=== PATIENT | male | born 1945 | race Caucasian/White ===

== ENCOUNTER 2021-01-26 14:55 | Inpatient (IN) | payer OTHER, MEDICARE ==
[2021-01-26] MEDS ORDERED: Ondansetron 4 MG Tab.DIS PO PRN (15:32)
[2021-01-26] MEDS ORDERED: Sodium Chloride 0.9% 10 ML Syringe FLUSH PRN (15:32)
[2021-01-26] MEDS ORDERED: Acetaminophen 325 MG Tab PO PRN (15:32)
[2021-01-26] MEDS ORDERED: Ondansetron 4 MG/2 ML SDV IV PRN (15:32)
[2021-01-26] MEDS ORDERED: Lactated Ringers 1,000 ML IV ONE (15:45)
[2021-01-26] MEDS ORDERED: Piperacillin/Tazobactam 4.5 GM in Sodium Chloride 0.9% 100 ML IV ONE ×2 (16:00→17:00)
[2021-01-26] MEDS: Lactated Ringers 1,000 ML IV SCH (18:11)
[2021-01-26] MEDS: oxyCODONE 5 MG Tab PO PRN (18:15)
--- NOTE | 2021-01-26 18:43 | PCM.HP.2 ---
H&P History of Present Illness - General Date of Service: 01/26/21 Admit Problem/Dx: Admission Diagnosis/Problem Admission Diagnosis/Problem Abscess Source of Information: Patient History Limitations: Reports: No Limitations - History of Present Illness Initial Comments - Free Text/Narative: Patient underwent a colonoscopy on 01/23/2021 for screening purposes. This was his first colonoscopy. He had large polyps, one of which was at the proximal ascending colon. This was 1.5-2cm and was removed with hot snare in piecemeal fashion. Patient did not have any immediate post op issues. However, he had abdominal pain on post procedure day 1 but this improved. Today, he started having nausea and vomiting and did not want to get up to walk. Family called and I had the patient come in. I saw him in clinic, tender in RLQ >> LLQ >> epigastrium. Had voluntary guarding. We got labs, WBC was normal, CMP shows increased BUN and low Na and K. CT a/p showed contained perforation with air and some fluid. there were signs of secondary developing SBO. I had the pt admitted. Onset of Symptoms: Reports: Gradual Duration of Symptoms: Reports: Day(s): (3) Location: Reports: Abdomen Quality: Reports: Sharp Severity: Moderate Improves with: Reports: Immobilization, Other (lying supine) Worsens with: Reports: Other (sitting), Movement Associated Symptoms: Reports: Nausea/Vomiting Abdomen Pain Score (Numeric/FACES): 4 - Related Data Allergies/Adverse Reactions: Allergies Allergy/AdvReac Type Severity Reaction Status Date / Time seasonal AdvReac Other Uncoded 01/26/21 15:47 Home Medications: Home Meds Albuterol Sulfate [Albuterol Sulfate HFA] 2 puff INH Q6HR PRN 01/26/21 [History] Aspirin 81 mg PO DAILY 01/26/21 [History] Cholecalciferol (Vitamin D3) [Vitamin D3] 25 mcg PO DAILY 01/26/21 [History] Dextran 70/Hypromellose [Artificial Tears Eye Drops] 1 drop OP Q6HR PRN 01/26/21 [History] Fluticasone Furoate [Arnuity Ellipta] 50 mcg NASBOTH DAILY 01/26/21 [History] Metoprolol Succinate [Toprol XL] 25 mg PO DAILY 01/26/21 [History] Mirabegron [Myrbetriq] 50 mg PO DAILY 01/26/21 [History] Multivitamin with Minerals [Multiple Vitamin] 1 tab PO DAILY 01/26/21 [History] Pantoprazole [ProTONIX] 40 mg PO DAILY 01/26/21 [History] Tamsulosin [Flomax] 0.4 mg PO BEDTIME 01/26/21 [History] Tolterodine [Detrol] 4 mg PO DAILY 01/26/21 [History] Ubidecarenone [Coenzyme Q10] 10 mg PO DAILY 01/26/21 [History] atorvaSTATin [Lipitor] 40 mg PO BEDTIME 01/26/21 [History] diphenhydrAMINE [Benadryl] 25 mg PO BEDTIME PRN 01/26/21 [History] lisinopriL [Lisinopril] 20 mg PO DAILY 01/26/21 [History] Past Medical History HEENT History: Reports: Cataract Other HEENT History: Glasses Cardiovascular History: Reports: High Cholesterol, Hypertension, [place] Respiratory History: Reports: SOB Other Genitourinary History: bladder and prostate cancer. urgency and frequency Musculoskeletal History: Reports: Arthritis Other Musculoskeletal History: occassional back pain Endocrine/Metabolic History: Reports: Obesity/BMI 30+ Other Endocrine/Metabolic History: Pre-DM Oncologic (Cancer) History: Reports: Bladder, Prostate - Infectious Disease History Infectious Disease History: Reports: Chicken Pox, Measles, Mumps - Past Surgical History HEENT Surgical History: Reports: Cataract Surgery Cardiovascular Surgical History: Reports: Coronary Artery Stent GI Surgical History: Reports: Appendectomy, Colonoscopy Other GI Surgeries/Procedures: Polyp biopsied Male Surgical History: Reports: Prostate Biopsy Other Male Surgeries/Procedures: Surgery on bladder and prostate for cancer. Social & Family History - Tobacco Use Tobacco Use Status *Q: Former Tobacco User Used Tobacco, but Quit: Yes Month/Year Tobacco Last Used: 1989 - Caffeine Use Caffeine Use: Reports: None - Recreational Drug Use Recreational Drug Use: No H&P Review of Systems - Review of Systems: Review Of Systems: See Below General: Reports: No Symptoms HEENT: Reports: No Symptoms Pulmonary: Reports: No Symptoms Cardiovascular: Reports: No Symptoms Gastrointestinal: Reports: Abdominal Pain, Anorexia, Vomiting Genitourinary: Reports: No Symptoms Musculoskeletal: Reports: No Symptoms Skin: Reports: No Symptoms Psychiatric: Reports: No Symptoms Exam - Exam Exam: See Below - Vital Signs Vital Signs: Last Vital Signs Temp 97.9 F 01/26/21 15:06 Pulse 86 01/26/21 15:06 Resp 20 01/26/21 15:06 BP 141/71 H 01/26/21 15:06 Pulse Ox 92 L 01/26/21 15:06 Weight: 97.296 kg - Exam General: Alert, Oriented, Cooperative Lungs: Clear to Auscultation, Normal Respiratory Effort Cardiovascular: Regular Rate, Regular Rhythm, Normal S1, Normal S2 GI/Abdominal Exam: Distended, Guarding, Tender (RLQ>LLQ) - Patient Data Lab Results Last 24 hrs: Laboratory Results - last 24 hr 01/26/21 Range/Units 16:48 SARS-CoV-2 RNA (JUAN RAMON) Negative (NEGATIVE) Sepsis Event Note - Evaluation Sepsis Screening Result: No Definite Risk - Focused Exam Vital Signs: Vital Signs Temp Pulse Resp BP Pulse Ox 01/26/21 15:06 97.9 F 86 20 141/71 H 92 L Problem List Initiated/Reviewed/Updated: No Orders Last 24hrs: Active Orders 24 hr Category Date Time Status Patient Status [ADT] Routine ADT 01/26/21 15:32 Active Antiembolic Devices [RC] BID Care 01/26/21 15:36 Active Cardiac Monitoring [RC] CONTINUOUS Care 01/26/21 15:35 Active EKG Documentation Completion [RC] ROUTINE Care 01/26/21 15:39 Active Intake and Output [RC] 04,16 Care 01/26/21 15:35 Active Oxygen Therapy [RC] PRN Care 01/26/21 15:32 Active Peripheral IV Care [RC] Q2HR Care 01/26/21 15:36 Active Pulse Oximetry [RC] CONTINUOUS Care 01/26/21 15:35 Active Up ad Kathy [RC] ASDIRECTED Care 01/26/21 15:32 Active VTE/DVT Education [RC] DAILY Care 01/26/21 15:32 Active Vital Signs [RC] Q4HR Care 01/26/21 15:32 Active Nothing per Oral Now Diet [DIET] Diet 01/26/21 Dinner Active BASIC METABOLIC PANEL,BMP [CHEM] AM Lab 01/27/21 05:11 Ordered BASIC METABOLIC PANEL,BMP [CHEM] AM Lab 01/28/21 05:11 Ordered BASIC METABOLIC PANEL,BMP [CHEM] AM Lab 01/29/21 05:11 Ordered BASIC METABOLIC PANEL,BMP [CHEM] AM Lab 01/30/21 05:11 Ordered BASIC METABOLIC PANEL,BMP [CHEM] AM Lab 01/31/21 05:11 Ordered CBC WITH AUTO DIFF [HEME] AM Lab 01/27/21 05:11 Ordered CBC WITH AUTO DIFF [HEME] AM Lab 01/28/21 05:11 Ordered CBC WITH AUTO DIFF [HEME] AM Lab 01/29/21 05:11 Ordered CBC WITH AUTO DIFF [HEME] AM Lab 01/30/21 05:11 Ordered CBC WITH AUTO DIFF [HEME] AM Lab 01/31/21 05:11 Ordered MAGNESIUM [CHEM] AM Lab 01/27/21 05:11 Ordered MAGNESIUM [CHEM] AM Lab 01/28/21 05:11 Ordered MAGNESIUM [CHEM] AM Lab 01/29/21 05:11 Ordered MAGNESIUM [CHEM] AM Lab 01/30/21 05:11 Ordered MAGNESIUM [CHEM] AM Lab 01/31/21 05:11 Ordered PHOSPHORUS [CHEM] AM Lab 01/27/21 05:11 Ordered PHOSPHORUS [CHEM] AM Lab 01/28/21 05:11 Ordered PHOSPHORUS [CHEM] AM Lab 01/29/21 05:11 Ordered PHOSPHORUS [CHEM] AM Lab 01/30/21 05:11 Ordered PHOSPHORUS [CHEM] AM Lab 01/31/21 05:11 Ordered Acetaminophen [TylenoL] Med 01/26/21 15:32 Active 650 mg PO Q4H PRN Enoxaparin [Lovenox] Med 01/28/21 09:00 Active 30 mg SUBCUT DAILY HYDROmorphone [Dilaudid] Med 01/26/21 15:32 Active 0.5 mg IVPUSH Q3H PRN Lactated Ringers [Ringers, Lactated] 1,000 ml Med 01/26/21 16:45 Active IV ASDIRECTED Ondansetron [Zofran ODT] Med 01/26/21 15:32 Active 4 mg PO Q4H PRN Ondansetron [Zofran] Med 01/26/21 15:32 Active 4 mg IV Q4H PRN Piperacillin/Tazobactam [Piperacil-Tazobact] 4.5 gm Med 01/27/21 01:00 Active Sodium Chloride 0.9% [Normal Saline] 100 ml IV Q8H Potassium Chloride [KCl in Water 10 MEQ/100 ML] 10 meq Med 01/26/21 18:00 Active Premix Bag 1 bag IV Q1H Sodium Chloride 0.9% [Saline Flush] Med 01/26/21 15:32 Active 10 ml FLUSH ASDIRECTED PRN oxyCODONE Med 01/26/21 15:39 Active 5 mg PO Q4H PRN Peripheral IV Insertion Adult [OM.PC] Routine Oth 01/26/21 15:32 Ordered Sequential Compression Device [OM.PC] Per Unit Routine Oth 01/26/21 15:35 Ordered Resuscitation Status Routine Resus Stat 01/26/21 15:32 Ordered Medication Orders Acetaminophen (Acetaminophen 325 Mg Tab) 650 mg PO Q4H PRN PRN Reason: Pain (Mild 1-3)/fever Enoxaparin Sodium (Enoxaparin 30 Mg/0.3 Ml Syringe) 30 mg SUBCUT DAILY [facility] Hydromorphone HCl (Hydromorphone 0.5 Mg/0.5 Ml Syringe) 0.5 mg IVPUSH Q3H PRN PRN Reason: Pain (severe 7-10) Lactated Ringer's (Ringers, Lactated) 1,000 mls @ 125 mls/hr IV ASDIRECTED [facility] Last Admin: 01/26/21 18:11 Dose: 125 mls/hr Documented by: SWATI Piperacillin Sod/Tazobactam (Sod 4.5 gm/ Sodium Chloride) 100 mls @ 25 mls/hr IV Q8H [facility] Potassium Chloride 10 meq/ (Premix) 100 mls @ 100 mls/hr IV Q1H [facility] Stop: 01/26/21 19:59 Ondansetron HCl (Ondansetron 4 Mg Tab.Dis) 4 mg PO Q4H PRN PRN Reason: nausea, able to take PO Ondansetron HCl (Ondansetron 4 Mg/2 Ml Sdv) 4 mg IV Q4H PRN PRN Reason: Nausea/Vomiting Oxycodone HCl (Oxycodone 5 Mg Tab) 5 mg PO Q4H PRN PRN Reason: Pain (moderate 4-6) Last Admin: 01/26/21 18:15 Dose: 5 mg Documented by: SWATI Sodium Chloride (Sodium Chloride 0.9% 10 Ml Syringe) 10 ml FLUSH ASDIRECTED PRN PRN Reason: Keep Vein Open Assessment/Plan Comment:: Patient has likely perforation from recent colonoscopy with extensive polypectomy on 01/23/2021. I recommended resuscitation followed by laparoscopic right colectomy, possible open, possible ostomy. We discussed risks, benefits and alternatives for the procedure. Risks discussed include cardiopulmonary issues, leak, injury to adjacent structures, bleeding, infection. Informed consent was obtained.
[2021-01-26] MEDS ORDERED: Potassium Chloride 10 MEQ in Premix Bag 1 BAG IV SCH (19:40)
[2021-01-26] MEDS: Potassium Chloride 10 MEQ in Premix Bag 1 BAG IV SCH ×3 (19:50→21:36)
[2021-01-26] MEDS: HYDROmorphone 0.5 MG/0.5 ML Syringe IVPUSH PRN (20:32)
[2021-01-27] MEDS: Piperacillin/Tazobactam 4.5 GM in Sodium Chloride 0.9% 100 ML IV SCH ×3 (00:16→16:00)
[2021-01-27] MEDS: Lactated Ringers 1,000 ML IV SCH (06:18)
[2021-01-27] MEDS ORDERED: Albuterol 0.083% 2.5 MG/3 ML Neb Soln NEB ONE (08:15)
[2021-01-27] MEDS ORDERED: Lidocaine 1% 4 ML ONE (08:30)
[2021-01-27] MEDS ORDERED: Midazolam 1 MG/ML 2 ML SDV ONE (08:30)
[2021-01-27] MEDS ORDERED: Lactated Ringers 1,000 ML ONE ×4 (08:30→16:11)
[2021-01-27] MEDS ORDERED: Ondansetron 4 MG/2 ML SDV ONE ×2 (08:30→16:39)
[2021-01-27] MEDS ORDERED: fentaNYL 250 MCG/5 ML SDV ONE (08:30)
[2021-01-27] MEDS ORDERED: Propofol 200 MG/20 ML SDV ONE ×4 (08:30→16:10)
[2021-01-27] MEDS ORDERED: Rocuronium 50 MG/5 ML Vial ONE ×3 (08:30→14:22)
[2021-01-27] MEDS ORDERED: Succinylcholine/Sod PF 100 MG/5 ML SYRINGE IV ONE (08:33)
[2021-01-27] MEDS ORDERED: Dexamethasone 4 MG/ML 5 ML MDV ONE (08:33)
--- NOTE | 2021-01-27 09:23 | PCM.PN ---
- General Info Date of Service: 01/27/21 Admission Dx/Problem (Free Text): Admission Diagnosis/Problem Admission Diagnosis/Problem Abscess Subjective Update: Patient feels better than yesterday. No nausea or vomiting. Abd pain is better. Functional Status: Reports: Pain Controlled, Ambulating - Review of Systems General: Reports: No Symptoms HEENT: Reports: No Symptoms Pulmonary: Reports: No Symptoms Cardiovascular: Reports: No Symptoms Gastrointestinal: Reports: Abdominal Pain (RLQ), Decreased Appetite, Diarrhea Genitourinary: Reports: No Symptoms Musculoskeletal: Reports: No Symptoms Skin: Reports: No Symptoms Neurological: Reports: No Symptoms - Patient Data Vitals - Most Recent: Last Vital Signs Temp 97.9 F 01/27/21 07:20 Pulse 75 01/27/21 07:20 Resp 20 01/27/21 07:20 BP 114/49 L 01/27/21 07:20 Pulse Ox 95 01/27/21 08:21 Weight - Most Recent: 97.568 kg I&O - Last 24 Hours: Intake & Output 01/26/21 01/27/21 01/27/21 22:59 06:59 14:59 Intake Total 1534 Output Total 850 Balance 684 Lab Results Last 24 Hours: Laboratory Results - last 24 hr 01/26/21 01/27/21 01/27/21 Range/Units 16:48 04:56 04:56 WBC 7.77 (4.23-9.07) K/mm3 RBC 3.76 L (4.63-6.08) M/mm3 Hgb 11.9 L (13.7-17.5) gm/dl Hct 35.3 L (40.1-51.0) % MCV 93.9 H (79.0-92.2) fl MCH 31.6 (25.7-32.2) pg MCHC 33.7 (32.2-35.5) g/dl RDW Std Deviation 44.8 H (35.1-43.9) fL Plt Count 173 (163-337) K/mm3 MPV 8.9 L (9.4-12.3) fl Neut % (Auto) 72.8 H (34.0-67.9) % Lymph % (Auto) 13.8 L (21.8-53.1) % Thomas % (Auto) 9.1 (5.3-12.2) % Eos % (Auto) 3.5 (0.8-7.0) Baso % (Auto) 0.5 (0.1-1.2) % Neut # (Auto) 5.66 H (1.78-5.38) K/mm3 Lymph # (Auto) 1.07 L (1.32-3.57) K/mm3 Thomas # (Auto) 0.71 (0.30-0.82) K/mm3 Eos # (Auto) 0.27 (0.04-0.54) K/mm3 Baso # (Auto) 0.04 (0.01-0.08) K/mm3 Sodium 142 (136-145) mEq/L Potassium 3.1 L (3.5-5.1) mEq/L Chloride 106 (98-107) mEq/L Carbon Dioxide 27 (21-32) mEq/L Anion Gap 12.1 (5-15) BUN 26 H (7-18) mg/dL Creatinine 1.0 (0.7-1.3) mg/dL Est Cr Clr Drug Dosing 61.75 mL/min Estimated GFR (MDRD) > 60 (>60) mL/min BUN/Creatinine Ratio 26.0 H (14-18) Glucose 110 H (70-99) mg/dL Calcium 8.3 L (8.5-10.1) mg/dL Phosphorus 2.8 (2.6-4.7) mg/dL Magnesium 1.8 (1.8-2.4) mg/dL SARS-CoV-2 RNA (JUAN RAMON) Negative (NEGATIVE) Med Orders - Current: Current Medications Acetaminophen (Acetaminophen 325 Mg Tab) 650 mg PO Q4H PRN PRN Reason: Pain (Mild 1-3)/fever Enoxaparin Sodium (Enoxaparin 30 Mg/0.3 Ml Syringe) 30 mg SUBCUT DAILY [facility] Hydromorphone HCl (Hydromorphone 0.5 Mg/0.5 Ml Syringe) 0.5 mg IVPUSH Q3H PRN PRN Reason: Pain (severe 7-10) Last Admin: 01/26/21 20:32 Dose: 0.5 mg Documented by: Lactated Ringer's (Ringers, Lactated) 1,000 mls @ 125 mls/hr IV ASDIRECTED [facility] Last Admin: 01/27/21 06:18 Dose: 125 mls/hr Documented by: Piperacillin Sod/Tazobactam (Sod 4.5 gm/ Sodium Chloride) 100 mls @ 25 mls/hr IV Q8H [facility] Last Admin: 01/27/21 08:07 Dose: 25 mls/hr Documented by: Potassium Chloride 10 meq/ (Premix) 100 mls @ 100 mls/hr IV Q1H [facility] Stop: 01/27/21 12:14 Ondansetron HCl (Ondansetron 4 Mg Tab.Dis) 4 mg PO Q4H PRN PRN Reason: nausea, able to take PO Ondansetron HCl (Ondansetron 4 Mg/2 Ml Sdv) 4 mg IV Q4H PRN PRN Reason: Nausea/Vomiting Oxycodone HCl (Oxycodone 5 Mg Tab) 5 mg PO Q4H PRN PRN Reason: Pain (moderate 4-6) Last Admin: 01/26/21 18:15 Dose: 5 mg Documented by: Sodium Chloride (Sodium Chloride 0.9% 10 Ml Syringe) 10 ml FLUSH ASDIRECTED PRN PRN Reason: Keep Vein Open Discontinued Medications Albuterol (Albuterol 0.083% 2.5 Mg/3 Ml Neb Soln) 2.5 mg NEB ONETIME ONE Stop: 01/27/21 08:16 Last Admin: 01/27/21 08:21 Dose: 2.5 mg Documented by: Dexamethasone (Dexamethasone 4 Mg/Ml 5 Ml Mdv) Confirm Administered Dose 20 mg .ROUTE .STK-MED ONE Stop: 01/27/21 08:34 Fentanyl (Fentanyl 250 Mcg/5 Ml Sdv) Confirm Administered Dose 250 mcg .ROUTE .STK-MED ONE Stop: 01/27/21 08:31 Lactated Ringer's (Ringers, Lactated) 1,000 mls @ 999 mls/hr IV .BOLUS ONE Stop: 01/26/21 16:45 Last Admin: 01/26/21 16:12 Dose: 999 mls/hr Documented by: Piperacillin Sod/Tazobactam (Sod 4.5 gm/ Sodium Chloride) 100 mls @ 200 mls/hr IV ONETIME ONE Stop: 01/26/21 17:29 Last Admin: 01/26/21 16:34 Dose: 200 mls/hr Documented by: Potassium Chloride 10 meq/ (Premix) 100 mls @ 100 mls/hr IV Q1H [facility] Stop: 01/26/21 19:59 Last Admin: 01/26/21 19:50 Dose: Not Given Documented by: Potassium Chloride 10 meq/ (Premix) 100 mls @ 100 mls/hr IV Q1H [facility] Stop: 01/26/21 21:39 Last Admin: 01/26/21 19:51 Dose: Not Given Documented by: Potassium Chloride 10 meq/ (Premix) 100 mls @ 100 mls/hr IV Q1H [facility] Stop: 01/26/21 21:44 Last Admin: 01/26/21 21:36 Dose: 100 mls/hr Documented by: Lidocaine HCl (Xylocaine-Mpf 1%) Confirm Administered Dose 4 mls @ as directed .ROUTE .STK-MED ONE Stop: 01/27/21 08:31 Lactated Ringer's (Ringers, Lactated) Confirm Administered Dose 1,000 mls @ as directed .ROUTE .STK-MED ONE Stop: 01/27/21 08:31 Midazolam HCl (Midazolam 1 Mg/Ml 2 Ml Sdv) Confirm Administered Dose 2 mg .ROUTE .STK-MED ONE Stop: 01/27/21 08:31 Ondansetron HCl (Ondansetron 4 Mg/2 Ml Sdv) Confirm Administered Dose 4 mg .ROUTE .STK-MED ONE Stop: 01/27/21 08:31 Propofol (Propofol 200 Mg/20 Ml Sdv) Confirm Administered Dose 400 mg .ROUTE .STK-MED ONE Stop: 01/27/21 08:31 Rocuronium Ullin (Rocuronium 50 Mg/5 Ml Vial) Confirm Administered Dose 50 mg .ROUTE .STK-MED ONE Stop: 01/27/21 08:31 - Exam Quality Assessment: Supplemental Oxygen General: Alert, Oriented, Cooperative Lungs: Clear to Auscultation, Normal Respiratory Effort Cardiovascular: Regular Rate, Regular Rhythm, No Murmurs GI/Abdominal Exam: Soft, Distended, Tender, Other (no rebound tenderness today) - Patient Data Lab Results Last 24 hrs: Laboratory Results - last 24 hr 01/26/21 01/27/21 01/27/21 Range/Units 16:48 04:56 04:56 WBC 7.77 (4.23-9.07) K/mm3 RBC 3.76 L (4.63-6.08) M/mm3 Hgb 11.9 L (13.7-17.5) gm/dl Hct 35.3 L (40.1-51.0) % MCV 93.9 H (79.0-92.2) fl MCH 31.6 (25.7-32.2) pg MCHC 33.7 (32.2-35.5) g/dl RDW Std Deviation 44.8 H (35.1-43.9) fL Plt Count 173 (163-337) K/mm3 MPV 8.9 L (9.4-12.3) fl Neut % (Auto) 72.8 H (34.0-67.9) % Lymph % (Auto) 13.8 L (21.8-53.1) % Thomas % (Auto) 9.1 (5.3-12.2) % Eos % (Auto) 3.5 (0.8-7.0) Baso % (Auto) 0.5 (0.1-1.2) % Neut # (Auto) 5.66 H (1.78-5.38) K/mm3 Lymph # (Auto) 1.07 L (1.32-3.57) K/mm3 Thomas # (Auto) 0.71 (0.30-0.82) K/mm3 Eos # (Auto) 0.27 (0.04-0.54) K/mm3 Baso # (Auto) 0.04 (0.01-0.08) K/mm3 Sodium 142 (136-145) mEq/L Potassium 3.1 L (3.5-5.1) mEq/L Chloride 106 (98-107) mEq/L Carbon Dioxide 27 (21-32) mEq/L Anion Gap 12.1 (5-15) BUN 26 H (7-18) mg/dL Creatinine 1.0 (0.7-1.3) mg/dL Est Cr Clr Drug Dosing 61.75 mL/min Estimated GFR (MDRD) > 60 (>60) mL/min BUN/Creatinine Ratio 26.0 H (14-18) Glucose 110 H (70-99) mg/dL Calcium 8.3 L (8.5-10.1) mg/dL Phosphorus 2.8 (2.6-4.7) mg/dL Magnesium 1.8 (1.8-2.4) mg/dL SARS-CoV-2 RNA (JUAN RAMON) Negative (NEGATIVE) Result Diagrams: 01/27/21 04:56 01/27/21 04:56 Sepsis Event Note - Evaluation Sepsis Screening Result: No Definite Risk - Focused Exam Vital Signs: Vital Signs Temp Pulse Resp BP BP Pulse Ox Pulse Ox 01/27/21 08:21 95 01/27/21 07:20 97.9 F 75 20 114/49 L 95 01/27/21 03:00 97.7 F 77 16 106/59 L 93 L 01/27/21 00:15 98.1 F 80 13 120/64 92 L - Problem List Review Problem List Initiated/Reviewed/Updated: No - My Orders Last 24 Hours: My Active Orders 01/26/21 15:32 Patient Status [ADT] Routine Oxygen Therapy [RC] PRN Up ad Kathy [RC] , VTE/DVT Education [RC] DAILY Vital Signs [RC] Q4HR Acetaminophen [TylenoL] 650 mg PO Q4H PRN HYDROmorphone [Dilaudid] 0.5 mg IVPUSH Q3H PRN Ondansetron [Zofran ODT] 4 mg PO Q4H PRN Ondansetron [Zofran] 4 mg IV Q4H PRN Sodium Chloride 0.9% [Saline Flush] 10 ml FLUSH ASDIRECTED PRN Peripheral IV Insertion Adult [OM.PC] Routine Resuscitation Status Routine 01/26/21 15:35 Cardiac Monitoring [RC] CONTINUOUS Intake and Output [RC] 04,16 Pulse Oximetry [RC] CONTINUOUS Sequential Compression Device [OM.PC] Per Unit Routine 01/26/21 15:36 Antiembolic Devices [RC] BID Peripheral IV Care [RC] Q2HR 01/26/21 15:39 oxyCODONE 5 mg PO Q4H PRN 01/26/21 16:45 Lactated Ringers [Ringers, Lactated] 1,000 ml IV ASDIRECTED 01/26/21 Dinner Nothing per Oral Now Diet [DIET] 01/27/21 01:00 Piperacillin/Tazobactam [Piperacil-Tazobact] 4.5 gm Sodium Chloride 0.9% [Normal Saline] 100 ml IV Q8H 01/27/21 04:56 TYPE AND SCREEN [BBK] Stat 01/27/21 08:15 Potassium Chloride [KCl in Water 10 MEQ/100 ML] 10 meq Premix Bag 1 bag IV Q1H 01/27/21 09:00 Schedule Procedure [COMM] Routine 01/28/21 05:11 BASIC METABOLIC PANEL,BMP [CHEM] AM CBC WITH AUTO DIFF [HEME] AM MAGNESIUM [CHEM] AM PHOSPHORUS [CHEM] AM 01/28/21 09:00 Enoxaparin [Lovenox] 30 mg SUBCUT DAILY 01/29/21 05:11 BASIC METABOLIC PANEL,BMP [CHEM] AM CBC WITH AUTO DIFF [HEME] AM MAGNESIUM [CHEM] AM PHOSPHORUS [CHEM] AM 01/30/21 05:11 BASIC METABOLIC PANEL,BMP [CHEM] AM CBC WITH AUTO DIFF [HEME] AM MAGNESIUM [CHEM] AM PHOSPHORUS [CHEM] AM 01/31/21 05:11 BASIC METABOLIC PANEL,BMP [CHEM] AM CBC WITH AUTO DIFF [HEME] AM MAGNESIUM [CHEM] AM PHOSPHORUS [CHEM] AM - Assessment Assessment:: Patient has perforated colon likely from recent colonoscopy. He is now well hydrated and electrolytes are corrected except for K which is slightly low at 3.1 this AM. We will replenish K as we proceed with surgery. I discussed the plan with family again this AM. - Plan Plan:: We will proceed with surgery this AM.
[2021-01-27] MEDS: Potassium Chloride 10 MEQ in Premix Bag 1 BAG IV SCH ×5 (09:24→15:52)
[2021-01-27] MEDS: Bupivacaine 0.5%/EPINEPHrine 1:200,000 50 ML MDV ONE ×2 (11:27→12:06)
[2021-01-27] MEDS ORDERED: Ketamine 500 mg/10 ML MDV ONE (11:39)
[2021-01-27] MEDS ORDERED: Metoprolol Tartrate 5 MG/5 ML SDV ONE (11:49)
--- NOTE | 2021-01-27 12:09 | PCM.PREANE ---
Preanesthetic Assessment - Procedure Proposed Procedure: Laparoscopic Right Hemicolectomy - Anesthesia/Transfusion/Family Hx Anesthesia History: Prior Anesthesia Without Reaction Family History of Anesthesia Reaction: No Transfusion History: No Prior Transfusion(s) - Review of Systems General: Weakness Pulmonary: Shortness of Breath (Due to abdominal pain, otherwise not present. ), Other (On 3 L NC to maintain saturations of 95%. Former smoker quite 10 years ago. Clinic SpO2 values low 90's at baseline. ) Cardiovascular: Other (History of VA 2 years ago, stent x1 placed, follows regularly with cardiology, Dr. Garcia. Walks 1 mile 5x per week without difficulty. No further chest pain since his VA. ) Gastrointestinal: Abdominal Pain, Decreased Appetite, Nausea, Vomiting (Yesterday ) Neurological: Other (Chronic Back Pain) Other: Reports: None - Physical Assessment NPO Status Date: 01/26/21 NPO Status Time: 12:00 Vital Signs: Last Vital Signs Temp 36.6 C 01/27/21 07:20 Pulse 75 01/27/21 07:20 Resp 20 01/27/21 07:20 BP 114/49 L 01/27/21 07:20 Pulse Ox 95 01/27/21 08:21 Height: 1.73 m Weight: 97.568 kg ASA Class: 3 Mental Status: Alert & Oriented x3 Airway Class: Mallampati = 3 (Large Tongue) Dentition: Reports: Dentures (At home), Edentulous Thyro-Mental Finger Breadths: 3 Mouth Opening Finger Breadths: 3 ROM/Head Extension: Full Lungs: Clear to Auscultation, Normal Respiratory Effort, Decreased Breath Sounds (Bilateral Bases ) Cardiovascular: Regular Rate, Regular Rhythm - Lab Values: Laboratory Last Values WBC 7.77 K/mm3 (4.23-9.07) 01/27/21 04:56 RBC 3.76 M/mm3 (4.63-6.08) L 01/27/21 04:56 Hgb 11.9 gm/dl (13.7-17.5) L 01/27/21 04:56 Hct 35.3 % (40.1-51.0) L 01/27/21 04:56 MCV 93.9 fl (79.0-92.2) H 01/27/21 04:56 MCH 31.6 pg (25.7-32.2) 01/27/21 04:56 MCHC 33.7 g/dl (32.2-35.5) 01/27/21 04:56 RDW Std Deviation 44.8 fL (35.1-43.9) H 01/27/21 04:56 Plt Count 173 K/mm3 (163-337) 01/27/21 04:56 MPV 8.9 fl (9.4-12.3) L 01/27/21 04:56 Neut % (Auto) 72.8 % (34.0-67.9) H 01/27/21 04:56 Lymph % (Auto) 13.8 % (21.8-53.1) L 01/27/21 04:56 Wirt % (Auto) 9.1 % (5.3-12.2) 01/27/21 04:56 Eos % (Auto) 3.5 (0.8-7.0) 01/27/21 04:56 Baso % (Auto) 0.5 % (0.1-1.2) 01/27/21 04:56 Neut # (Auto) 5.66 K/mm3 (1.78-5.38) H 01/27/21 04:56 Lymph # (Auto) 1.07 K/mm3 (1.32-3.57) L 01/27/21 04:56 Wirt # (Auto) 0.71 K/mm3 (0.30-0.82) 01/27/21 04:56 Eos # (Auto) 0.27 K/mm3 (0.04-0.54) 01/27/21 04:56 Baso # (Auto) 0.04 K/mm3 (0.01-0.08) 01/27/21 04:56 Sodium 142 mEq/L (136-145) 01/27/21 04:56 Potassium 3.1 mEq/L (3.5-5.1) L 01/27/21 04:56 Chloride 106 mEq/L (98-107) 01/27/21 04:56 Carbon Dioxide 27 mEq/L (21-32) 01/27/21 04:56 Anion Gap 12.1 (5-15) 01/27/21 04:56 BUN 26 mg/dL (7-18) H 01/27/21 04:56 Creatinine 1.0 mg/dL (0.7-1.3) 01/27/21 04:56 Est Cr Clr Drug Dosing 61.75 mL/min 01/27/21 04:56 Estimated GFR (MDRD) > 60 mL/min (>60) 01/27/21 04:56 BUN/Creatinine Ratio 26.0 (14-18) H 01/27/21 04:56 Glucose 110 mg/dL (70-99) H 01/27/21 04:56 Calcium 8.3 mg/dL (8.5-10.1) L 01/27/21 04:56 Phosphorus 2.8 mg/dL (2.6-4.7) 01/27/21 04:56 Magnesium 1.8 mg/dL (1.8-2.4) 01/27/21 04:56 SARS-CoV-2 RNA (JUAN RAMON) Negative (NEGATIVE) 01/26/21 16:48 Blood Type A POSITIVE 01/27/21 04:56 Gel Antibody Screen Negative 01/27/21 04:56 - Imaging/EKG Impressions: Reviewed, previous VA. - Allergies Allergies/Adverse Reactions: Allergies Allergy/AdvReac Type Severity Reaction Status Date / Time seasonal AdvReac Other Uncoded 01/26/21 15:47 - Blood Blood Available: No - Anesthesia Plan Pre-Op Medication Ordered: Beta Laura (Metoprolol to be given IV ), Other (Continue IV KCL orderd by Dr. Carvalho for KCL of 3.1 this morning. ) Beta Laura: Metoprolol Med Last Dose Date: 01/26/21 Med Last Dose Time: 08:00 - Acknowledgements Anesthesia Type Planned: General Anesthesia (RSI with CP) Pt an Appropriate Candidate for the Planned Anesthesia: Yes Alternatives and Risks of Anesthesia Discussed w Pt/Guardian: Yes Pt/Guardian Understands and Agrees with Anesthesia Plan: Yes PreAnesthesia Questionnaire HEENT History: Reports: Cataract Other HEENT History: Glasses Cardiovascular History: Reports: High Cholesterol, Hypertension, VA Respiratory History: Reports: SOB Other Genitourinary History: bladder and prostate cancer. urgency and frequency Musculoskeletal History: Reports: Arthritis Other Musculoskeletal History: occassional back pain Endocrine/Metabolic History: Reports: Obesity/BMI 30+ Other Endocrine/Metabolic History: Pre-DM Oncologic (Cancer) History: Reports: Bladder, Prostate - Infectious Disease History Infectious Disease History: Reports: Chicken Pox, Measles, Mumps - Past Surgical History HEENT Surgical History: Reports: Cataract Surgery Cardiovascular Surgical History: Reports: Coronary Artery Stent GI Surgical History: Reports: Appendectomy, Colonoscopy Other GI Surgeries/Procedures: Polyp biopsied Male Surgical History: Reports: Prostate Biopsy Other Male Surgeries/Procedures: Surgery on bladder and prostate for cancer. - SUBSTANCE USE Tobacco Use Status *Q: Former Tobacco User Tobacco Use Within Last Twelve Months: Cigarettes Recreational Drug Use History: No - HOME MEDS Home Medications: Home Meds Albuterol Sulfate [Albuterol Sulfate HFA] 2 puff INH Q6HR PRN 01/26/21 [History] Aspirin 81 mg PO DAILY 01/26/21 [History] Cholecalciferol (Vitamin D3) [Vitamin D3] 25 mcg PO DAILY 01/26/21 [History] Dextran 70/Hypromellose [Artificial Tears Eye Drops] 1 drop OP Q6HR PRN 01/26/21 [History] Fluticasone Furoate [Arnuity Ellipta] 50 mcg NASBOTH DAILY 01/26/21 [History] Metoprolol Succinate [Toprol XL] 25 mg PO DAILY 01/26/21 [History] Mirabegron [Myrbetriq] 50 mg PO DAILY 01/26/21 [History] Multivitamin with Minerals [Multiple Vitamin] 1 tab PO DAILY 01/26/21 [History] Pantoprazole [ProTONIX] 40 mg PO DAILY 01/26/21 [History] Tamsulosin [Flomax] 0.4 mg PO BEDTIME 01/26/21 [History] Tolterodine [Detrol] 4 mg PO DAILY 01/26/21 [History] Ubidecarenone [Coenzyme Q10] 10 mg PO DAILY 01/26/21 [History] atorvaSTATin [Lipitor] 40 mg PO BEDTIME 01/26/21 [History] diphenhydrAMINE [Benadryl] 25 mg PO BEDTIME PRN 01/26/21 [History] lisinopriL [Lisinopril] 20 mg PO DAILY 01/26/21 [History] - CURRENT (IN HOUSE) MEDS Current Meds: Current Medications Acetaminophen (Acetaminophen 325 Mg Tab) 650 mg PO Q4H PRN PRN Reason: Pain (Mild 1-3)/fever Enoxaparin Sodium (Enoxaparin 30 Mg/0.3 Ml Syringe) 30 mg SUBCUT DAILY [facility] Hydromorphone HCl (Hydromorphone 0.5 Mg/0.5 Ml Syringe) 0.5 mg IVPUSH Q3H PRN PRN Reason: Pain (severe 7-10) Last Admin: 01/26/21 20:32 Dose: 0.5 mg Documented by: Lactated Ringer's (Ringers, Lactated) 1,000 mls @ 125 mls/hr IV ASDIRECTED [facility] Last Admin: 01/27/21 06:18 Dose: 125 mls/hr Documented by: Piperacillin Sod/Tazobactam (Sod 4.5 gm/ Sodium Chloride) 100 mls @ 25 mls/hr IV Q8H [facility] Last Admin: 01/27/21 08:07 Dose: 25 mls/hr Documented by: Potassium Chloride 10 meq/ (Premix) 100 mls @ 100 mls/hr IV Q1H [facility] Stop: 01/27/21 12:14 Last Admin: 01/27/21 10:30 Dose: 100 mls/hr Documented by: Ondansetron HCl (Ondansetron 4 Mg Tab.Dis) 4 mg PO Q4H PRN PRN Reason: nausea, able to take PO Ondansetron HCl (Ondansetron 4 Mg/2 Ml Sdv) 4 mg IV Q4H PRN PRN Reason: Nausea/Vomiting Oxycodone HCl (Oxycodone 5 Mg Tab) 5 mg PO Q4H PRN PRN Reason: Pain (moderate 4-6) Last Admin: 01/26/21 18:15 Dose: 5 mg Documented by: Sodium Chloride (Sodium Chloride 0.9% 10 Ml Syringe) 10 ml FLUSH ASDIRECTED PRN PRN Reason: Keep Vein Open Discontinued Medications Albuterol (Albuterol 0.083% 2.5 Mg/3 Ml Neb Soln) 2.5 mg NEB ONETIME ONE Stop: 01/27/21 08:16 Last Admin: 01/27/21 08:21 Dose: 2.5 mg Documented by: Bupivacaine HCl/Epinephrine Bitart (Bupivacaine 0.5%/Epinephrine 1:200,000 50 Ml Mdv) Confirm Administered Dose 100 ml .ROUTE .STK-MED ONE Stop: 01/27/21 09:48 Dexamethasone (Dexamethasone 4 Mg/Ml 5 Ml Mdv) Confirm Administered Dose 20 mg .ROUTE .STK-MED ONE Stop: 01/27/21 08:34 Fentanyl (Fentanyl 250 Mcg/5 Ml Sdv) Confirm Administered Dose 250 mcg .ROUTE .STK-MED ONE Stop: 01/27/21 08:31 Lactated Ringer's (Ringers, Lactated) 1,000 mls @ 999 mls/hr IV .BOLUS ONE Stop: 01/26/21 16:45 Last Admin: 01/26/21 16:12 Dose: 999 mls/hr Documented by: Piperacillin Sod/Tazobactam (Sod 4.5 gm/ Sodium Chloride) 100 mls @ 200 mls/hr IV ONETIME ONE Stop: 01/26/21 17:29 Last Admin: 01/26/21 16:34 Dose: 200 mls/hr Documented by: Potassium Chloride 10 meq/ (Premix) 100 mls @ 100 mls/hr IV Q1H [facility] Stop: 01/26/21 19:59 Last Admin: 01/26/21 19:50 Dose: Not Given Documented by: Potassium Chloride 10 meq/ (Premix) 100 mls @ 100 mls/hr IV Q1H [facility] Stop: 01/26/21 21:39 Last Admin: 01/26/21 19:51 Dose: Not Given Documented by: Potassium Chloride 10 meq/ (Premix) 100 mls @ 100 mls/hr IV Q1H [facility] Stop: 01/26/21 21:44 Last Admin: 01/26/21 21:36 Dose: 100 mls/hr Documented by: Lidocaine HCl (Xylocaine-Mpf 1%) Confirm Administered Dose 4 mls @ as directed .ROUTE .STK-MED ONE Stop: 01/27/21 08:31 Lactated Ringer's (Ringers, Lactated) Confirm Administered Dose 1,000 mls @ as directed .ROUTE .STK-MED ONE Stop: 01/27/21 08:31 Ketamine HCl (Ketamine 500 Mg/10 Ml Mdv) Confirm Administered Dose 500 mg .ROUTE .STK-MED ONE Stop: 01/27/21 11:40 Metoprolol Tartrate (Metoprolol Tartrate 5 Mg/5 Ml Sdv) Confirm Administered Dose 5 mg .ROUTE .STK-MED ONE Stop: 01/27/21 11:50 Midazolam HCl (Midazolam 1 Mg/Ml 2 Ml Sdv) Confirm Administered Dose 2 mg .ROUTE .STK-MED ONE Stop: 01/27/21 08:31 Ondansetron HCl (Ondansetron 4 Mg/2 Ml Sdv) Confirm Administered Dose 4 mg .ROUTE .STK-MED ONE Stop: 01/27/21 08:31 Propofol (Propofol 200 Mg/20 Ml Sdv) Confirm Administered Dose 400 mg .ROUTE .[employer]-MED ONE Stop: 01/27/21 08:31 Rocuronium [place] (Rocuronium 50 Mg/5 Ml Vial) Confirm Administered Dose 50 mg .ROUTE .[employer]-MED ONE Stop: 01/27/21 08:31
[2021-01-27] MEDS ORDERED: fentaNYL 100 MCG/2 ML SDV ONE ×2 (14:38→16:40)
[2021-01-27] MEDS ORDERED: HYDROmorphone 0.5 MG/0.5 ML Syringe IVPUSH PRN (14:55)
[2021-01-27] MEDS ORDERED: Ondansetron 4 MG/2 ML SDV IVPUSH PRN (14:55)
[2021-01-27] MEDS ORDERED: fentaNYL 100 MCG/2 ML SDV IVPUSH PRN (14:55)
[2021-01-27] MEDS ORDERED: Glycopyrrolate 0.2 MG/ML SDV ONE (15:00)
[2021-01-27] MEDS ORDERED: HYDROmorphone 0.5 MG/0.5 ML Syringe ONE (16:07)
[2021-01-27] MEDS ORDERED: Albuterol 6.7 GM Inhaler INH PRN (16:59)
[2021-01-27] MEDS ORDERED: Metoprolol Tartrate 5 MG in Sodium Chloride 0.9% 50 ML IV SCH (17:00)
--- NOTE | 2021-01-27 17:07 | PCM.POSTAN ---
POST ANESTHESIA ASSESSMENT - MENTAL STATUS Mental Status: Other (Drowsy) - VITAL SIGNS Vital Signs: Last Vital Signs Temp 36.8 C 01/27/21 16:55 Pulse 87 01/27/21 16:55 Resp 24 H 01/27/21 16:55 BP 146/74 H 01/27/21 16:55 Pulse Ox 95 01/27/21 16:55 - RESPIRATORY Respiratory Status: Respiratory Rate WNL, Airway Patent, O2 Saturation Stable, Supplemental Oxygen - CARDIOVASCULAR CV Status: Pulse Rate WNL, Blood Pressure Stable - GASTROINTESTINAL GI Status: No Symptoms - PAIN Pain Score: 0 - POST OP HYDRATION Hydration Status: Adequate & Stable
--- NOTE | 2021-01-27 18:27 | OR ---
DATE OF OPERATION: 01/27/2021 SURGEON: Nakia Carvalho MD PREOPERATIVE DIAGNOSIS: Colonic perforation. POSTOPERATIVE DIAGNOSIS: Colonic perforation with adjacent abscess and necrosis OPERATION PERFORMED: Laparoscopic right hemicolectomy with ileocolonic anastomosis ANESTHESIA: General endotracheal. ESTIMATED BLOOD LOSS: 400 mL. FINDINGS: Posterior proximal ascending colon perforation with retroperitoneal abscess and phlegmon. Edema of the small bowel. INDICATION AND CONSENT: The patient is a 75-year-old male who presented to my clinic for colonoscopy. The patient never had colonoscopy in the past. He has been doing fine and wanted to have one colonoscopy. I discussed with the patient the risks, benefits, and alternatives, and informed consent was obtained. Colonoscopy was performed. Several large polyps were found and removed. Two 1 - 2 cm polyps in the proximal ascending colon were found and removed with snare cautery. The patient went home without any complication post procedure, but post procedure day #1, the patient started having abdominal pain. We discussed with the patient about this and asked the patient to go to the emergency department should the pain not resolve within a few hours. The patient stayed at home until Friday which is three days later and came to my clinic because he was getting worse. He was having nausea and vomiting at that time as well as severe abdominal pain. I examined him in the clinic and I was concerned for perforation. Therefore, I send the patient for CT scan and labs. Labs were fairly reassuring with white count within normal range, slight dehydration, but nothing remarkable. CT scan did reveal right colonic perforation with associated abscess and air that was contained. Due to these findings and dehydration, I recommended that we admit the patient for IV antibiotics and hydration followed by colectomy to remove the area of perforation. I discussed with the patient risks, benefits, and alternatives, even possibilities of ostomy, and informed consent was obtained. DESCRIPTION OF PROCEDURE: The patient was taken to the operating room after being hydrated. A Owens was placed and endotracheal anesthesia was induced. Then, time-out was performed. The abdomen was clipped of most hair and prepped and draped in the usual sterile fashion. The patient was already on Zosyn, therefore no additional preop antibiotics were needed. Time out was performed. We began the procedure by making a supraumbilical incision, elevating the umbilical stalk and introducing a Veress needle. The abdomen was insufflated to 15 mmHg. Then, a 12 mm trocar was placed. The abdomen was inspected, there were no injuries due to Veress or trocar placement. Then, two 5 mm trocars were placed, one in the suprapubic and another one in the left upper quadrant. We inspected the abdomen. There was some inflammatory fluid, but nothing else. We started to focus on the right side of the abdomen. The patient was placed in slight Trendelenburg with left side down. We began by removing small bowel from the right lower quadrant area. There was a large phlegmon in the right lower quadrant around the cecum. This area was pretty stuck down to the retroperitoneum. We began carefully incising the peritoneum and trying to find the plane between the mesentery of the colon and retroperitoneum structures. This area was edematous and boggy and it was difficult to dissect. We went right above the duodenum, opened this window, found the correct plane, and dissected here slightly, but because of the inflammation, this area also was difficult to dissect. We decided to do lateral to medial. The right line of Todt was opened and colon mobilized medially and we got into the retroperitoneal abscess. This was drained and the area of perforation was noted here in the posterior proximal ascending colon. It was about 1 cm. There was not much stool contamination. This area was irrigated copiously with warm saline. Dissection was continued in the lateral to medial fashion using LigaSure Impact device all the way to the hepatic flexure and then the small bowel was also released at its mesentery. Once we did that, we went back medially and found both the right colic vessels and ileocolic vessels. These were isolated and ligated using the LigaSure Impact and/or clips. Then, the ascending colon mesentery was divided with LigaSure Impact, freeing the cecum and ascending colon. Next, the patient was placed in the reverse Trendelenburg and we went to take down the hepatic flexure. The lesser curvature was entered and part of the mesentery was transected and we entered into the hepatic flexure and slowly, we started to release the colon from the hepatic flexure, both bluntly and using cautery. There was a significant amount of scar tissue between the colon and the liver. These were taken down carefully. Eventually, the hepatic flexure was taken down completely. Now, the entire ascending colon was freely mobile. Once this was done, we irrigated the abdomen with 4 L of warm saline and suctioned until the irrigant drained clear. Then, at this point, we decided to externalize the bowel for anastomosis. The supraumbilical incision was extended to 5 cm and then an Oleg wound protector was placed and then the colon that was boggy and edematous as well as small bowel were externalized. Using the blue load of Endo JACKIE linear stapler, the terminal ileum was transected about 15 cm from the ileocecal valve. The colon was transected about 10 cm from the ileocecal valve at an area that was not inflamed. Of note, the mesentery of the small bowel as well as the small bowel were both edematous. During the positioning of the bowel to be able to perform anastomosis, we realized that the colon end was very short and was not coming out from the abdomen. The abdomen was insufflated and we inspected the area. We noted that there was still some colonic mesentery that was not taken down. We took down additional mesentery of the colon. Therefore, we were able to gain additional length of the colon to externalize for anastomosis. Once this was done, we externalized and performed a stapled isoperistaltic anastomosis between the ileum and the colon. Therefore, this was ileocolonic anastomosis using a 55 mm linear stapler. The common enterotomy was closed manually using 3-0 Vicryl stitches. Then, the colon portion of the common enterotomy was imbricated. The small bowel side of the anastomosis was not imbricated as the muscular layer was not holding stitches due to edema. Once this was done, the anastomosis appeared to be patent and viable. We placed it into the abdomen and re-insufflated the abdomen and inspected it while was in the abdomen. It seemed to be lying down well. At this point, the decision was made to place a drain to be able to drain whatever fluid that we irrigated that was not able to be suctioned out. A 19- [place] Rajan drain was placed and taken out through the left upper quadrant, the drain was laid down in the right lower quadrant going down to parts of the pelvis. Once this was done, drain was secured in place with 3-0 Prolene stitch and the air was suctioned out and we began closure. The supraumbilical incision was closed at the fascial level with #1 Prolene stitch followed by stapling after copious irrigation. The suprapubic 5 mm incision was closed at the skin level with 4-0 Monocryl followed by Dermabond and then the other incision in left upper quadrant, the incision where the drain was coming out of. Prior to closure of the fascia, counts were done x2 and found to be correct. At the end of the procedure, counts were done again and found to be correct and the procedure was concluded. The patient was awoken from anesthesia, extubated, and taken to the room for further recovery. MMODAL /[id number] MOOK
[2021-01-27] MEDS: Metoprolol Tartrate 5 MG/5 ML SDV IVPUSH SCH ×2 (18:32→23:55)
[2021-01-27] MEDS ORDERED: diphenhydrAMINE 50 MG/ML SDV IVPUSH PRN (19:22)
--- NOTE | 2021-01-27 19:31 | PCM48HPAN ---
Post Anesthesia Note - EVALUATION WITHIN 48HRS OF ANESTHETIC Vital Signs in Normal Range: Yes Patient Participated in Evaluation: Yes Respiratory Function Stable: Yes Airway Patent: Yes Cardiovascular Function Stable: Yes Hydration Status Stable: Yes Pain Control Satisfactory: Yes Nausea and Vomiting Control Satisfactory: Yes Mental Status Recovered: Yes Vital Signs: Last Vital Signs Temp 36.6 C 01/27/21 18:14 Pulse 89 01/27/21 18:33 Resp 16 01/27/21 18:14 BP 134/74 01/27/21 18:45 Pulse Ox 97 01/27/21 18:45 - COMMENTS/OBSERVATIONS Free Text/Narrative:: Mando is resting in bed at this time. No further questions pr concerns. Airway patent with nasal oxygen in place.
[2021-01-27] MEDS: HYDROmorphone 0.5 MG/0.5 ML Syringe IVPUSH PRN (23:52)
[2021-01-28] MEDS: Piperacillin/Tazobactam 4.5 GM in Sodium Chloride 0.9% 100 ML IV SCH ×3 (00:06→18:09)
[2021-01-28] MEDS: Lactated Ringers 1,000 ML IV SCH ×2 (00:06→10:00)
[2021-01-28] MEDS: HYDROmorphone 0.5 MG/0.5 ML Syringe IVPUSH PRN ×4 (04:17→18:08)
[2021-01-28] MEDS: Metoprolol Tartrate 5 MG/5 ML SDV IVPUSH SCH ×3 (05:54→18:48)
[2021-01-28] MEDS ORDERED: Pantoprazole 40 MG Vial ONE (08:40)
[2021-01-28] MEDS: oxyCODONE 5 MG Tab PO PRN (08:50)
[2021-01-28] MEDS: Aspirin 81 MG Tab.Chew PO SCH (08:51)
[2021-01-28] MEDS: Enoxaparin 30 MG/0.3 ML Syringe SUBCUT SCH (09:00)
[2021-01-28] MEDS ORDERED: Pantoprazole 40 MG in Sodium Chloride 0.9% 100 ML IV SCH (09:00)
[2021-01-28] MEDS: Pantoprazole 40 MG Vial IVPUSH SCH (09:07)
[2021-01-28] MEDS ORDERED: Magnesium Sulfate/Water 4 GM in Premix Bag 1 BAG IV ONE (10:58)
--- NOTE | 2021-01-28 11:26 | PCM.PN ---
- General Info Date of Service: 01/28/21 Admission Dx/Problem (Free Text): Admission Diagnosis/Problem Admission Diagnosis/Problem Abscess Subjective Update: Pain is still there. was able to get out of bed to chair today. No nausea or vomiting. Functional Status: Reports: Incentive Spirometry, Other (OOB to chair) - Review of Systems General: Reports: No Symptoms HEENT: Reports: No Symptoms Pulmonary: Reports: No Symptoms Cardiovascular: Reports: No Symptoms Gastrointestinal: Reports: Abdominal Pain Genitourinary: Reports: No Symptoms Musculoskeletal: Reports: No Symptoms Skin: Reports: No Symptoms - Patient Data Vitals - Most Recent: Last Vital Signs Temp 98.4 F 01/28/21 07:37 Pulse 79 01/28/21 07:37 Resp 24 H 01/28/21 07:37 BP 121/86 01/28/21 07:37 Pulse Ox 93 L 01/28/21 08:12 Weight - Most Recent: 98.52 kg I&O - Last 24 Hours: Intake & Output 01/27/21 01/28/21 01/28/21 22:59 06:59 14:59 Intake Total 1000 1851 Output Total 325 107% Balance 675 792 Lab Results Last 24 Hours: Laboratory Results - last 24 hr 01/27/21 01/28/21 01/28/21 Range/Units 18:30 05:33 05:33 WBC 6.28 (4.23-9.07) K/mm3 RBC 3.46 L (4.63-6.08) M/mm3 Hgb 11.1 L (13.7-17.5) gm/dl Hct 33.1 L (40.1-51.0) % MCV 95.7 H (79.0-92.2) fl MCH 32.1 (25.7-32.2) pg MCHC 33.5 (32.2-35.5) g/dl RDW Std Deviation 44.7 H (35.1-43.9) fL Plt Count 183 (163-337) K/mm3 MPV 9.1 L (9.4-12.3) fl Neut % (Auto) 73.2 H (34.0-67.9) % Lymph % (Auto) 16.4 L (21.8-53.1) % [place] % (Auto) 9.2 (5.3-12.2) % Eos % (Auto) 0 L (0.8-7.0) Baso % (Auto) 0.2 (0.1-1.2) % Neut # (Auto) 4.60 (1.78-5.38) K/mm3 Lymph # (Auto) 1.03 L (1.32-3.57) K/mm3 [place] # (Auto) 0.58 (0.30-0.82) K/mm3 Eos # (Auto) 0.00 L (0.04-0.54) K/mm3 Baso # (Auto) 0.01 (0.01-0.08) K/mm3 Sodium 143 143 (136-145) mEq/L Potassium 4.0 3.9 (3.5-5.1) mEq/L Chloride 106 108 H (98-107) mEq/L Carbon Dioxide 24 28 (21-32) mEq/L Anion Gap 17.0 H 10.9 (5-15) BUN 19 H 16 (7-18) mg/dL Creatinine 0.9 0.8 (0.7-1.3) mg/dL Est Cr Clr Drug Dosing 68.61 77.19 mL/min Estimated GFR (MDRD) > 60 > 60 (>60) mL/min BUN/Creatinine Ratio 21.1 H 20.0 H (14-18) Glucose 166 H 139 H (70-99) mg/dL Calcium 7.8 L 7.6 L (8.5-10.1) mg/dL Phosphorus 3.4 (2.6-4.7) mg/dL Magnesium 1.5 L (1.8-2.4) mg/dL Med Orders - Current: Current Medications Acetaminophen (Acetaminophen 325 Mg Tab) 650 mg PO Q6H [facility] Albuterol (Albuterol 6.7 Gm Inhaler) 0 gm INH Q6HR PRN PRN Reason: Shortness of Breath Aspirin (Aspirin 81 Mg Tab.Chew) 81 mg PO DAILY [facility] Last Admin: 01/28/21 08:51 Dose: 81 mg Documented by: Diphenhydramine HCl (Diphenhydramine 50 Mg/Ml Sdv) 25 mg IVPUSH BEDTIME PRN PRN Reason: Sleep Enoxaparin Sodium (Enoxaparin 30 Mg/0.3 Ml Syringe) 30 mg SUBCUT DAILY [facility] Last Admin: 01/28/21 09:00 Dose: 30 mg Documented by: Hydromorphone HCl (Hydromorphone 0.5 Mg/0.5 Ml Syringe) 0.5 mg IVPUSH Q3H PRN PRN Reason: Pain (severe 7-10) Last Admin: 01/28/21 10:00 Dose: 0.5 mg Documented by: Piperacillin Sod/Tazobactam (Sod 4.5 gm/ Sodium Chloride) 100 mls @ 25 mls/hr IV Q8H [facility] Last Admin: 01/28/21 09:00 Dose: 25 mls/hr Documented by: Magnesium Sulfate 4 gm/ Premix 50 mls @ 12.5 mls/hr IV ONETIME ONE Stop: 01/28/21 14:57 Potassium Chloride/Dextrose/Sod Cl (D5 1/2 Ns W/ 20 Meq/L Kcl) 1,000 mls @ 75 mls/hr IV ASDIRECTED [facility] Metoprolol Tartrate (Metoprolol Tartrate 5 Mg/5 Ml Sdv) 5 mg IVPUSH Q6H [facility] Last Admin: 01/28/21 05:54 Dose: 5 mg Documented by: Fluticasone Furoate [Arnuity Ellipta] 50mcg Inh 50 mcg INH DAILY [facility] Ondansetron HCl (Ondansetron 4 Mg Tab.Dis) 4 mg PO Q4H PRN PRN Reason: nausea, able to take PO Ondansetron HCl (Ondansetron 4 Mg/2 Ml Sdv) 4 mg IV Q4H PRN PRN Reason: Nausea/Vomiting Oxycodone HCl (Oxycodone 5 Mg Tab) 5 mg PO Q4H PRN PRN Reason: Pain (moderate 4-6) Last Admin: 01/28/21 08:50 Dose: 5 mg Documented by: Pantoprazole Sodium (Pantoprazole 40 Mg Vial) 40 mg IVPUSH DAILY [facility] Last Admin: 01/28/21 09:07 Dose: 40 mg Documented by: Sodium Chloride (Sodium Chloride 0.9% 10 Ml Syringe) 10 ml FLUSH ASDIRECTED PRN PRN Reason: Keep Vein Open Discontinued Medications Acetaminophen (Acetaminophen 325 Mg Tab) 650 mg PO Q4H PRN PRN Reason: Pain (Mild 1-3)/fever Albuterol (Albuterol 0.083% 2.5 Mg/3 Ml Neb Soln) 2.5 mg NEB ONETIME ONE Stop: 01/27/21 08:16 Last Admin: 01/27/21 08:21 Dose: 2.5 mg Documented by: Bupivacaine HCl/Epinephrine Bitart (Bupivacaine 0.5%/Epinephrine 1:200,000 50 Ml Mdv) Confirm Administered Dose 100 ml .ROUTE .STK-MED ONE Stop: 01/27/21 09:48 Last Admin: 01/27/21 11:27 Dose: 30 ml Documented by: Dexamethasone (Dexamethasone 4 Mg/Ml 5 Ml Mdv) Confirm Administered Dose 20 mg .ROUTE .STK-MED ONE Stop: 01/27/21 08:34 Fentanyl (Fentanyl 250 Mcg/5 Ml Sdv) Confirm Administered Dose 250 mcg .ROUTE .STK-MED ONE Stop: 01/27/21 08:31 Fentanyl (Fentanyl 100 Mcg/2 Ml Sdv) Confirm Administered Dose 100 mcg .ROUTE .STK-MED ONE Stop: 01/27/21 14:39 Fentanyl (Fentanyl 100 Mcg/2 Ml Sdv) 50 mcg IVPUSH Q5M PRN PRN Reason: Pain Fentanyl (Fentanyl 100 Mcg/2 Ml Sdv) Confirm Administered Dose 100 mcg .ROUTE .STK-MED ONE Stop: 01/27/21 16:41 Glycopyrrolate (Glycopyrrolate 0.2 Mg/Ml Sdv) Confirm Administered Dose 0.4 mg .ROUTE .STK-MED ONE Stop: 01/27/21 15:01 Hydromorphone HCl (Hydromorphone 0.5 Mg/0.5 Ml Syringe) 0.5 mg IVPUSH Q10M PRN PRN Reason: Pain (severe 7-10) Hydromorphone HCl (Hydromorphone 0.5 Mg/0.5 Ml Syringe) Confirm Administered Dose 0.5 mg .ROUTE .STK-MED ONE Stop: 01/27/21 16:08 Lactated Ringer's (Ringers, Lactated) 1,000 mls @ 999 mls/hr IV .BOLUS ONE Stop: 01/26/21 16:45 Last Admin: 01/26/21 16:12 Dose: 999 mls/hr Documented by: Lactated Ringer's (Ringers, Lactated) 1,000 mls @ 125 mls/hr IV ASDIRECTED [facility] Last Admin: 01/28/21 10:00 Dose: 125 mls/hr Documented by: Piperacillin Sod/Tazobactam (Sod 4.5 gm/ Sodium Chloride) 100 mls @ 200 mls/hr IV ONETIME ONE Stop: 01/26/21 17:29 Last Admin: 01/26/21 16:34 Dose: 200 mls/hr Documented by: Potassium Chloride 10 meq/ (Premix) 100 mls @ 100 mls/hr IV Q1H [facility] Stop: 01/26/21 19:59 Last Admin: 01/26/21 19:50 Dose: Not Given Documented by: Potassium Chloride 10 meq/ (Premix) 100 mls @ 100 mls/hr IV Q1H [facility] Stop: 01/26/21 21:39 Last Admin: 01/26/21 19:51 Dose: Not Given Documented by: Potassium Chloride 10 meq/ (Premix) 100 mls @ 100 mls/hr IV Q1H [facility] Stop: 01/26/21 21:44 Last Admin: 01/26/21 21:36 Dose: 100 mls/hr Documented by: Potassium Chloride 10 meq/ (Premix) 100 mls @ 100 mls/hr IV Q1H [facility] Stop: 01/27/21 12:14 Last Admin: 01/27/21 15:52 Dose: Not Given Documented by: Lidocaine HCl (Xylocaine-Mpf 1%) Confirm Administered Dose 4 mls @ as directed .ROUTE .STK-MED ONE Stop: 01/27/21 08:31 Lactated Ringer's (Ringers, Lactated) Confirm Administered Dose 1,000 mls @ as directed .ROUTE .STK-MED ONE Stop: 01/27/21 08:31 Lactated Ringer's (Ringers, Lactated) Confirm Administered Dose 1,000 mls @ as directed .ROUTE .STK-MED ONE Stop: 01/27/21 12:27 Lactated Ringer's (Ringers, Lactated) Confirm Administered Dose 1,000 mls @ as directed .ROUTE .STK-MED ONE Stop: 01/27/21 14:08 Lactated Ringer's (Ringers, Lactated) Confirm Administered Dose 1,000 mls @ as directed .ROUTE .STK-MED ONE Stop: 01/27/21 16:12 Metoprolol Tartrate 5 mg/ (Sodium Chloride) 55 mls @ 100 mls/hr IV Q6H [facility] Last Admin: 01/27/21 19:58 Dose: Not Given Documented by: Pantoprazole Sodium 40 mg/ (Sodium Chloride) 100 mls @ 200 mls/hr IV DAILY [facility] Ketamine HCl (Ketamine 500 Mg/10 Ml Mdv) Confirm Administered Dose 500 mg .ROUTE .STK-MED ONE Stop: 01/27/21 11:40 Metoprolol Tartrate (Metoprolol Tartrate 5 Mg/5 Ml Sdv) Confirm Administered Dose 5 mg .ROUTE .STSEDLine-MED ONE Stop: 01/27/21 11:50 Midazolam HCl (Midazolam 1 Mg/Ml 2 Ml Sdv) Confirm Administered Dose 2 mg .ROUTE .STSEDLine-MED ONE Stop: 01/27/21 08:31 Neostigmine Methylsulfate (Neostigmine Methylsulfate 5 Mg/5 Ml Syringe) Confirm Administered Dose 5 mg .ROUTE .OmniVec-MED ONE Stop: 01/27/21 15:01 Ondansetron HCl (Ondansetron 4 Mg/2 Ml Sdv) Confirm Administered Dose 4 mg .ROUTE .STSEDLine-MED ONE Stop: 01/27/21 08:31 Ondansetron HCl (Ondansetron 4 Mg/2 Ml Sdv) 4 mg IVPUSH ONETIME PRN PRN Reason: Nausea/Vomiting Ondansetron HCl (Ondansetron 4 Mg/2 Ml Sdv) Confirm Administered Dose 4 mg .ROUTE .STSEDLine-MED ONE Stop: 01/27/21 16:40 Pantoprazole Sodium (Pantoprazole 40 Mg Vial) Confirm Administered Dose 40 mg .ROUTE .OmniVec-MED ONE Stop: 01/28/21 08:41 Last Admin: 01/28/21 09:07 Dose: Not Given Documented by: Propofol (Propofol 200 Mg/20 Ml Sdv) Confirm Administered Dose 400 mg .ROUTE .STSEDLine-MED ONE Stop: 01/27/21 08:31 Propofol (Propofol 200 Mg/20 Ml Sdv) Confirm Administered Dose 200 mg .ROUTE .STSEDLine-MED ONE Stop: 01/27/21 12:42 Propofol (Propofol 200 Mg/20 Ml Sdv) Confirm Administered Dose 200 mg .ROUTE .STSEDLine-MED ONE Stop: 01/27/21 14:18 Propofol (Propofol 200 Mg/20 Ml Sdv) Confirm Administered Dose 200 mg .ROUTE .STSEDLine-MED ONE Stop: 01/27/21 16:11 Rocuronium [place] (Rocuronium 50 Mg/5 Ml Vial) Confirm Administered Dose 50 mg .ROUTE .STK-MED ONE Stop: 01/27/21 08:31 Rocuronium [place] (Rocuronium 50 Mg/5 Ml Vial) Confirm Administered Dose 50 mg .ROUTE .STK-MED ONE Stop: 01/27/21 12:14 Rocuronium [place] (Rocuronium 50 Mg/5 Ml Vial) Confirm Administered Dose 50 mg .ROUTE .STK-MED ONE Stop: 01/27/21 14:23 - Exam Quality Assessment: Supplemental Oxygen Urinary Catheter Total Time: 0Days 12Hours General: Alert, Oriented, Cooperative Lungs: Normal Respiratory Effort, Crackles Cardiovascular: Regular Rate, Regular Rhythm, No Murmurs GI/Abdominal Exam: Soft, Distended, Tender Wound/Incisions: Dressing Dry and Intact, No Drainage - Patient Data Lab Results Last 24 hrs: Laboratory Results - last 24 hr 01/27/21 01/28/21 01/28/21 Range/Units 18:30 05:33 05:33 WBC 6.28 (4.23-9.07) K/mm3 RBC 3.46 L (4.63-6.08) M/mm3 Hgb 11.1 L (13.7-17.5) gm/dl Hct 33.1 L (40.1-51.0) % MCV 95.7 H (79.0-92.2) fl MCH 32.1 (25.7-32.2) pg MCHC 33.5 (32.2-35.5) g/dl RDW Std Deviation 44.7 H (35.1-43.9) fL Plt Count 183 (163-337) K/mm3 MPV 9.1 L (9.4-12.3) fl Neut % (Auto) 73.2 H (34.0-67.9) % Lymph % (Auto) 16.4 L (21.8-53.1) % [place] % (Auto) 9.2 (5.3-12.2) % Eos % (Auto) 0 L (0.8-7.0) Baso % (Auto) 0.2 (0.1-1.2) % Neut # (Auto) 4.60 (1.78-5.38) K/mm3 Lymph # (Auto) 1.03 L (1.32-3.57) K/mm3 [place] # (Auto) 0.58 (0.30-0.82) K/mm3 Eos # (Auto) 0.00 L (0.04-0.54) K/mm3 Baso # (Auto) 0.01 (0.01-0.08) K/mm3 Sodium 143 143 (136-145) mEq/L Potassium 4.0 3.9 (3.5-5.1) mEq/L Chloride 106 108 H (98-107) mEq/L Carbon Dioxide 24 28 (21-32) mEq/L Anion Gap 17.0 H 10.9 (5-15) BUN 19 H 16 (7-18) mg/dL Creatinine 0.9 0.8 (0.7-1.3) mg/dL Est Cr Clr Drug Dosing 68.61 77.19 mL/min Estimated GFR (MDRD) > 60 > 60 (>60) mL/min BUN/Creatinine Ratio 21.1 H 20.0 H (14-18) Glucose 166 H 139 H (70-99) mg/dL Calcium 7.8 L 7.6 L (8.5-10.1) mg/dL Phosphorus 3.4 (2.6-4.7) mg/dL Magnesium 1.5 L (1.8-2.4) mg/dL Result Diagrams: 01/28/21 05:33 01/28/21 05:33 Sepsis Event Note - Evaluation Sepsis Screening Result: No Definite Risk - Focused Exam Vital Signs: Vital Signs Temp Pulse Pulse Resp BP BP Pulse Ox 01/28/21 08:12 01/28/21 07:37 98.4 F 79 24 H 121/86 94 L 01/28/21 06:10 70 108/56 L 01/28/21 05:54 73 115/65 01/28/21 04:18 97.2 F 76 14 109/52 L 92 L 01/28/21 00:03 70 102/83 96 01/27/21 23:55 81 124/52 L 01/27/21 23:51 98.2 F 81 14 124/52 L 92 L Pulse Ox 01/28/21 08:12 93 L 01/28/21 07:37 01/28/21 06:10 01/28/21 05:54 01/28/21 04:18 01/28/21 00:03 01/27/21 23:55 01/27/21 23:51 - Problem List Review Problem List Initiated/Reviewed/Updated: No - My Orders Last 24 Hours: My Active Orders 01/27/21 16:57 Surgical Drains [Drain Management] [RC] 04,10,16,22 01/27/21 16:59 Albuterol [Proventil HFA] 0 gm INH Q6HR PRN 01/27/21 18:00 Metoprolol Tartrate [Lopressor] 5 mg IVPUSH Q6H 01/27/21 19:22 diphenhydrAMINE [Benadryl] 25 mg IVPUSH BEDTIME PRN 01/28/21 08:12 Incentive Breathing [RT Incentive Spirometry] [RC] ASDIRECTED 01/28/21 09:00 Aspirin 81 mg PO DAILY Enoxaparin [Lovenox] 30 mg SUBCUT DAILY Fluticasone Furoate [Arnuity Ellipta] 50 mcg INH DAILY Pantoprazole [ProTONIX IV] 40 mg IVPUSH DAILY 01/28/21 10:58 Magnesium Sulfate/Water [Magnesium Sulfate in Water 4 GM/50 ML] 4 gm Premix Bag 1 bag IV ONETIME 01/28/21 Lunch Clear Liquid Diet [DIET] Acetaminophen [TylenoL] 650 mg PO Q6H 01/28/21 11:02 DC Owens Catheter [Urinary Catheter Removal] [RC] PER UNIT ROUTINE 01/28/21 11:30 Dextrose 5%-1/2 Normal Saline with KCl 20 mEq @ 75 mL/Hr (1000 mL) D5 1/2 NS w/ 20 mEq/L KCl 1,000 ml IV ASDIRECTED 01/29/21 05:11 BASIC METABOLIC PANEL,BMP [CHEM] AM CBC WITH AUTO DIFF [HEME] AM MAGNESIUM [CHEM] AM PHOSPHORUS [CHEM] AM 01/30/21 05:11 BASIC METABOLIC PANEL,BMP [CHEM] AM CBC WITH AUTO DIFF [HEME] AM MAGNESIUM [CHEM] AM PHOSPHORUS [CHEM] AM 01/31/21 05:11 BASIC METABOLIC PANEL,BMP [CHEM] AM CBC WITH AUTO DIFF [HEME] AM MAGNESIUM [CHEM] AM PHOSPHORUS [CHEM] AM - Assessment Assessment:: POD1, right hemicolectomy for colonic perforation and abscess. Patient WBC is normal today, this is unexpected given intraabdominal infection and surgery. - Plan Plan:: - Sips of clears as tolerated today - IVF to d5 1/2 ns with 20 kcl at 75 cc/hr - pain control today - ambulate TID - PT to help with ambulation - Incentive spirometer - Rep[facility] today - colin wang
[2021-01-28] MEDS: Acetaminophen 325 MG Tab PO SCH ×2 (12:24→18:09)
[2021-01-28] MEDS: D5 1/2 NS w/ 20 mEq/L KCl 1,000 ML IV SCH (20:23)
[2021-01-29] MEDS: Acetaminophen 325 MG Tab PO SCH ×4 (01:09→17:45)
[2021-01-29] MEDS: Metoprolol Tartrate 5 MG/5 ML SDV IVPUSH SCH ×4 (01:10→17:45)
[2021-01-29] MEDS: Piperacillin/Tazobactam 4.5 GM in Sodium Chloride 0.9% 100 ML IV SCH ×3 (01:11→16:37)
[2021-01-29] MEDS: HYDROmorphone 0.5 MG/0.5 ML Syringe IVPUSH PRN ×5 (06:45→20:55)
[2021-01-29] MEDS ORDERED: Diltiazem 120 MG Cap.CD PO ONE (09:00)
[2021-01-29] MEDS: Pantoprazole 40 MG Vial IVPUSH SCH (09:29)
[2021-01-29] MEDS: Enoxaparin 30 MG/0.3 ML Syringe SUBCUT SCH (09:29)
[2021-01-29] MEDS: Aspirin 81 MG Tab.Chew PO SCH (09:29)
[2021-01-29] MEDS: oxyCODONE 5 MG Tab PO PRN ×2 (09:30→20:55)
[2021-01-29] MEDS: D5 1/2 NS w/ 20 mEq/L KCl 1,000 ML IV SCH (09:30)
[2021-01-29] MEDS ORDERED: D5 1/2 NS w/ 20 mEq/L KCl 1,000 ML IV SCH (10:00)
[2021-01-29] MEDS ORDERED: D5 1/2 NS w/ 10 mEq/L KCl 1,000 ML IV SCH (10:00)
--- NOTE | 2021-01-29 15:50 | PCM.PN ---
- General Info Date of Service: 01/29/21 Admission Dx/Problem (Free Text): Admission Diagnosis/Problem Admission Diagnosis/Problem Abscess Subjective Update: feeling weak, no nausea or vomiting. still has pain. was able to ambulate yesterday. still needing supplemental oxygen Functional Status: Reports: Pain Controlled, Tolerating Diet (clears), Ambulating, Urinating - Review of Systems General: Reports: No Symptoms HEENT: Reports: No Symptoms Pulmonary: Reports: No Symptoms Cardiovascular: Reports: No Symptoms Gastrointestinal: Reports: Abdominal Pain (post op) Genitourinary: Reports: No Symptoms Musculoskeletal: Reports: No Symptoms Skin: Reports: No Symptoms Neurological: Reports: No Symptoms Psychiatric: Reports: No Symptoms - Patient Data Vitals - Most Recent: Last Vital Signs Temp 98.2 F 01/29/21 11:14 Pulse 84 01/29/21 11:16 Resp 16 01/29/21 11:14 BP 139/72 01/29/21 11:16 Pulse Ox 92 L 01/29/21 11:14 Weight - Most Recent: 98.339 kg I&O - Last 24 Hours: Intake & Output 01/29/21 01/29/21 01/29/21 06:59 14:59 22:59 Intake Total 1975 60 Output Total 85 Balance 114A 60 Lab Results Last 24 Hours: Laboratory Results - last 24 hr 01/29/21 01/29/21 Range/Units 05:11 06:00 WBC 7.90 (4.23-9.07) K/mm3 RBC 3.50 L (4.63-6.08) M/mm3 Hgb 11.1 L (13.7-17.5) gm/dl Hct 33.7 L (40.1-51.0) % MCV 96.3 H (79.0-92.2) fl MCH 31.7 (25.7-32.2) pg MCHC 32.9 (32.2-35.5) g/dl RDW Std Deviation 44.7 H (35.1-43.9) fL Plt Count 186 (163-337) K/mm3 MPV 8.7 L (9.4-12.3) fl Neut % (Auto) 75.8 H (34.0-67.9) % Lymph % (Auto) 12.9 L (21.8-53.1) % [place] % (Auto) 6.1 (5.3-12.2) % Eos % (Auto) 2.9 (0.8-7.0) Baso % (Auto) 0.4 (0.1-1.2) % Neut # (Auto) 5.99 H (1.78-5.38) K/mm3 Lymph # (Auto) 1.02 L (1.32-3.57) K/mm3 [place] # (Auto) 0.48 (0.30-0.82) K/mm3 Eos # (Auto) 0.23 (0.04-0.54) K/mm3 Baso # (Auto) 0.03 (0.01-0.08) K/mm3 Manual Slide Review Not Reportable Sodium 142 (136-145) mEq/L Potassium 3.8 (3.5-5.1) mEq/L Chloride 105 (98-107) mEq/L Carbon Dioxide 30 (21-32) mEq/L Anion Gap 10.8 (5-15) BUN 12 (7-18) mg/dL Creatinine 0.9 (0.7-1.3) mg/dL Est Cr Clr Drug Dosing 68.61 mL/min Estimated GFR (MDRD) > 60 (>60) mL/min BUN/Creatinine Ratio 13.3 L (14-18) Glucose 141 H (70-99) mg/dL Calcium 7.7 L (8.5-10.1) mg/dL Phosphorus 2.8 (2.6-4.7) mg/dL Magnesium 1.9 (1.8-2.4) mg/dL Med Orders - Current: Current Medications Acetaminophen (Acetaminophen 325 Mg Tab) 650 mg PO Q6H [facility] Last Admin: 01/29/21 11:16 Dose: 650 mg Documented by: Albuterol (Albuterol 6.7 Gm Inhaler) 0 gm INH Q6HR PRN PRN Reason: Shortness of Breath Aspirin (Aspirin 81 Mg Tab.Chew) 81 mg PO DAILY [facility] Last Admin: 01/29/21 09:29 Dose: 81 mg Documented by: Diphenhydramine HCl (Diphenhydramine 50 Mg/Ml Sdv) 25 mg IVPUSH BEDTIME PRN PRN Reason: Sleep Enoxaparin Sodium (Enoxaparin 40 Mg/0.4 Ml Syringe) 40 mg SUBCUT DAILY [facility] Hydromorphone HCl (Hydromorphone 0.5 Mg/0.5 Ml Syringe) 0.5 mg IVPUSH Q3H PRN PRN Reason: Pain (severe 7-10) Last Admin: 01/29/21 14:25 Dose: 0.5 mg Documented by: Piperacillin Sod/Tazobactam (Sod 4.5 gm/ Sodium Chloride) 100 mls @ 25 mls/hr IV Q8H [facility] Last Admin: 01/29/21 09:29 Dose: 25 mls/hr Documented by: Potassium Chloride/Dextrose/Sod Cl (D5 1/2 Ns W/ 20 Meq/L Kcl) 1,000 mls @ 50 mls/hr IV ASDIRECTED [facility] Metoprolol Tartrate (Metoprolol Tartrate 5 Mg/5 Ml Sdv) 5 mg IVPUSH Q6H [facility] Last Admin: 01/29/21 11:16 Dose: 5 mg Documented by: Fluticasone Furoate [Arnuity Ellipta] 50mcg Inh 50 mcg INH DAILY [facility] Ondansetron HCl (Ondansetron 4 Mg Tab.Dis) 4 mg PO Q4H PRN PRN Reason: nausea, able to take PO Ondansetron HCl (Ondansetron 4 Mg/2 Ml Sdv) 4 mg IV Q4H PRN PRN Reason: Nausea/Vomiting Oxycodone HCl (Oxycodone 5 Mg Tab) 5 mg PO Q4H PRN PRN Reason: Pain (moderate 4-6) Last Admin: 01/29/21 09:30 Dose: 5 mg Documented by: Pantoprazole Sodium (Pantoprazole 40 Mg Vial) 40 mg IVPUSH DAILY [facility] Last Admin: 01/29/21 09:29 Dose: 40 mg Documented by: Sodium Chloride (Sodium Chloride 0.9% 10 Ml Syringe) 10 ml FLUSH ASDIRECTED PRN PRN Reason: Keep Vein Open Discontinued Medications Acetaminophen (Acetaminophen 325 Mg Tab) 650 mg PO Q4H PRN PRN Reason: Pain (Mild 1-3)/fever Acetaminophen (Acetaminophen 325 Mg Tab) 650 mg PO Q6H [facility] Last Admin: 01/29/21 01:09 Dose: 650 mg Documented by: Albuterol (Albuterol 0.083% 2.5 Mg/3 Ml Neb Soln) 2.5 mg NEB ONETIME ONE Stop: 01/27/21 08:16 Last Admin: 01/27/21 08:21 Dose: 2.5 mg Documented by: Bupivacaine HCl/Epinephrine Bitart (Bupivacaine 0.5%/Epinephrine 1:200,000 50 Ml Mdv) Confirm Administered Dose 100 ml .ROUTE .STK-MED ONE Stop: 01/27/21 09:48 Last Admin: 01/27/21 11:27 Dose: 30 ml Documented by: Dexamethasone (Dexamethasone 4 Mg/Ml 5 Ml Mdv) Confirm Administered Dose 20 mg .ROUTE .STK-MED ONE Stop: 01/27/21 08:34 Enoxaparin Sodium (Enoxaparin 30 Mg/0.3 Ml Syringe) 30 mg SUBCUT DAILY [facility] Last Admin: 01/29/21 09:29 Dose: 30 mg Documented by: Fentanyl (Fentanyl 250 Mcg/5 Ml Sdv) Confirm Administered Dose 250 mcg .ROUTE .STK-MED ONE Stop: 01/27/21 08:31 Fentanyl (Fentanyl 100 Mcg/2 Ml Sdv) Confirm Administered Dose 100 mcg .ROUTE .STK-MED ONE Stop: 01/27/21 14:39 Fentanyl (Fentanyl 100 Mcg/2 Ml Sdv) 50 mcg IVPUSH Q5M PRN PRN Reason: Pain Fentanyl (Fentanyl 100 Mcg/2 Ml Sdv) Confirm Administered Dose 100 mcg .ROUTE .STK-MED ONE Stop: 01/27/21 16:41 Glycopyrrolate (Glycopyrrolate 0.2 Mg/Ml Sdv) Confirm Administered Dose 0.4 mg .ROUTE .STK-MED ONE Stop: 01/27/21 15:01 Hydromorphone HCl (Hydromorphone 0.5 Mg/0.5 Ml Syringe) 0.5 mg IVPUSH Q10M PRN PRN Reason: Pain (severe 7-10) Hydromorphone HCl (Hydromorphone 0.5 Mg/0.5 Ml Syringe) Confirm Administered Dose 0.5 mg .ROUTE .STK-MED ONE Stop: 01/27/21 16:08 Lactated Ringer's (Ringers, Lactated) 1,000 mls @ 999 mls/hr IV .BOLUS ONE Stop: 01/26/21 16:45 Last Admin: 01/26/21 16:12 Dose: 999 mls/hr Documented by: Lactated Ringer's (Ringers, Lactated) 1,000 mls @ 125 mls/hr IV ASDIRECTED [facility] Last Admin: 01/28/21 10:00 Dose: 125 mls/hr Documented by: Piperacillin Sod/Tazobactam (Sod 4.5 gm/ Sodium Chloride) 100 mls @ 200 mls/hr IV ONETIME ONE Stop: 01/26/21 17:29 Last Admin: 01/26/21 16:34 Dose: 200 mls/hr Documented by: Potassium Chloride 10 meq/ (Premix) 100 mls @ 100 mls/hr IV Q1H [facility] Stop: 01/26/21 19:59 Last Admin: 01/26/21 19:50 Dose: Not Given Documented by: Potassium Chloride 10 meq/ (Premix) 100 mls @ 100 mls/hr IV Q1H [facility] Stop: 01/26/21 21:39 Last Admin: 01/26/21 19:51 Dose: Not Given Documented by: Potassium Chloride 10 meq/ (Premix) 100 mls @ 100 mls/hr IV Q1H [facility] Stop: 01/26/21 21:44 Last Admin: 01/26/21 21:36 Dose: 100 mls/hr Documented by: Potassium Chloride 10 meq/ (Premix) 100 mls @ 100 mls/hr IV Q1H [facility] Stop: 01/27/21 12:14 Last Admin: 01/27/21 15:52 Dose: Not Given Documented by: Lidocaine HCl (Xylocaine-Mpf 1%) Confirm Administered Dose 4 mls @ as directed .ROUTE .STK-MED ONE Stop: 01/27/21 08:31 Lactated Ringer's (Ringers, Lactated) Confirm Administered Dose 1,000 mls @ as directed .ROUTE .STK-MED ONE Stop: 01/27/21 08:31 Lactated Ringer's (Ringers, Lactated) Confirm Administered Dose 1,000 mls @ as directed .ROUTE .STK-MED ONE Stop: 01/27/21 12:27 Lactated Ringer's (Ringers, Lactated) Confirm Administered Dose 1,000 mls @ as directed .ROUTE .STK-MED ONE Stop: 01/27/21 14:08 Lactated Ringer's (Ringers, Lactated) Confirm Administered Dose 1,000 mls @ as directed .ROUTE .STK-MED ONE Stop: 01/27/21 16:12 Metoprolol Tartrate 5 mg/ (Sodium Chloride) 55 mls @ 100 mls/hr IV Q6H [facility] Last Admin: 01/27/21 19:58 Dose: Not Given Documented by: Pantoprazole Sodium 40 mg/ (Sodium Chloride) 100 mls @ 200 mls/hr IV DAILY [facility] Magnesium Sulfate 4 gm/ Premix 50 mls @ 12.5 mls/hr IV ONETIME ONE Stop: 01/28/21 14:57 Last Admin: 01/28/21 12:21 Dose: 12.5 mls/hr Documented by: Potassium Chloride/Dextrose/Sod Cl (D5 1/2 Ns W/ 20 Meq/L Kcl) 1,000 mls @ 75 mls/hr IV ASDIRECTED [facility] Last Admin: 01/29/21 09:30 Dose: 75 mls/hr Documented by: Ketamine HCl (Ketamine 500 Mg/10 Ml Mdv) Confirm Administered Dose 500 mg .ROUTE .STK-MED ONE Stop: 01/27/21 11:40 Metoprolol Tartrate (Metoprolol Tartrate 5 Mg/5 Ml Sdv) Confirm Administered Dose 5 mg .ROUTE .STK-MED ONE Stop: 01/27/21 11:50 Midazolam HCl (Midazolam 1 Mg/Ml 2 Ml Sdv) Confirm Administered Dose 2 mg .ROUTE .STK-MED ONE Stop: 01/27/21 08:31 Neostigmine Methylsulfate (Neostigmine Methylsulfate 5 Mg/5 Ml Syringe) Confirm Administered Dose 5 mg .ROUTE .STK-MED ONE Stop: 01/27/21 15:01 Ondansetron HCl (Ondansetron 4 Mg/2 Ml Sdv) Confirm Administered Dose 4 mg .ROUTE .STK-MED ONE Stop: 01/27/21 08:31 Ondansetron HCl (Ondansetron 4 Mg/2 Ml Sdv) 4 mg IVPUSH ONETIME PRN PRN Reason: Nausea/Vomiting Ondansetron HCl (Ondansetron 4 Mg/2 Ml Sdv) Confirm Administered Dose 4 mg .ROUTE .STK-MED ONE Stop: 01/27/21 16:40 Pantoprazole Sodium (Pantoprazole 40 Mg Vial) Confirm Administered Dose 40 mg .ROUTE .STK-MED ONE Stop: 01/28/21 08:41 Last Admin: 01/28/21 09:07 Dose: Not Given Documented by: Propofol (Propofol 200 Mg/20 Ml Sdv) Confirm Administered Dose 400 mg .ROUTE .STK-MED ONE Stop: 01/27/21 08:31 Propofol (Propofol 200 Mg/20 Ml Sdv) Confirm Administered Dose 200 mg .ROUTE .STK-MED ONE Stop: 01/27/21 12:42 Propofol (Propofol 200 Mg/20 Ml Sdv) Confirm Administered Dose 200 mg .ROUTE .STK-MED ONE Stop: 01/27/21 14:18 Propofol (Propofol 200 Mg/20 Ml Sdv) Confirm Administered Dose 200 mg .ROUTE .STK-MED ONE Stop: 01/27/21 16:11 Rocuronium [place] (Rocuronium 50 Mg/5 Ml Vial) Confirm Administered Dose 50 mg .ROUTE .STK-MED ONE Stop: 01/27/21 08:31 Rocuronium [place] (Rocuronium 50 Mg/5 Ml Vial) Confirm Administered Dose 50 mg .ROUTE .STK-MED ONE Stop: 01/27/21 12:14 Rocuronium [place] (Rocuronium 50 Mg/5 Ml Vial) Confirm Administered Dose 50 mg .ROUTE .STK-MED ONE Stop: 01/27/21 14:23 - Exam Quality Assessment: Supplemental Oxygen Urinary Catheter Total Time: 1Days 21Hours General: Alert, Oriented, Cooperative Neck: Supple Lungs: Normal Respiratory Effort Cardiovascular: Regular Rate, Regular Rhythm, No Murmurs GI/Abdominal Exam: Soft, Distended, Tender - Patient Data Lab Results Last 24 hrs: Laboratory Results - last 24 hr 01/29/21 01/29/21 Range/Units 05:11 06:00 WBC 7.90 (4.23-9.07) K/mm3 RBC 3.50 L (4.63-6.08) M/mm3 Hgb 11.1 L (13.7-17.5) gm/dl Hct 33.7 L (40.1-51.0) % MCV 96.3 H (79.0-92.2) fl MCH 31.7 (25.7-32.2) pg MCHC 32.9 (32.2-35.5) g/dl RDW Std Deviation 44.7 H (35.1-43.9) fL Plt Count 186 (163-337) K/mm3 MPV 8.7 L (9.4-12.3) fl Neut % (Auto) 75.8 H (34.0-67.9) % Lymph % (Auto) 12.9 L (21.8-53.1) % [place] % (Auto) 6.1 (5.3-12.2) % Eos % (Auto) 2.9 (0.8-7.0) Baso % (Auto) 0.4 (0.1-1.2) % Neut # (Auto) 5.99 H (1.78-5.38) K/mm3 Lymph # (Auto) 1.02 L (1.32-3.57) K/mm3 [place] # (Auto) 0.48 (0.30-0.82) K/mm3 Eos # (Auto) 0.23 (0.04-0.54) K/mm3 Baso # (Auto) 0.03 (0.01-0.08) K/mm3 Manual Slide Review Not Reportable Sodium 142 (136-145) mEq/L Potassium 3.8 (3.5-5.1) mEq/L Chloride 105 (98-107) mEq/L Carbon Dioxide 30 (21-32) mEq/L Anion Gap 10.8 (5-15) BUN 12 (7-18) mg/dL Creatinine 0.9 (0.7-1.3) mg/dL Est Cr Clr Drug Dosing 68.61 mL/min Estimated GFR (MDRD) > 60 (>60) mL/min BUN/Creatinine Ratio 13.3 L (14-18) Glucose 141 H (70-99) mg/dL Calcium 7.7 L (8.5-10.1) mg/dL Phosphorus 2.8 (2.6-4.7) mg/dL Magnesium 1.9 (1.8-2.4) mg/dL Result Diagrams: 01/29/21 06:00 01/29/21 05:11 Sepsis Event Note - Evaluation Sepsis Screening Result: No Definite Risk - Focused Exam Vital Signs: Vital Signs Temp Pulse Resp BP Pulse Ox Pulse Ox 01/29/21 11:16 84 139/72 01/29/21 11:14 98.2 F 84 16 139/72 92 L 01/29/21 09:43 94 L 01/29/21 07:27 98.4 F 80 20 132/54 L 94 L 01/29/21 06:00 76 138/63 95 01/29/21 05:49 98.8 F 87 15 135/66 93 L - Problem List Review Problem List Initiated/Reviewed/Updated: No - My Orders Last 24 Hours: My Active Orders 01/28/21 15:32 Renew/Continue Urinary Catheter [OM.PC] Routine 01/28/21 19:30 Communication Order [RC] DAILY 01/29/21 06:00 Acetaminophen [TylenoL] 650 mg PO Q6H 01/29/21 10:00 D5 1/2 NS w/ 20 mEq/L KCl 1,000 ml IV ASDIRECTED 01/30/21 05:11 BASIC METABOLIC PANEL,BMP [CHEM] AM CBC WITH AUTO DIFF [HEME] AM MAGNESIUM [CHEM] AM PHOSPHORUS [CHEM] AM 01/30/21 09:00 Enoxaparin [Lovenox] 40 mg SUBCUT DAILY 01/31/21 05:11 BASIC METABOLIC PANEL,BMP [CHEM] AM CBC WITH AUTO DIFF [HEME] AM MAGNESIUM [CHEM] AM PHOSPHORUS [CHEM] AM - Assessment Assessment:: POD2, right hemicolectomy for colonic perforation and abscess. Stable. - Plan Plan:: - Continue clears today - DC wagner - IVF to 50 - Labs are good. COntinue daily labs - Continue ambulation and incentive spirometer - Awaiting return of bowel function
[2021-01-29] MEDS ORDERED: Piperacillin/Tazobactam 4.5 GM AdvVial ONE (16:32)
[2021-01-30] MEDS: Metoprolol Tartrate 5 MG/5 ML SDV IVPUSH SCH ×3 (00:13→12:30)
[2021-01-30] MEDS: Acetaminophen 325 MG Tab PO SCH ×4 (00:23→17:40)
[2021-01-30] MEDS: HYDROmorphone 0.5 MG/0.5 ML Syringe IVPUSH PRN ×5 (00:24→21:30)
[2021-01-30] MEDS: Piperacillin/Tazobactam 4.5 GM in Sodium Chloride 0.9% 100 ML IV SCH ×3 (00:29→17:41)
[2021-01-30] MEDS: oxyCODONE 5 MG Tab PO PRN ×4 (08:11→21:28)
[2021-01-30] MEDS: Enoxaparin 40 MG/0.4 ML Syringe SUBCUT SCH (08:11)
[2021-01-30] MEDS: Pantoprazole 40 MG Vial IVPUSH SCH (08:11)
[2021-01-30] MEDS: Aspirin 81 MG Tab.Chew PO SCH (08:12)
[2021-01-30] MEDS: Fluticasone Propionate Nasal Spray 16 GM Bottle NASBOTH SCH (08:12)
[2021-01-30] MEDS: Polyethylene Glycol 3350 Powder 17 GM Packet PO SCH (08:13)
--- NOTE | 2021-01-30 15:59 | PCM.PN ---
- General Info Date of Service: 01/30/21 Admission Dx/Problem (Free Text): Admission Diagnosis/Problem Admission Diagnosis/Problem Abscess Subjective Update: No major issues overnight. Continues to ambulate, uses incentive spirometer, no other problems. Functional Status: Reports: Pain Controlled, Tolerating Diet, Ambulating, Urinating - Review of Systems General: Reports: No Symptoms HEENT: Reports: No Symptoms Pulmonary: Reports: No Symptoms Cardiovascular: Reports: No Symptoms Gastrointestinal: Reports: Abdominal Pain (post op) Genitourinary: Reports: No Symptoms Musculoskeletal: Reports: No Symptoms Skin: Reports: No Symptoms - Patient Data Vitals - Most Recent: Last Vital Signs Temp 98.1 F 01/30/21 11:25 Pulse 81 01/30/21 12:30 Resp 16 01/30/21 11:25 BP 118/56 L 01/30/21 12:30 Pulse Ox 94 L 01/30/21 11:25 Weight - Most Recent: 102.512 kg I&O - Last 24 Hours: Intake & Output 01/30/21 01/30/21 01/30/21 06:59 14:59 22:59 Intake Total 1180 60 Output Total 850 Balance 330 60 Lab Results Last 24 Hours: Laboratory Results - last 24 hr 01/30/21 01/30/21 Range/Units 05:46 05:46 WBC 8.01 (4.23-9.07) K/mm3 RBC 3.18 L (4.63-6.08) M/mm3 Hgb 9.9 L (13.7-17.5) gm/dl Hct 30.7 L (40.1-51.0) % MCV 96.5 H (79.0-92.2) fl MCH 31.1 (25.7-32.2) pg MCHC 32.2 (32.2-35.5) g/dl RDW Std Deviation 45.0 H (35.1-43.9) fL Plt Count 196 (163-337) K/mm3 MPV 8.8 L (9.4-12.3) fl Neut % (Auto) 76.6 H (34.0-67.9) % Lymph % (Auto) 14.6 L (21.8-53.1) % [place] % (Auto) 4.9 L (5.3-12.2) % Eos % (Auto) 2.5 (0.8-7.0) Baso % (Auto) 0.2 (0.1-1.2) % Neut # (Auto) 6.13 H (1.78-5.38) K/mm3 Lymph # (Auto) 1.17 L (1.32-3.57) K/mm3 [place] # (Auto) 0.39 (0.30-0.82) K/mm3 Eos # (Auto) 0.20 (0.04-0.54) K/mm3 Baso # (Auto) 0.02 (0.01-0.08) K/mm3 Manual Slide Review Normal smear Sodium 142 (136-145) mEq/L Potassium 3.6 (3.5-5.1) mEq/L Chloride 106 (98-107) mEq/L Carbon Dioxide 30 (21-32) mEq/L Anion Gap 9.6 (5-15) BUN 10 (7-18) mg/dL Creatinine 0.9 (0.7-1.3) mg/dL Est Cr Clr Drug Dosing 68.61 mL/min Estimated GFR (MDRD) > 60 (>60) mL/min BUN/Creatinine Ratio 11.1 L (14-18) Glucose 125 H (70-99) mg/dL Calcium 7.4 L (8.5-10.1) mg/dL Phosphorus 2.6 (2.6-4.7) mg/dL Magnesium 1.8 (1.8-2.4) mg/dL Med Orders - Current: Current Medications Acetaminophen (Acetaminophen 325 Mg Tab) 650 mg PO Q6H [facility] Last Admin: 01/30/21 12:28 Dose: 650 mg Documented by: Albuterol (Albuterol 6.7 Gm Inhaler) 0 gm INH Q6HR PRN PRN Reason: Shortness of Breath Aspirin (Aspirin 81 Mg Tab.Chew) 81 mg PO DAILY [facility] Last Admin: 01/30/21 08:12 Dose: 81 mg Documented by: Diphenhydramine HCl (Diphenhydramine 50 Mg/Ml Sdv) 25 mg IVPUSH BEDTIME PRN PRN Reason: Sleep Enoxaparin Sodium (Enoxaparin 40 Mg/0.4 Ml Syringe) 40 mg SUBCUT DAILY [facility] Last Admin: 01/30/21 08:11 Dose: 40 mg Documented by: Fluticasone Propionate (Fluticasone Propionate Nasal [place] 16 Gm Bottle) 0 gm NASBOTH DAILY [facility] Last Admin: 01/30/21 08:12 Dose: 1 spray Documented by: Hydromorphone HCl (Hydromorphone 0.5 Mg/0.5 Ml Syringe) 0.5 mg IVPUSH Q3H PRN PRN Reason: Pain (severe 7-10) Last Admin: 01/30/21 14:09 Dose: 0.5 mg Documented by: Piperacillin Sod/Tazobactam (Sod 4.5 gm/ Sodium Chloride) 100 mls @ 25 mls/hr IV Q8H [facility] Last Admin: 01/30/21 07:59 Dose: 25 mls/hr Documented by: Metoprolol Tartrate (Metoprolol Tartrate 5 Mg/5 Ml Sdv) 5 mg IVPUSH Q6H [facility] Last Admin: 01/30/21 12:30 Dose: 5 mg Documented by: Ondansetron HCl (Ondansetron 4 Mg Tab.Dis) 4 mg PO Q4H PRN PRN Reason: nausea, able to take PO Ondansetron HCl (Ondansetron 4 Mg/2 Ml Sdv) 4 mg IV Q4H PRN PRN Reason: Nausea/Vomiting Oxycodone HCl (Oxycodone 5 Mg Tab) 5 mg PO Q4H PRN PRN Reason: Pain (moderate 4-6) Last Admin: 01/30/21 12:28 Dose: 5 mg Documented by: Pantoprazole Sodium (Pantoprazole 40 Mg Vial) 40 mg IVPUSH DAILY [facility] Last Admin: 01/30/21 08:11 Dose: 40 mg Documented by: Polyethylene Glycol (Polyethylene Glycol 3350 Powder 17 Gm Packet) 17 gm PO DAILY [facility] Last Admin: 01/30/21 08:13 Dose: 17 gm Documented by: Sodium Chloride (Sodium Chloride 0.9% 10 Ml Syringe) 10 ml FLUSH ASDIRECTED PRN PRN Reason: Keep Vein Open Discontinued Medications Acetaminophen (Acetaminophen 325 Mg Tab) 650 mg PO Q4H PRN PRN Reason: Pain (Mild 1-3)/fever Acetaminophen (Acetaminophen 325 Mg Tab) 650 mg PO Q6H [facility] Last Admin: 01/29/21 01:09 Dose: 650 mg Documented by: Albuterol (Albuterol 0.083% 2.5 Mg/3 Ml Neb Soln) 2.5 mg NEB ONETIME ONE Stop: 01/27/21 08:16 Last Admin: 01/27/21 08:21 Dose: 2.5 mg Documented by: Bupivacaine HCl/Epinephrine Bitart (Bupivacaine 0.5%/Epinephrine 1:200,000 50 Ml Mdv) Confirm Administered Dose 100 ml .ROUTE .STK-MED ONE Stop: 01/27/21 09:48 Last Admin: 01/27/21 11:27 Dose: 30 ml Documented by: Dexamethasone (Dexamethasone 4 Mg/Ml 5 Ml Mdv) Confirm Administered Dose 20 mg .ROUTE .STK-MED ONE Stop: 01/27/21 08:34 Enoxaparin Sodium (Enoxaparin 30 Mg/0.3 Ml Syringe) 30 mg SUBCUT DAILY [place] Last Admin: 01/29/21 09:29 Dose: 30 mg Documented by: Fentanyl (Fentanyl 250 Mcg/5 Ml Sdv) Confirm Administered Dose 250 mcg .ROUTE .STK-MED ONE Stop: 01/27/21 08:31 Fentanyl (Fentanyl 100 Mcg/2 Ml Sdv) Confirm Administered Dose 100 mcg .ROUTE .STK-MED ONE Stop: 01/27/21 14:39 Fentanyl (Fentanyl 100 Mcg/2 Ml Sdv) 50 mcg IVPUSH Q5M PRN PRN Reason: Pain Fentanyl (Fentanyl 100 Mcg/2 Ml Sdv) Confirm Administered Dose 100 mcg .ROUTE .STK-MED ONE Stop: 01/27/21 16:41 Glycopyrrolate (Glycopyrrolate 0.2 Mg/Ml Sdv) Confirm Administered Dose 0.4 mg .ROUTE .STK-MED ONE Stop: 01/27/21 15:01 Hydromorphone HCl (Hydromorphone 0.5 Mg/0.5 Ml Syringe) 0.5 mg IVPUSH Q10M PRN PRN Reason: Pain (severe 7-10) Hydromorphone HCl (Hydromorphone 0.5 Mg/0.5 Ml Syringe) Confirm Administered Dose 0.5 mg .ROUTE .STK-MED ONE Stop: 01/27/21 16:08 Lactated Ringer's (Ringers, Lactated) 1,000 mls @ 999 mls/hr IV .BOLUS ONE Stop: 01/26/21 16:45 Last Admin: 01/26/21 16:12 Dose: 999 mls/hr Documented by: Lactated Ringer's (Ringers, Lactated) 1,000 mls @ 125 mls/hr IV ASDIRECTED [facility] Last Admin: 01/28/21 10:00 Dose: 125 mls/hr Documented by: Piperacillin Sod/Tazobactam (Sod 4.5 gm/ Sodium Chloride) 100 mls @ 200 mls/hr IV ONETIME ONE Stop: 01/26/21 17:29 Last Admin: 01/26/21 16:34 Dose: 200 mls/hr Documented by: Potassium Chloride 10 meq/ (Premix) 100 mls @ 100 mls/hr IV Q1H [facility] Stop: 01/26/21 19:59 Last Admin: 01/26/21 19:50 Dose: Not Given Documented by: Potassium Chloride 10 meq/ (Premix) 100 mls @ 100 mls/hr IV Q1H [facility] Stop: 01/26/21 21:39 Last Admin: 01/26/21 19:51 Dose: Not Given Documented by: Potassium Chloride 10 meq/ (Premix) 100 mls @ 100 mls/hr IV Q1H [facility] Stop: 01/26/21 21:44 Last Admin: 01/26/21 21:36 Dose: 100 mls/hr Documented by: Potassium Chloride 10 meq/ (Premix) 100 mls @ 100 mls/hr IV Q1H [facility] Stop: 01/27/21 12:14 Last Admin: 01/27/21 15:52 Dose: Not Given Documented by: Lidocaine HCl (Xylocaine-Mpf 1%) Confirm Administered Dose 4 mls @ as directed .ROUTE .STK-MED ONE Stop: 01/27/21 08:31 Lactated Ringer's (Ringers, Lactated) Confirm Administered Dose 1,000 mls @ as directed .ROUTE .STK-MED ONE Stop: 01/27/21 08:31 Lactated Ringer's (Ringers, Lactated) Confirm Administered Dose 1,000 mls @ as directed .ROUTE .STK-MED ONE Stop: 01/27/21 12:27 Lactated Ringer's (Ringers, Lactated) Confirm Administered Dose 1,000 mls @ as directed .ROUTE .STK-MED ONE Stop: 01/27/21 14:08 Lactated Ringer's (Ringers, Lactated) Confirm Administered Dose 1,000 mls @ as directed .ROUTE .[facility] ONE Stop: 01/27/21 16:12 Metoprolol Tartrate 5 mg/ (Sodium Chloride) 55 mls @ 100 mls/hr IV Q6H [facility] Last Admin: 01/27/21 19:58 Dose: Not Given Documented by: Pantoprazole Sodium 40 mg/ (Sodium Chloride) 100 mls @ 200 mls/hr IV DAILY [facility] Magnesium Sulfate 4 gm/ Premix 50 mls @ 12.5 mls/hr IV ONETIME ONE Stop: 01/28/21 14:57 Last Admin: 01/28/21 12:21 Dose: 12.5 mls/hr Documented by: Potassium Chloride/Dextrose/Sod Cl (D5 1/2 Ns W/ 20 Meq/L Kcl) 1,000 mls @ 75 mls/hr IV ASDIRECTED [facility] Last Admin: 01/29/21 09:30 Dose: 75 mls/hr Documented by: Potassium Chloride/Dextrose/Sod Cl (D5 1/2 Ns W/ 20 Meq/L Kcl) 1,000 mls @ 50 mls/hr IV ASDIRECTED [facility] Last Admin: 01/30/21 06:16 Dose: 50 mls/hr Documented by: Ketamine HCl (Ketamine 500 Mg/10 Ml Mdv) Confirm Administered Dose 500 mg .ROUTE .[facility] ONE Stop: 01/27/21 11:40 Metoprolol Tartrate (Metoprolol Tartrate 5 Mg/5 Ml Sdv) Confirm Administered Dose 5 mg .ROUTE .[facility] ONE Stop: 01/27/21 11:50 Midazolam HCl (Midazolam 1 Mg/Ml 2 Ml Sdv) Confirm Administered Dose 2 mg .ROUTE .[facility] ONE Stop: 01/27/21 08:31 Neostigmine Methylsulfate (Neostigmine Methylsulfate 5 Mg/5 Ml Syringe) Confirm Administered Dose 5 mg .ROUTE .[facility] ONE Stop: 01/27/21 15:01 Ondansetron HCl (Ondansetron 4 Mg/2 Ml Sdv) Confirm Administered Dose 4 mg .ROUTE .[facility] ONE Stop: 01/27/21 08:31 Ondansetron HCl (Ondansetron 4 Mg/2 Ml Sdv) 4 mg IVPUSH ONETIME PRN PRN Reason: Nausea/Vomiting Ondansetron HCl (Ondansetron 4 Mg/2 Ml Sdv) Confirm Administered Dose 4 mg .ROUTE .STK-MED ONE Stop: 01/27/21 16:40 Pantoprazole Sodium (Pantoprazole 40 Mg Vial) Confirm Administered Dose 40 mg .ROUTE .STK-MED ONE Stop: 01/28/21 08:41 Last Admin: 01/28/21 09:07 Dose: Not Given Documented by: Piperacillin Sod/Tazobactam Sod (Piperacillin/Tazobactam 4.5 Gm Advvial) Confirm Administered Dose 4.5 gm .ROUTE .STK-MED ONE Stop: 01/29/21 16:33 Last Admin: 01/29/21 16:40 Dose: Not Given Documented by: Propofol (Propofol 200 Mg/20 Ml Sdv) Confirm Administered Dose 400 mg .ROUTE .STK-MED ONE Stop: 01/27/21 08:31 Propofol (Propofol 200 Mg/20 Ml Sdv) Confirm Administered Dose 200 mg .ROUTE .STK-MED ONE Stop: 01/27/21 12:42 Propofol (Propofol 200 Mg/20 Ml Sdv) Confirm Administered Dose 200 mg .ROUTE .STK-MED ONE Stop: 01/27/21 14:18 Propofol (Propofol 200 Mg/20 Ml Sdv) Confirm Administered Dose 200 mg .ROUTE .STK-MED ONE Stop: 01/27/21 16:11 Rocuronium [place] (Rocuronium 50 Mg/5 Ml Vial) Confirm Administered Dose 50 mg .ROUTE .STK-MED ONE Stop: 01/27/21 08:31 Rocuronium [place] (Rocuronium 50 Mg/5 Ml Vial) Confirm Administered Dose 50 mg .ROUTE .STK-MED ONE Stop: 01/27/21 12:14 Rocuronium [place] (Rocuronium 50 Mg/5 Ml Vial) Confirm Administered Dose 50 mg .ROUTE .STK-MED ONE Stop: 01/27/21 14:23 - Exam Urinary Catheter Total Time: 1Days 21Hours General: Alert, Oriented Lungs: Normal Respiratory Effort Cardiovascular: Regular Rate, Regular Rhythm GI/Abdominal Exam: Soft, Tender - Patient Data Lab Results Last 24 hrs: Laboratory Results - last 24 hr 01/30/21 01/30/21 Range/Units 05:46 05:46 WBC 8.01 (4.23-9.07) K/mm3 RBC 3.18 L (4.63-6.08) M/mm3 Hgb 9.9 L (13.7-17.5) gm/dl Hct 30.7 L (40.1-51.0) % MCV 96.5 H (79.0-92.2) fl MCH 31.1 (25.7-32.2) pg MCHC 32.2 (32.2-35.5) g/dl RDW Std Deviation 45.0 H (35.1-43.9) fL Plt Count 196 (163-337) K/mm3 MPV 8.8 L (9.4-12.3) fl Neut % (Auto) 76.6 H (34.0-67.9) % Lymph % (Auto) 14.6 L (21.8-53.1) % [place] % (Auto) 4.9 L (5.3-12.2) % Eos % (Auto) 2.5 (0.8-7.0) Baso % (Auto) 0.2 (0.1-1.2) % Neut # (Auto) 6.13 H (1.78-5.38) K/mm3 Lymph # (Auto) 1.17 L (1.32-3.57) K/mm3 [place] # (Auto) 0.39 (0.30-0.82) K/mm3 Eos # (Auto) 0.20 (0.04-0.54) K/mm3 Baso # (Auto) 0.02 (0.01-0.08) K/mm3 Manual Slide Review Normal smear Sodium 142 (136-145) mEq/L Potassium 3.6 (3.5-5.1) mEq/L Chloride 106 (98-107) mEq/L Carbon Dioxide 30 (21-32) mEq/L Anion Gap 9.6 (5-15) BUN 10 (7-18) mg/dL Creatinine 0.9 (0.7-1.3) mg/dL Est Cr Clr Drug Dosing 68.61 mL/min Estimated GFR (MDRD) > 60 (>60) mL/min BUN/Creatinine Ratio 11.1 L (14-18) Glucose 125 H (70-99) mg/dL Calcium 7.4 L (8.5-10.1) mg/dL Phosphorus 2.6 (2.6-4.7) mg/dL Magnesium 1.8 (1.8-2.4) mg/dL Result Diagrams: 01/30/21 05:46 01/30/21 05:46 Sepsis Event Note - Evaluation Sepsis Screening Result: No Definite Risk - Focused Exam Vital Signs: Vital Signs Temp Pulse Resp BP Pulse Ox Pulse Ox 01/30/21 12:30 81 118/56 L 01/30/21 11:25 98.1 F 81 16 118/56 L 94 L 01/30/21 09:29 91 L 01/30/21 07:34 79 16 143/64 H 92 L 01/30/21 06:17 79 130/62 - Problem List Review Problem List Initiated/Reviewed/Updated: No - My Orders Last 24 Hours: My Active Orders 01/29/21 16:40 Patient Status [ADT] Routine 01/30/21 09:00 Enoxaparin [Lovenox] 40 mg SUBCUT DAILY Fluticasone Propionate [Flonase] 0 gm NASBOTH DAILY polyethylene glycoL 3350 [MiraLAX] 17 gm PO DAILY 01/30/21 Lunch Full Liquid Diet [DIET] 01/31/21 05:11 BASIC METABOLIC PANEL,BMP [CHEM] AM CBC WITH AUTO DIFF [HEME] AM MAGNESIUM [CHEM] AM PHOSPHORUS [CHEM] AM - Assessment Assessment:: POD3, right hemicolectomy for colonic perforation and abscess. Stable. - Plan Plan:: - Started FLD yesterday night. Will continue FLD today - DC IVF - Labs are good. COntinue daily labs - Continue ambulation and incentive spirometer - Awaiting return of bowel function - Will convert some medications to oral. Patient's length of stay is greater than 96 hrs due to slow recovery.
[2021-01-30] MEDS ORDERED: Carboxymethylcellulose Sodium 1% Ophth Gel 15 ML Bottle EYEBOTH PRN (16:00)
[2021-01-30] MEDS: Trospium 20 MG Tab PO SCH (17:37)
[2021-01-30] MEDS: Potassium Chloride 10 MEQ in Premix Bag 1 BAG IV SCH ×2 (17:42→19:38)
[2021-01-30] MEDS ORDERED: diphenhydrAMINE 25 MG Cap PO PRN (21:00)
[2021-01-30] MEDS: atorvaSTATin 40 MG Tab PO SCH (21:27)
[2021-01-30] MEDS: Tamsulosin 0.4 MG Cap.ER PO SCH (21:28)
[2021-01-31] MEDS: Piperacillin/Tazobactam 4.5 GM in Sodium Chloride 0.9% 100 ML IV SCH ×3 (01:01→17:48)
[2021-01-31] MEDS: Acetaminophen 325 MG Tab PO SCH ×4 (01:02→17:49)
[2021-01-31] MEDS: HYDROmorphone 0.5 MG/0.5 ML Syringe IVPUSH PRN ×4 (01:22→15:18)
[2021-01-31] MEDS: oxyCODONE 5 MG Tab PO PRN ×4 (04:50→21:57)
[2021-01-31] MEDS: Trospium 20 MG Tab PO SCH ×2 (06:02→17:49)
[2021-01-31] MEDS: Polyethylene Glycol 3350 Powder 17 GM Packet PO SCH ×2 (08:16→17:49)
[2021-01-31] MEDS: Enoxaparin 40 MG/0.4 ML Syringe SUBCUT SCH (08:17)
[2021-01-31] MEDS: Aspirin 81 MG Tab.Chew PO SCH (08:17)
[2021-01-31] MEDS: Lisinopril 20 MG Tab PO SCH (08:17)
[2021-01-31] MEDS: Potassium Chloride 10 MEQ in Premix Bag 1 BAG IV SCH ×3 (08:17→12:14)
[2021-01-31] MEDS: Pantoprazole 40 MG Tab.CR PO SCH (08:18)
[2021-01-31] MEDS: Metoprolol Succinate 25 MG Tab.ER PO SCH (08:18)
[2021-01-31] MEDS: MIRABEGRON 50 MG PO SCH (08:18)
[2021-01-31] MEDS: Fluticasone Propionate Nasal Spray 16 GM Bottle NASBOTH SCH (08:20)
[2021-01-31] MEDS ORDERED: Fluticasone Propionate Nasal Spray 16 GM Bottle NASBOTH SCH (09:00)
[2021-01-31] MEDS ORDERED: Magnesium Sulfate/Water 2 GM in Premix Bag 1 BAG IV ONE (11:30)
--- NOTE | 2021-01-31 14:57 | PCM.PN ---
- General Info Date of Service: 01/31/21 Admission Dx/Problem (Free Text): Admission Diagnosis/Problem Admission Diagnosis/Problem Abscess Subjective Update: Patient has more back pain than abdominal pain. no nausea or vomiting. has a tiny bowel movement, ambulates Functional Status: Reports: Tolerating Diet, Ambulating, Urinating - Review of Systems General: Reports: No Symptoms HEENT: Reports: No Symptoms Pulmonary: Reports: No Symptoms Cardiovascular: Reports: No Symptoms Gastrointestinal: Reports: Abdominal Pain Genitourinary: Reports: No Symptoms Musculoskeletal: Reports: No Symptoms Skin: Reports: No Symptoms Neurological: Reports: No Symptoms - Patient Data Vitals - Most Recent: Last Vital Signs Temp 98.4 F 01/31/21 11:47 Pulse 85 01/31/21 11:48 Resp 16 01/31/21 11:47 BP 137/60 01/31/21 11:47 Pulse Ox 91 L 01/31/21 11:48 Weight - Most Recent: 103.464 kg I&O - Last 24 Hours: Intake & Output 01/30/21 01/31/21 01/31/21 22:59 06:59 14:59 Intake Total 1613 400 120 Output Total 960 630 Balance 653 -230 120 Lab Results Last 24 Hours: Laboratory Results - last 24 hr 01/31/21 01/31/21 Range/Units 04:57 04:57 WBC 11.16 H (4.23-9.07) K/mm3 RBC 3.24 L (4.63-6.08) M/mm3 Hgb 10.3 L (13.7-17.5) gm/dl Hct 30.9 L (40.1-51.0) % MCV 95.4 H (79.0-92.2) fl MCH 31.8 (25.7-32.2) pg MCHC 33.3 (32.2-35.5) g/dl RDW Std Deviation 44.0 H (35.1-43.9) fL Plt Count 231 (163-337) K/mm3 MPV 9.0 L (9.4-12.3) fl Neut % (Auto) 77.5 H (34.0-67.9) % Lymph % (Auto) 16.1 L (21.8-53.1) % [place] % (Auto) 4.8 L (5.3-12.2) % Eos % (Auto) 1.2 (0.8-7.0) Baso % (Auto) 0.4 (0.1-1.2) % Neut # (Auto) 8.65 H (1.78-5.38) K/mm3 Lymph # (Auto) 1.80 (1.32-3.57) K/mm3 [place] # (Auto) 0.54 (0.30-0.82) K/mm3 Eos # (Auto) 0.13 (0.04-0.54) K/mm3 Baso # (Auto) 0.04 (0.01-0.08) K/mm3 Manual Slide Review Abnormal smear Sodium 139 (136-145) mEq/L Potassium 3.7 (3.5-5.1) mEq/L Chloride 102 (98-107) mEq/L Carbon Dioxide 27 (21-32) mEq/L Anion Gap 13.7 (5-15) BUN 9 (7-18) mg/dL Creatinine 0.8 (0.7-1.3) mg/dL Est Cr Clr Drug Dosing 77.19 mL/min Estimated GFR (MDRD) > 60 (>60) mL/min BUN/Creatinine Ratio 11.3 L (14-18) Glucose 109 H (70-99) mg/dL Calcium 7.6 L (8.5-10.1) mg/dL Phosphorus 2.7 (2.6-4.7) mg/dL Magnesium 1.7 L (1.8-2.4) mg/dL Med Orders - Current: Current Medications Acetaminophen (Acetaminophen 325 Mg Tab) 650 mg PO Q6H [facility] Last Admin: 01/31/21 11:38 Dose: 650 mg Documented by: Albuterol (Albuterol 6.7 Gm Inhaler) 0 gm INH Q6HR PRN PRN Reason: Shortness of Breath Artificial Tears (Carboxymethylcellulose Sodium 1% Ophth Gel 15 Ml Bottle) 0 ml EYEBOTH Q6H PRN PRN Reason: Dry Eyes Aspirin (Aspirin 81 Mg Tab.Chew) 81 mg PO DAILY [facility] Last Admin: 01/31/21 08:17 Dose: 81 mg Documented by: Atorvastatin Calcium (Atorvastatin 40 Mg Tab) 40 mg PO BEDTIME [facility] Last Admin: 01/30/21 21:27 Dose: 40 mg Documented by: Diphenhydramine HCl (Diphenhydramine 25 Mg Cap) 25 mg PO BEDTIME PRN PRN Reason: Shortness of Breath Enoxaparin Sodium (Enoxaparin 40 Mg/0.4 Ml Syringe) 40 mg SUBCUT DAILY [facility] Last Admin: 01/31/21 08:17 Dose: 40 mg Documented by: Fluticasone Propionate (Fluticasone Propionate Nasal [place] 16 Gm Bottle) 0 gm NASBOTH DAILY [facility] Last Admin: 01/31/21 08:20 Dose: Not Given Documented by: Hydromorphone HCl (Hydromorphone 0.5 Mg/0.5 Ml Syringe) 0.5 mg IVPUSH Q3H PRN PRN Reason: Pain (severe 7-10) Last Admin: 01/31/21 11:39 Dose: 0.5 mg Documented by: Piperacillin Sod/Tazobactam (Sod 4.5 gm/ Sodium Chloride) 100 mls @ 25 mls/hr IV Q8H [facility] Last Admin: 01/31/21 08:16 Dose: 25 mls/hr Documented by: Lisinopril (Lisinopril 20 Mg Tab) 20 mg PO DAILY [facility] Last Admin: 01/31/21 08:17 Dose: 20 mg Documented by: Metoprolol Succinate (Metoprolol Succinate 25 Mg Tab.Er) 25 mg PO DAILY [facility] Last Admin: 01/31/21 08:18 Dose: 25 mg Documented by: Ondansetron HCl (Ondansetron 4 Mg Tab.Dis) 4 mg PO Q4H PRN PRN Reason: nausea, able to take PO Ondansetron HCl (Ondansetron 4 Mg/2 Ml Sdv) 4 mg IV Q4H PRN PRN Reason: Nausea/Vomiting Oxycodone HCl (Oxycodone 5 Mg Tab) 5 mg PO Q4H PRN PRN Reason: Pain (moderate 4-6) Last Admin: 01/31/21 10:05 Dose: 5 mg Documented by: Pantoprazole Sodium (Pantoprazole 40 Mg Tab.Cr) 40 mg PO DAILY [facility] Last Admin: 01/31/21 08:18 Dose: 40 mg Documented by: Mirabegron 50 Mg Tab .Er Patient's Own Med 0 each PO DAILY [facility] Last Admin: 01/31/21 08:18 Dose: Not Given Documented by: Polyethylene Glycol (Polyethylene Glycol 3350 Powder 17 Gm Packet) 17 gm PO DAILY [facility] Last Admin: 01/31/21 08:16 Dose: Not Given Documented by: Sodium Chloride (Sodium Chloride 0.9% 10 Ml Syringe) 10 ml FLUSH ASDIRECTED PRN PRN Reason: Keep Vein Open Tamsulosin HCl (Tamsulosin 0.4 Mg Cap.Er) 0.4 mg PO BEDTIME [facility] Last Admin: 01/30/21 21:28 Dose: 0.4 mg Documented by: Trospium (Trospium 20 Mg Tab) 20 mg PO BIDAC [facility] Last Admin: 01/31/21 06:02 Dose: 20 mg Documented by: Discontinued Medications Acetaminophen (Acetaminophen 325 Mg Tab) 650 mg PO Q4H PRN PRN Reason: Pain (Mild 1-3)/fever Acetaminophen (Acetaminophen 325 Mg Tab) 650 mg PO Q6H [facility] Last Admin: 01/29/21 01:09 Dose: 650 mg Documented by: Albuterol (Albuterol 0.083% 2.5 Mg/3 Ml Neb Soln) 2.5 mg NEB ONETIME ONE Stop: 01/27/21 08:16 Last Admin: 01/27/21 08:21 Dose: 2.5 mg Documented by: Bupivacaine HCl/Epinephrine Bitart (Bupivacaine 0.5%/Epinephrine 1:200,000 50 Ml Mdv) Confirm Administered Dose 100 ml .ROUTE .STK-MED ONE Stop: 01/27/21 09:48 Last Admin: 01/27/21 11:27 Dose: 30 ml Documented by: Dexamethasone (Dexamethasone 4 Mg/Ml 5 Ml Mdv) Confirm Administered Dose 20 mg .ROUTE .STK-MED ONE Stop: 01/27/21 08:34 Diphenhydramine HCl (Diphenhydramine 50 Mg/Ml Sdv) 25 mg IVPUSH BEDTIME PRN PRN Reason: Sleep Enoxaparin Sodium (Enoxaparin 30 Mg/0.3 Ml Syringe) 30 mg SUBCUT DAILY [facility] Last Admin: 01/29/21 09:29 Dose: 30 mg Documented by: Fentanyl (Fentanyl 250 Mcg/5 Ml Sdv) Confirm Administered Dose 250 mcg .ROUTE .STK-MED ONE Stop: 01/27/21 08:31 Fentanyl (Fentanyl 100 Mcg/2 Ml Sdv) Confirm Administered Dose 100 mcg .ROUTE .STK-MED ONE Stop: 01/27/21 14:39 Fentanyl (Fentanyl 100 Mcg/2 Ml Sdv) 50 mcg IVPUSH Q5M PRN PRN Reason: Pain Fentanyl (Fentanyl 100 Mcg/2 Ml Sdv) Confirm Administered Dose 100 mcg .ROUTE .STK-MED ONE Stop: 01/27/21 16:41 Fluticasone Propionate (Fluticasone Propionate Nasal [place] 16 Gm Bottle) gm NASBOTH DAILY [facility] Glycopyrrolate (Glycopyrrolate 0.2 Mg/Ml Sdv) Confirm Administered Dose 0.4 mg .ROUTE .STK-MED ONE Stop: 01/27/21 15:01 Hydromorphone HCl (Hydromorphone 0.5 Mg/0.5 Ml Syringe) 0.5 mg IVPUSH Q10M PRN PRN Reason: Pain (severe 7-10) Hydromorphone HCl (Hydromorphone 0.5 Mg/0.5 Ml Syringe) Confirm Administered Dose 0.5 mg .ROUTE .STK-MED ONE Stop: 01/27/21 16:08 Lactated Ringer's (Ringers, Lactated) 1,000 mls @ 999 mls/hr IV .BOLUS ONE Stop: 01/26/21 16:45 Last Admin: 01/26/21 16:12 Dose: 999 mls/hr Documented by: Lactated Ringer's (Ringers, Lactated) 1,000 mls @ 125 mls/hr IV ASDIRECTED [facility] Last Admin: 01/28/21 10:00 Dose: 125 mls/hr Documented by: Piperacillin Sod/Tazobactam (Sod 4.5 gm/ Sodium Chloride) 100 mls @ 200 mls/hr IV ONETIME ONE Stop: 01/26/21 17:29 Last Admin: 01/26/21 16:34 Dose: 200 mls/hr Documented by: Potassium Chloride 10 meq/ (Premix) 100 mls @ 100 mls/hr IV Q1H [facility] Stop: 01/26/21 19:59 Last Admin: 01/26/21 19:50 Dose: Not Given Documented by: Potassium Chloride 10 meq/ (Premix) 100 mls @ 100 mls/hr IV Q1H [facility] Stop: 01/26/21 21:39 Last Admin: 01/26/21 19:51 Dose: Not Given Documented by: Potassium Chloride 10 meq/ (Premix) 100 mls @ 100 mls/hr IV Q1H [facility] Stop: 01/26/21 21:44 Last Admin: 01/26/21 21:36 Dose: 100 mls/hr Documented by: Potassium Chloride 10 meq/ (Premix) 100 mls @ 100 mls/hr IV Q1H [facility] Stop: 01/27/21 12:14 Last Admin: 01/27/21 15:52 Dose: Not Given Documented by: Lidocaine HCl (Xylocaine-Mpf 1%) Confirm Administered Dose 4 mls @ as directed .ROUTE .STK-MED ONE Stop: 01/27/21 08:31 Lactated Ringer's (Ringers, Lactated) Confirm Administered Dose 1,000 mls @ as directed .ROUTE .STK-MED ONE Stop: 01/27/21 08:31 Lactated Ringer's (Ringers, Lactated) Confirm Administered Dose 1,000 mls @ as directed .ROUTE .[facility] ONE Stop: 01/27/21 12:27 Lactated Ringer's (Ringers, Lactated) Confirm Administered Dose 1,000 mls @ as directed .ROUTE .ST-MED ONE Stop: 01/27/21 14:08 Lactated Ringer's (Ringers, Lactated) Confirm Administered Dose 1,000 mls @ as directed .ROUTE .STK-MED ONE Stop: 01/27/21 16:12 Metoprolol Tartrate 5 mg/ (Sodium Chloride) 55 mls @ 100 mls/hr IV Q6H [facility] Last Admin: 01/27/21 19:58 Dose: Not Given Documented by: Pantoprazole Sodium 40 mg/ (Sodium Chloride) 100 mls @ 200 mls/hr IV DAILY [facility] Magnesium Sulfate 4 gm/ Premix 50 mls @ 12.5 mls/hr IV ONETIME ONE Stop: 01/28/21 14:57 Last Admin: 01/28/21 12:21 Dose: 12.5 mls/hr Documented by: Potassium Chloride/Dextrose/Sod Cl (D5 1/2 Ns W/ 20 Meq/L Kcl) 1,000 mls @ 75 mls/hr IV ASDIRECTED [facility] Last Admin: 01/29/21 09:30 Dose: 75 mls/hr Documented by: Potassium Chloride/Dextrose/Sod Cl (D5 1/2 Ns W/ 20 Meq/L Kcl) 1,000 mls @ 50 mls/hr IV ASDIRECTED [facility] Last Admin: 01/30/21 06:16 Dose: 50 mls/hr Documented by: Potassium Chloride 10 meq/ (Premix) 100 mls @ 100 mls/hr IV Q1H [facility] Stop: 01/30/21 17:59 Last Admin: 01/30/21 19:38 Dose: 100 mls/hr Documented by: Magnesium Sulfate/Dextrose 1 (gm/ Premix) 100 mls @ 100 mls/hr IV Q1H [facility] Stop: 01/30/21 18:59 Last Admin: 01/30/21 17:42 Dose: 100 mls/hr Documented by: Magnesium Sulfate 2 gm/ Premix 50 mls @ 25 mls/hr IV ONETIME ONE Stop: 01/31/21 13:29 Last Admin: 01/31/21 13:27 Dose: 25 mls/hr Documented by: Potassium Chloride 10 meq/ (Premix) 100 mls @ 100 mls/hr IV Q1H [facility] Stop: 01/31/21 10:59 Last Admin: 01/31/21 12:14 Dose: 100 mls/hr Documented by: Ketamine HCl (Ketamine 500 Mg/10 Ml Mdv) Confirm Administered Dose 500 mg .ROUTE .STK-MED ONE Stop: 01/27/21 11:40 Metoprolol Tartrate (Metoprolol Tartrate 5 Mg/5 Ml Sdv) Confirm Administered Dose 5 mg .ROUTE .STK-MED ONE Stop: 01/27/21 11:50 Metoprolol Tartrate (Metoprolol Tartrate 5 Mg/5 Ml Sdv) 5 mg IVPUSH Q6H [facility] Last Admin: 01/30/21 12:30 Dose: 5 mg Documented by: Midazolam HCl (Midazolam 1 Mg/Ml 2 Ml Sdv) Confirm Administered Dose 2 mg .ROUTE .STK-MED ONE Stop: 01/27/21 08:31 Neostigmine Methylsulfate (Neostigmine Methylsulfate 5 Mg/5 Ml Syringe) Confirm Administered Dose 5 mg .ROUTE .STK-MED ONE Stop: 01/27/21 15:01 Ondansetron HCl (Ondansetron 4 Mg/2 Ml Sdv) Confirm Administered Dose 4 mg .ROUTE .STK-MED ONE Stop: 01/27/21 08:31 Ondansetron HCl (Ondansetron 4 Mg/2 Ml Sdv) 4 mg IVPUSH ONETIME PRN PRN Reason: Nausea/Vomiting Ondansetron HCl (Ondansetron 4 Mg/2 Ml Sdv) Confirm Administered Dose 4 mg .ROUTE .STK-MED ONE Stop: 01/27/21 16:40 Pantoprazole Sodium (Pantoprazole 40 Mg Vial) 40 mg IVPUSH DAILY [facility] Last Admin: 01/30/21 08:11 Dose: 40 mg Documented by: Pantoprazole Sodium (Pantoprazole 40 Mg Vial) Confirm Administered Dose 40 mg .ROUTE .STK-MED ONE Stop: 01/28/21 08:41 Last Admin: 01/28/21 09:07 Dose: Not Given Documented by: Piperacillin Sod/Tazobactam Sod (Piperacillin/Tazobactam 4.5 Gm Advvial) Confirm Administered Dose 4.5 gm .ROUTE .STK-MED ONE Stop: 01/29/21 16:33 Last Admin: 01/29/21 16:40 Dose: Not Given Documented by: Propofol (Propofol 200 Mg/20 Ml Sdv) Confirm Administered Dose 400 mg .ROUTE .STK-MED ONE Stop: 01/27/21 08:31 Propofol (Propofol 200 Mg/20 Ml Sdv) Confirm Administered Dose 200 mg .ROUTE .STK-MED ONE Stop: 01/27/21 12:42 Propofol (Propofol 200 Mg/20 Ml Sdv) Confirm Administered Dose 200 mg .ROUTE .STK-MED ONE Stop: 01/27/21 14:18 Propofol (Propofol 200 Mg/20 Ml Sdv) Confirm Administered Dose 200 mg .ROUTE .STK-MED ONE Stop: 01/27/21 16:11 Rocuronium [place] (Rocuronium 50 Mg/5 Ml Vial) Confirm Administered Dose 50 mg .ROUTE .STK-MED ONE Stop: 01/27/21 08:31 Rocuronium [place] (Rocuronium 50 Mg/5 Ml Vial) Confirm Administered Dose 50 mg .ROUTE .STK-MED ONE Stop: 01/27/21 12:14 Rocuronium [place] (Rocuronium 50 Mg/5 Ml Vial) Confirm Administered Dose 50 mg .ROUTE .STK-MED ONE Stop: 01/27/21 14:23 - Exam Quality Assessment: Supplemental Oxygen Urinary Catheter Total Time: 1Days 21Hours General: Alert, Oriented, Cooperative Lungs: Normal Respiratory Effort Cardiovascular: Regular Rate, Regular Rhythm, No Murmurs GI/Abdominal Exam: Soft, Distended, Tender, Other (abdominal drain is serosanguinous) Wound/Incisions: Healing Well, Dressing Dry and Intact - Patient Data Lab Results Last 24 hrs: Laboratory Results - last 24 hr 01/31/21 01/31/21 Range/Units 04:57 04:57 WBC 11.16 H (4.23-9.07) K/mm3 RBC 3.24 L (4.63-6.08) M/mm3 Hgb 10.3 L (13.7-17.5) gm/dl Hct 30.9 L (40.1-51.0) % MCV 95.4 H (79.0-92.2) fl MCH 31.8 (25.7-32.2) pg MCHC 33.3 (32.2-35.5) g/dl RDW Std Deviation 44.0 H (35.1-43.9) fL Plt Count 231 (163-337) K/mm3 MPV 9.0 L (9.4-12.3) fl Neut % (Auto) 77.5 H (34.0-67.9) % Lymph % (Auto) 16.1 L (21.8-53.1) % [place] % (Auto) 4.8 L (5.3-12.2) % Eos % (Auto) 1.2 (0.8-7.0) Baso % (Auto) 0.4 (0.1-1.2) % Neut # (Auto) 8.65 H (1.78-5.38) K/mm3 Lymph # (Auto) 1.80 (1.32-3.57) K/mm3 [place] # (Auto) 0.54 (0.30-0.82) K/mm3 Eos # (Auto) 0.13 (0.04-0.54) K/mm3 Baso # (Auto) 0.04 (0.01-0.08) K/mm3 Manual Slide Review Abnormal smear Sodium 139 (136-145) mEq/L Potassium 3.7 (3.5-5.1) mEq/L Chloride 102 (98-107) mEq/L Carbon Dioxide 27 (21-32) mEq/L Anion Gap 13.7 (5-15) BUN 9 (7-18) mg/dL Creatinine 0.8 (0.7-1.3) mg/dL Est Cr Clr Drug Dosing 77.19 mL/min Estimated GFR (MDRD) > 60 (>60) mL/min BUN/Creatinine Ratio 11.3 L (14-18) Glucose 109 H (70-99) mg/dL Calcium 7.6 L (8.5-10.1) mg/dL Phosphorus 2.7 (2.6-4.7) mg/dL Magnesium 1.7 L (1.8-2.4) mg/dL Result Diagrams: 01/31/21 04:57 01/31/21 04:57 Sepsis Event Note - Evaluation Sepsis Screening Result: No Definite Risk - Focused Exam Vital Signs: Vital Signs Temp Pulse Resp BP Pulse Ox Pulse Ox 01/31/21 11:48 85 91 L 01/31/21 11:47 98.4 F 87 16 137/60 01/31/21 09:06 92 L 01/31/21 08:18 92 152/68 H 01/31/21 08:17 152/68 H 01/31/21 07:36 98.4 F 92 20 152/68 H 95 01/31/21 04:41 98.2 F 103 H 19 147/60 H 91 L - Problem List Review Problem List Initiated/Reviewed/Updated: No - My Orders Last 24 Hours: My Active Orders 01/30/21 16:00 Carboxymethylcellulose Sodium [Refresh Liquigel 1%] 0 ml EYEBOTH Q6H PRN 01/30/21 16:30 Trospium [Sanctura] 20 mg PO BIDAC 01/30/21 21:00 Tamsulosin [Flomax] 0.4 mg PO BEDTIME atorvaSTATin [Lipitor] 40 mg PO BEDTIME diphenhydrAMINE [Benadryl] 25 mg PO BEDTIME PRN 01/31/21 09:00 Metoprolol Succinate [Toprol XL] 25 mg PO DAILY Pantoprazole [ProTONIX] 40 mg PO DAILY Patient's Own Medication [Ptom] 0 each PO DAILY lisinopriL [Prinivil] 20 mg PO DAILY - Assessment Assessment:: POD4, right hemicolectomy for colonic perforation and abscess. Stable. - Plan Plan:: - Will continue FLD today - Continue daily labs - Continue ambulation and incentive spirometer - Awaiting return of bowel function - Will convert some medications to oral. - Will replete electrolytes - Magnesium and potassium
[2021-01-31] MEDS ORDERED: HYDROmorphone 0.5 MG/0.5 ML Syringe IVPUSH PRN (17:20)
[2021-01-31] MEDS ORDERED: Bisacodyl 10 MG Supp RECTAL ONE (17:30)
[2021-01-31] MEDS: atorvaSTATin 40 MG Tab PO SCH (21:12)
[2021-01-31] MEDS: Tamsulosin 0.4 MG Cap.ER PO SCH (21:12)
[2021-02-01] MEDS: Acetaminophen 325 MG Tab PO SCH ×5 (00:15→23:54)
[2021-02-01] MEDS: Piperacillin/Tazobactam 4.5 GM in Sodium Chloride 0.9% 100 ML IV SCH ×2 (00:16→08:14)
[2021-02-01] MEDS: oxyCODONE 5 MG Tab PO PRN ×6 (02:37→23:54)
[2021-02-01] MEDS: Trospium 20 MG Tab PO SCH ×2 (06:37→15:24)
[2021-02-01] MEDS: Fluticasone Propionate Nasal Spray 16 GM Bottle NASBOTH SCH (08:12)
[2021-02-01] MEDS: Enoxaparin 40 MG/0.4 ML Syringe SUBCUT SCH (08:12)
[2021-02-01] MEDS: Metoprolol Succinate 25 MG Tab.ER PO SCH (08:13)
[2021-02-01] MEDS: Polyethylene Glycol 3350 Powder 17 GM Packet PO SCH (08:13)
[2021-02-01] MEDS: Aspirin 81 MG Tab.Chew PO SCH (08:13)
[2021-02-01] MEDS: Pantoprazole 40 MG Tab.CR PO SCH (08:14)
[2021-02-01] MEDS: Lisinopril 20 MG Tab PO SCH (08:14)
[2021-02-01] MEDS: MIRABEGRON 50 MG PO SCH (08:15)
--- NOTE | 2021-02-01 18:06 | PCM.PN ---
- General Info Date of Service: 02/01/21 Admission Dx/Problem (Free Text): Admission Diagnosis/Problem Admission Diagnosis/Problem Abscess Subjective Update: Patient had a BM, is tolerating reg diet. Pain is still an issue for him. He ambulated. Functional Status: Reports: Tolerating Diet, Ambulating, Urinating - Review of Systems General: Reports: No Symptoms HEENT: Reports: No Symptoms Pulmonary: Reports: No Symptoms Cardiovascular: Reports: No Symptoms Gastrointestinal: Reports: Abdominal Pain - Patient Data Vitals - Most Recent: Last Vital Signs Temp 97.3 F 02/01/21 11:10 Pulse 93 02/01/21 15:34 Resp 18 02/01/21 11:10 BP 142/76 H 02/01/21 16:00 Pulse Ox 94 L 02/01/21 15:34 Weight - Most Recent: 103.464 kg I&O - Last 24 Hours: Intake & Output 02/01/21 02/01/21 02/01/21 06:59 14:59 22:59 Intake Total 93 1550 Output Total 580 300 Balance -487 1250 Med Orders - Current: Current Medications Acetaminophen (Acetaminophen 325 Mg Tab) 650 mg PO Q6H [facility] Last Admin: 02/01/21 11:21 Dose: 650 mg Documented by: Albuterol (Albuterol 6.7 Gm Inhaler) 0 gm INH Q6HR PRN PRN Reason: Shortness of Breath Artificial Tears (Carboxymethylcellulose Sodium 1% Ophth Gel 15 Ml Bottle) 0 ml EYEBOTH Q6H PRN PRN Reason: Dry Eyes Aspirin (Aspirin 81 Mg Tab.Chew) 81 mg PO DAILY [facility] Last Admin: 02/01/21 08:13 Dose: 81 mg Documented by: Atorvastatin Calcium (Atorvastatin 40 Mg Tab) 40 mg PO BEDTIME [facility] Last Admin: 01/31/21 21:12 Dose: 40 mg Documented by: Diphenhydramine HCl (Diphenhydramine 25 Mg Cap) 25 mg PO BEDTIME PRN PRN Reason: Shortness of Breath Enoxaparin Sodium (Enoxaparin 40 Mg/0.4 Ml Syringe) 40 mg SUBCUT DAILY [facility] Last Admin: 02/01/21 08:12 Dose: 40 mg Documented by: Fluticasone Propionate (Fluticasone Propionate Nasal [place] 16 Gm Bottle) 0 gm NASBOTH DAILY [facility] Last Admin: 02/01/21 08:12 Dose: 1 spray Documented by: Hydromorphone HCl (Hydromorphone 0.5 Mg/0.5 Ml Syringe) 0.5 mg IVPUSH Q6H PRN PRN Reason: Pain Last Admin: 02/01/21 14:32 Dose: 0.5 mg Documented by: Lisinopril (Lisinopril 20 Mg Tab) 20 mg PO DAILY [facility] Last Admin: 02/01/21 08:14 Dose: 20 mg Documented by: Metoprolol Succinate (Metoprolol Succinate 25 Mg Tab.Er) 25 mg PO DAILY [facility] Last Admin: 02/01/21 08:13 Dose: 25 mg Documented by: Ondansetron HCl (Ondansetron 4 Mg Tab.Dis) 4 mg PO Q4H PRN PRN Reason: nausea, able to take PO Ondansetron HCl (Ondansetron 4 Mg/2 Ml Sdv) 4 mg IV Q4H PRN PRN Reason: Nausea/Vomiting Oxycodone HCl (Oxycodone 5 Mg Tab) 10 mg PO Q4H PRN PRN Reason: Pain Last Admin: 02/01/21 15:25 Dose: 10 mg Documented by: Pantoprazole Sodium (Pantoprazole 40 Mg Tab.Cr) 40 mg PO DAILY [facility] Last Admin: 02/01/21 08:14 Dose: 40 mg Documented by: Mirabegron 50 Mg Tab .Er Patient's Own Med 0 each PO DAILY [facility] Last Admin: 02/01/21 08:15 Dose: Not Given Documented by: Polyethylene Glycol (Polyethylene Glycol 3350 Powder 17 Gm Packet) 17 gm PO DAILY [facility] Last Admin: 02/01/21 08:13 Dose: 17 gm Documented by: Sodium Chloride (Sodium Chloride 0.9% 10 Ml Syringe) 10 ml FLUSH ASDIRECTED PRN PRN Reason: Keep Vein Open Tamsulosin HCl (Tamsulosin 0.4 Mg Cap.Er) 0.4 mg PO BEDTIME [facility] Last Admin: 01/31/21 21:12 Dose: 0.4 mg Documented by: Trospium (Trospium 20 Mg Tab) 20 mg PO BIDAC [facility] Last Admin: 02/01/21 15:24 Dose: 20 mg Documented by: Discontinued Medications Acetaminophen (Acetaminophen 325 Mg Tab) 650 mg PO Q4H PRN PRN Reason: Pain (Mild 1-3)/fever Acetaminophen (Acetaminophen 325 Mg Tab) 650 mg PO Q6H [facility] Last Admin: 01/29/21 01:09 Dose: 650 mg Documented by: Albuterol (Albuterol 0.083% 2.5 Mg/3 Ml Neb Soln) 2.5 mg NEB ONETIME ONE Stop: 01/27/21 08:16 Last Admin: 01/27/21 08:21 Dose: 2.5 mg Documented by: Bisacodyl (Bisacodyl 10 Mg Supp) 10 mg RECTAL ONETIME ONE Stop: 01/31/21 17:31 Last Admin: 01/31/21 17:49 Dose: 10 mg Documented by: Bupivacaine HCl/Epinephrine Bitart (Bupivacaine 0.5%/Epinephrine 1:200,000 50 Ml Mdv) Confirm Administered Dose 100 ml .ROUTE .STK-MED ONE Stop: 01/27/21 09:48 Last Admin: 01/27/21 11:27 Dose: 30 ml Documented by: Dexamethasone (Dexamethasone 4 Mg/Ml 5 Ml Mdv) Confirm Administered Dose 20 mg .ROUTE .STK-MED ONE Stop: 01/27/21 08:34 Diphenhydramine HCl (Diphenhydramine 50 Mg/Ml Sdv) 25 mg IVPUSH BEDTIME PRN PRN Reason: Sleep Enoxaparin Sodium (Enoxaparin 30 Mg/0.3 Ml Syringe) 30 mg SUBCUT DAILY [facility] Last Admin: 01/29/21 09:29 Dose: 30 mg Documented by: Fentanyl (Fentanyl 250 Mcg/5 Ml Sdv) Confirm Administered Dose 250 mcg .ROUTE .STK-MED ONE Stop: 01/27/21 08:31 Fentanyl (Fentanyl 100 Mcg/2 Ml Sdv) Confirm Administered Dose 100 mcg .ROUTE .STK-MED ONE Stop: 01/27/21 14:39 Fentanyl (Fentanyl 100 Mcg/2 Ml Sdv) 50 mcg IVPUSH Q5M PRN PRN Reason: Pain Fentanyl (Fentanyl 100 Mcg/2 Ml Sdv) Confirm Administered Dose 100 mcg .ROUTE .STK-MED ONE Stop: 01/27/21 16:41 Fluticasone Propionate (Fluticasone Propionate Nasal [place] 16 Gm Bottle) gm NASBOTH DAILY [facility] Glycopyrrolate (Glycopyrrolate 0.2 Mg/Ml Sdv) Confirm Administered Dose 0.4 mg .ROUTE .STK-MED ONE Stop: 01/27/21 15:01 Hydromorphone HCl (Hydromorphone 0.5 Mg/0.5 Ml Syringe) 0.5 mg IVPUSH Q3H PRN PRN Reason: Pain (severe 7-10) Last Admin: 01/31/21 15:18 Dose: 0.5 mg Documented by: Hydromorphone HCl (Hydromorphone 0.5 Mg/0.5 Ml Syringe) 0.5 mg IVPUSH Q10M PRN PRN Reason: Pain (severe 7-10) Hydromorphone HCl (Hydromorphone 0.5 Mg/0.5 Ml Syringe) Confirm Administered Dose 0.5 mg .ROUTE .STK-MED ONE Stop: 01/27/21 16:08 Lactated Ringer's (Ringers, Lactated) 1,000 mls @ 999 mls/hr IV .BOLUS ONE Stop: 01/26/21 16:45 Last Admin: 01/26/21 16:12 Dose: 999 mls/hr Documented by: Lactated Ringer's (Ringers, Lactated) 1,000 mls @ 125 mls/hr IV ASDIRECTED [facility] Last Admin: 01/28/21 10:00 Dose: 125 mls/hr Documented by: Piperacillin Sod/Tazobactam (Sod 4.5 gm/ Sodium Chloride) 100 mls @ 25 mls/hr IV Q8H [facility] Last Admin: 02/01/21 08:14 Dose: 25 mls/hr Documented by: Piperacillin Sod/Tazobactam (Sod 4.5 gm/ Sodium Chloride) 100 mls @ 200 mls/hr IV ONETIME ONE Stop: 01/26/21 17:29 Last Admin: 01/26/21 16:34 Dose: 200 mls/hr Documented by: Potassium Chloride 10 meq/ (Premix) 100 mls @ 100 mls/hr IV Q1H [facility] Stop: 01/26/21 19:59 Last Admin: 01/26/21 19:50 Dose: Not Given Documented by: Potassium Chloride 10 meq/ (Premix) 100 mls @ 100 mls/hr IV Q1H [facility] Stop: 01/26/21 21:39 Last Admin: 01/26/21 19:51 Dose: Not Given Documented by: Potassium Chloride 10 meq/ (Premix) 100 mls @ 100 mls/hr IV Q1H [facility] Stop: 01/26/21 21:44 Last Admin: 01/26/21 21:36 Dose: 100 mls/hr Documented by: Potassium Chloride 10 meq/ (Premix) 100 mls @ 100 mls/hr IV Q1H [facility] Stop: 01/27/21 12:14 Last Admin: 01/27/21 15:52 Dose: Not Given Documented by: Lidocaine HCl (Xylocaine-Mpf 1%) Confirm Administered Dose 4 mls @ as directed .ROUTE .STK-MED ONE Stop: 01/27/21 08:31 Lactated Ringer's (Ringers, Lactated) Confirm Administered Dose 1,000 mls @ as directed .ROUTE .STK-MED ONE Stop: 01/27/21 08:31 Lactated Ringer's (Ringers, Lactated) Confirm Administered Dose 1,000 mls @ as directed .ROUTE .STK-MED ONE Stop: 01/27/21 12:27 Lactated Ringer's (Ringers, Lactated) Confirm Administered Dose 1,000 mls @ as directed .ROUTE .STK-MED ONE Stop: 01/27/21 14:08 Lactated Ringer's (Ringers, Lactated) Confirm Administered Dose 1,000 mls @ as directed .ROUTE .STK-MED ONE Stop: 01/27/21 16:12 Metoprolol Tartrate 5 mg/ (Sodium Chloride) 55 mls @ 100 mls/hr IV Q6H [facility] Last Admin: 01/27/21 19:58 Dose: Not Given Documented by: Pantoprazole Sodium 40 mg/ (Sodium Chloride) 100 mls @ 200 mls/hr IV DAILY [facility] Magnesium Sulfate 4 gm/ Premix 50 mls @ 12.5 mls/hr IV ONETIME ONE Stop: 01/28/21 14:57 Last Admin: 01/28/21 12:21 Dose: 12.5 mls/hr Documented by: Potassium Chloride/Dextrose/Sod Cl (D5 1/2 Ns W/ 20 Meq/L Kcl) 1,000 mls @ 75 mls/hr IV ASDIRECTED [facility] Last Admin: 01/29/21 09:30 Dose: 75 mls/hr Documented by: Potassium Chloride/Dextrose/Sod Cl (D5 1/2 Ns W/ 20 Meq/L Kcl) 1,000 mls @ 50 mls/hr IV ASDIRECTED [facility] Last Admin: 01/30/21 06:16 Dose: 50 mls/hr Documented by: Potassium Chloride 10 meq/ (Premix) 100 mls @ 100 mls/hr IV Q1H [facility] Stop: 01/30/21 17:59 Last Admin: 01/30/21 19:38 Dose: 100 mls/hr Documented by: Magnesium Sulfate/Dextrose 1 (gm/ Premix) 100 mls @ 100 mls/hr IV Q1H [facility] Stop: 01/30/21 18:59 Last Admin: 01/30/21 17:42 Dose: 100 mls/hr Documented by: Magnesium Sulfate 2 gm/ Premix 50 mls @ 25 mls/hr IV ONETIME ONE Stop: 01/31/21 13:29 Last Admin: 01/31/21 13:27 Dose: 25 mls/hr Documented by: Potassium Chloride 10 meq/ (Premix) 100 mls @ 100 mls/hr IV Q1H [facility] Stop: 01/31/21 10:59 Last Admin: 01/31/21 12:14 Dose: 100 mls/hr Documented by: Ketamine HCl (Ketamine 500 Mg/10 Ml Mdv) Confirm Administered Dose 500 mg .ROUTE .STK-MED ONE Stop: 01/27/21 11:40 Metoprolol Tartrate (Metoprolol Tartrate 5 Mg/5 Ml Sdv) Confirm Administered Dose 5 mg .ROUTE .STK-MED ONE Stop: 01/27/21 11:50 Metoprolol Tartrate (Metoprolol Tartrate 5 Mg/5 Ml Sdv) 5 mg IVPUSH Q6H [facility] Last Admin: 01/30/21 12:30 Dose: 5 mg Documented by: Midazolam HCl (Midazolam 1 Mg/Ml 2 Ml Sdv) Confirm Administered Dose 2 mg .ROUTE .STK-MED ONE Stop: 01/27/21 08:31 Neostigmine Methylsulfate (Neostigmine Methylsulfate 5 Mg/5 Ml Syringe) Confirm Administered Dose 5 mg .ROUTE .STK-MED ONE Stop: 01/27/21 15:01 Ondansetron HCl (Ondansetron 4 Mg/2 Ml Sdv) Confirm Administered Dose 4 mg .ROUTE .STK-MED ONE Stop: 01/27/21 08:31 Ondansetron HCl (Ondansetron 4 Mg/2 Ml Sdv) 4 mg IVPUSH ONETIME PRN PRN Reason: Nausea/Vomiting Ondansetron HCl (Ondansetron 4 Mg/2 Ml Sdv) Confirm Administered Dose 4 mg .ROUTE .STK-MED ONE Stop: 01/27/21 16:40 Oxycodone HCl (Oxycodone 5 Mg Tab) 5 mg PO Q4H PRN PRN Reason: Pain (moderate 4-6) Last Admin: 01/31/21 10:05 Dose: 5 mg Documented by: Pantoprazole Sodium (Pantoprazole 40 Mg Vial) 40 mg IVPUSH DAILY [facility] Last Admin: 01/30/21 08:11 Dose: 40 mg Documented by: Pantoprazole Sodium (Pantoprazole 40 Mg Vial) Confirm Administered Dose 40 mg .ROUTE .STK-MED ONE Stop: 01/28/21 08:41 Last Admin: 01/28/21 09:07 Dose: Not Given Documented by: Piperacillin Sod/Tazobactam Sod (Piperacillin/Tazobactam 4.5 Gm Advvial) Confirm Administered Dose 4.5 gm .ROUTE .STK-MED ONE Stop: 01/29/21 16:33 Last Admin: 01/29/21 16:40 Dose: Not Given Documented by: Polyethylene Glycol (Polyethylene Glycol 3350 Powder 17 Gm Packet) 17 gm PO DAILY [facility] Last Admin: 01/31/21 08:16 Dose: Not Given Documented by: Propofol (Propofol 200 Mg/20 Ml Sdv) Confirm Administered Dose 400 mg .ROUTE .STK-MED ONE Stop: 01/27/21 08:31 Propofol (Propofol 200 Mg/20 Ml Sdv) Confirm Administered Dose 200 mg .ROUTE .STK-MED ONE Stop: 01/27/21 12:42 Propofol (Propofol 200 Mg/20 Ml Sdv) Confirm Administered Dose 200 mg .ROUTE .STK-MED ONE Stop: 01/27/21 14:18 Propofol (Propofol 200 Mg/20 Ml Sdv) Confirm Administered Dose 200 mg .ROUTE .STK-MED ONE Stop: 01/27/21 16:11 Rocuronium [place] (Rocuronium 50 Mg/5 Ml Vial) Confirm Administered Dose 50 mg .ROUTE .STK-MED ONE Stop: 01/27/21 08:31 Rocuronium [place] (Rocuronium 50 Mg/5 Ml Vial) Confirm Administered Dose 50 mg .ROUTE .STK-MED ONE Stop: 01/27/21 12:14 Rocuronium [place] (Rocuronium 50 Mg/5 Ml Vial) Confirm Administered Dose 50 mg .ROUTE .STK-MED ONE Stop: 01/27/21 14:23 - Exam Urinary Catheter Total Time: 1Days 21Hours General: Alert, Oriented, Cooperative Lungs: Normal Respiratory Effort Cardiovascular: Regular Rate, Regular Rhythm, No Murmurs GI/Abdominal Exam: Soft, No Distention, Tender Wound/Incisions: Healing Well, No Drainage - Patient Data Result Diagrams: 01/31/21 04:57 01/31/21 04:57 Sepsis Event Note - Evaluation Sepsis Screening Result: No Definite Risk - Focused Exam Vital Signs: Vital Signs Temp Pulse Resp BP BP Pulse Ox Pulse Ox 02/01/21 16:00 142/76 H 02/01/21 15:34 93 94 L 02/01/21 11:10 97.3 F 101 H 18 139/58 L 94 L 02/01/21 10:02 107 H 93 L 02/01/21 09:37 111 H 94 L 02/01/21 08:14 131/57 L 02/01/21 08:13 82 131/57 L 92 L 02/01/21 07:26 97.9 F 82 16 131/57 L 92 L 02/01/21 06:16 92 L - Problem List Review Problem List Initiated/Reviewed/Updated: No - My Orders Last 24 Hours: My Active Orders 01/31/21 17:19 oxyCODONE 10 mg PO Q4H PRN 01/31/21 17:20 HYDROmorphone [Dilaudid] 0.5 mg IVPUSH Q6H PRN 01/31/21 17:30 polyethylene glycoL 3350 [MiraLAX] 17 gm PO DAILY 02/01/21 Breakfast Regular Diet [DIET] 02/02/21 05:11 BASIC METABOLIC PANEL,BMP [CHEM] AM CBC WITH AUTO DIFF [HEME] AM MAGNESIUM [CHEM] AM PHOSPHORUS [CHEM] AM 02/03/21 05:11 BASIC METABOLIC PANEL,BMP [CHEM] AM CBC WITH AUTO DIFF [HEME] AM MAGNESIUM [CHEM] AM PHOSPHORUS [CHEM] AM 02/04/21 05:11 BASIC METABOLIC PANEL,BMP [CHEM] AM CBC WITH AUTO DIFF [HEME] AM MAGNESIUM [CHEM] AM PHOSPHORUS [CHEM] AM - Assessment Assessment:: POD5, right hemicolectomy for colonic perforation and abscess. Stable. - Plan Plan:: - Advance diet to regular today - GALEN drain removed. had serous fluid - Continue ambulation and incentive spirometer - Had bowel function now. Will continue reg diet - Will discontinue dilaudid and just do Po pain meds - Labs tomorrow If patient continues to do well, he may be discharged to home tomorrow.
[2021-02-01] MEDS: atorvaSTATin 40 MG Tab PO SCH (21:03)
[2021-02-01] MEDS: Tamsulosin 0.4 MG Cap.ER PO SCH (21:03)
[2021-02-02] MEDS: Trospium 20 MG Tab PO SCH ×2 (05:36→15:04)
[2021-02-02] MEDS: Acetaminophen 325 MG Tab PO SCH ×3 (05:37→17:00)
[2021-02-02] MEDS: oxyCODONE 5 MG Tab PO PRN ×4 (05:37→18:03)
[2021-02-02] MEDS: Aspirin 81 MG Tab.Chew PO SCH (09:52)
[2021-02-02] MEDS: Metoprolol Succinate 25 MG Tab.ER PO SCH (09:53)
[2021-02-02] MEDS: Lisinopril 20 MG Tab PO SCH (09:53)
[2021-02-02] MEDS: Pantoprazole 40 MG Tab.CR PO SCH (09:54)
[2021-02-02] MEDS: Polyethylene Glycol 3350 Powder 17 GM Packet PO SCH (09:55)
[2021-02-02] MEDS: Enoxaparin 40 MG/0.4 ML Syringe SUBCUT SCH (09:55)
[2021-02-02] MEDS: Fluticasone Propionate Nasal Spray 16 GM Bottle NASBOTH SCH (09:55)
[2021-02-02] MEDS: MIRABEGRON 50 MG PO SCH (09:55)
--- NOTE | 2021-02-02 12:39 | PCM.PN ---
- General Info Date of Service: 02/02/21 Admission Dx/Problem (Free Text): Admission Diagnosis/Problem Admission Diagnosis/Problem Abscess Subjective Update: Patient slept well. no issues. he ate dinner and tolerated it fine. Had a Bm yesterday. Functional Status: Reports: Pain Controlled, Tolerating Diet, Ambulating, Urinating - Review of Systems General: Reports: No Symptoms HEENT: Reports: No Symptoms Pulmonary: Reports: No Symptoms Cardiovascular: Reports: No Symptoms Gastrointestinal: Reports: Abdominal Pain Genitourinary: Reports: No Symptoms Musculoskeletal: Reports: No Symptoms Skin: Reports: No Symptoms - Patient Data Vitals - Most Recent: Last Vital Signs Temp 98.4 F 02/02/21 07:57 Pulse 88 02/02/21 09:53 Resp 14 02/02/21 07:57 BP 132/60 02/02/21 09:53 Pulse Ox 94 L 02/02/21 07:57 Weight - Most Recent: 103.464 kg I&O - Last 24 Hours: Intake & Output 02/01/21 02/02/21 02/02/21 22:59 06:59 14:59 Intake Total 1550 Output Total 300 200 Balance 1250 -200 Lab Results Last 24 Hours: Laboratory Results - last 24 hr 02/02/21 02/02/21 Range/Units 06:37 06:37 WBC 12.44 H (4.23-9.07) K/mm3 RBC 3.10 L (4.63-6.08) M/mm3 Hgb 9.8 L (13.7-17.5) gm/dl Hct 29.4 L (40.1-51.0) % MCV 94.8 H (79.0-92.2) fl MCH 31.6 (25.7-32.2) pg MCHC 33.3 (32.2-35.5) g/dl RDW Std Deviation 43.9 (35.1-43.9) fL Plt Count 279 (163-337) K/mm3 MPV 8.6 L (9.4-12.3) fl Neut % (Auto) 82.7 H (34.0-67.9) % Lymph % (Auto) 8.8 L (21.8-53.1) % [place] % (Auto) 6.5 (5.3-12.2) % Eos % (Auto) 1.0 (0.8-7.0) Baso % (Auto) 0.3 (0.1-1.2) % Neut # (Auto) 10.28 H (1.78-5.38) K/mm3 Lymph # (Auto) 1.09 L (1.32-3.57) K/mm3 [place] # (Auto) 0.81 (0.30-0.82) K/mm3 Eos # (Auto) 0.13 (0.04-0.54) K/mm3 Baso # (Auto) 0.04 (0.01-0.08) K/mm3 Manual Slide Review Normal smear Sodium 136 (136-145) mEq/L Potassium 3.9 (3.5-5.1) mEq/L Chloride 101 (98-107) mEq/L Carbon Dioxide 26 (21-32) mEq/L Anion Gap 12.9 (5-15) BUN 7 (7-18) mg/dL Creatinine 0.7 (0.7-1.3) mg/dL Est Cr Clr Drug Dosing 88.21 mL/min Estimated GFR (MDRD) > 60 (>60) mL/min BUN/Creatinine Ratio 10.0 L (14-18) Glucose 103 H (70-99) mg/dL Calcium 8.0 L (8.5-10.1) mg/dL Phosphorus 2.9 (2.6-4.7) mg/dL Magnesium 1.8 (1.8-2.4) mg/dL Med Orders - Current: Current Medications Acetaminophen (Acetaminophen 325 Mg Tab) 650 mg PO Q6H [facility] Last Admin: 02/02/21 11:37 Dose: 650 mg Documented by: Albuterol (Albuterol 6.7 Gm Inhaler) 0 gm INH Q6HR PRN PRN Reason: Shortness of Breath Artificial Tears (Carboxymethylcellulose Sodium 1% Ophth Gel 15 Ml Bottle) 0 ml EYEBOTH Q6H PRN PRN Reason: Dry Eyes Aspirin (Aspirin 81 Mg Tab.Chew) 81 mg PO DAILY [facility] Last Admin: 02/02/21 09:52 Dose: 81 mg Documented by: Atorvastatin Calcium (Atorvastatin 40 Mg Tab) 40 mg PO BEDTIME [facility] Last Admin: 02/01/21 21:03 Dose: 40 mg Documented by: Diphenhydramine HCl (Diphenhydramine 25 Mg Cap) 25 mg PO BEDTIME PRN PRN Reason: Shortness of Breath Enoxaparin Sodium (Enoxaparin 40 Mg/0.4 Ml Syringe) 40 mg SUBCUT DAILY [facility] Last Admin: 02/02/21 09:55 Dose: 40 mg Documented by: Fluticasone Propionate (Fluticasone Propionate Nasal [place] 16 Gm Bottle) 0 gm NASBOTH DAILY [facility] Last Admin: 02/02/21 09:55 Dose: 1 spray Documented by: Lisinopril (Lisinopril 20 Mg Tab) 20 mg PO DAILY [facility] Last Admin: 02/02/21 09:53 Dose: 20 mg Documented by: Metoprolol Succinate (Metoprolol Succinate 25 Mg Tab.Er) 25 mg PO DAILY [facility] Last Admin: 02/02/21 09:53 Dose: 25 mg Documented by: Ondansetron HCl (Ondansetron 4 Mg Tab.Dis) 4 mg PO Q4H PRN PRN Reason: nausea, able to take PO Ondansetron HCl (Ondansetron 4 Mg/2 Ml Sdv) 4 mg IV Q4H PRN PRN Reason: Nausea/Vomiting Oxycodone HCl (Oxycodone 5 Mg Tab) 10 mg PO Q4H PRN PRN Reason: Pain Last Admin: 02/02/21 09:52 Dose: 10 mg Documented by: Pantoprazole Sodium (Pantoprazole 40 Mg Tab.Cr) 40 mg PO DAILY [facility] Last Admin: 02/02/21 09:54 Dose: 40 mg Documented by: Mirabegron 50 Mg Tab .Er Patient's Own Med 0 each PO DAILY [facility] Last Admin: 02/02/21 09:55 Dose: Not Given Documented by: Polyethylene Glycol (Polyethylene Glycol 3350 Powder 17 Gm Packet) 17 gm PO DAILY [facility] Last Admin: 02/02/21 09:55 Dose: 17 gm Documented by: Sodium Chloride (Sodium Chloride 0.9% 10 Ml Syringe) 10 ml FLUSH ASDIRECTED PRN PRN Reason: Keep Vein Open Tamsulosin HCl (Tamsulosin 0.4 Mg Cap.Er) 0.4 mg PO BEDTIME [facility] Last Admin: 02/01/21 21:03 Dose: 0.4 mg Documented by: Trospium (Trospium 20 Mg Tab) 20 mg PO BIDAC [facility] Last Admin: 02/02/21 05:36 Dose: 20 mg Documented by: Discontinued Medications Acetaminophen (Acetaminophen 325 Mg Tab) 650 mg PO Q4H PRN PRN Reason: Pain (Mild 1-3)/fever Acetaminophen (Acetaminophen 325 Mg Tab) 650 mg PO Q6H [facility] Last Admin: 01/29/21 01:09 Dose: 650 mg Documented by: Albuterol (Albuterol 0.083% 2.5 Mg/3 Ml Neb Soln) 2.5 mg NEB ONETIME ONE Stop: 01/27/21 08:16 Last Admin: 01/27/21 08:21 Dose: 2.5 mg Documented by: Bisacodyl (Bisacodyl 10 Mg Supp) 10 mg RECTAL ONETIME ONE Stop: 01/31/21 17:31 Last Admin: 01/31/21 17:49 Dose: 10 mg Documented by: Bupivacaine HCl/Epinephrine Bitart (Bupivacaine 0.5%/Epinephrine 1:200,000 50 Ml Mdv) Confirm Administered Dose 100 ml .ROUTE .STK-MED ONE Stop: 01/27/21 09:48 Last Admin: 01/27/21 11:27 Dose: 30 ml Documented by: Dexamethasone (Dexamethasone 4 Mg/Ml 5 Ml Mdv) Confirm Administered Dose 20 mg .ROUTE .STK-MED ONE Stop: 01/27/21 08:34 Diphenhydramine HCl (Diphenhydramine 50 Mg/Ml Sdv) 25 mg IVPUSH BEDTIME PRN PRN Reason: Sleep Enoxaparin Sodium (Enoxaparin 30 Mg/0.3 Ml Syringe) 30 mg SUBCUT DAILY [facility] Last Admin: 01/29/21 09:29 Dose: 30 mg Documented by: Fentanyl (Fentanyl 250 Mcg/5 Ml Sdv) Confirm Administered Dose 250 mcg .ROUTE .STK-MED ONE Stop: 01/27/21 08:31 Fentanyl (Fentanyl 100 Mcg/2 Ml Sdv) Confirm Administered Dose 100 mcg .ROUTE .STK-MED ONE Stop: 01/27/21 14:39 Fentanyl (Fentanyl 100 Mcg/2 Ml Sdv) 50 mcg IVPUSH Q5M PRN PRN Reason: Pain Fentanyl (Fentanyl 100 Mcg/2 Ml Sdv) Confirm Administered Dose 100 mcg .ROUTE .STK-MED ONE Stop: 01/27/21 16:41 Fluticasone Propionate (Fluticasone Propionate Nasal [place] 16 Gm Bottle) gm NASBOTH DAILY [facility] Glycopyrrolate (Glycopyrrolate 0.2 Mg/Ml Sdv) Confirm Administered Dose 0.4 mg .ROUTE .STK-MED ONE Stop: 01/27/21 15:01 Hydromorphone HCl (Hydromorphone 0.5 Mg/0.5 Ml Syringe) 0.5 mg IVPUSH Q3H PRN PRN Reason: Pain (severe 7-10) Last Admin: 01/31/21 15:18 Dose: 0.5 mg Documented by: Hydromorphone HCl (Hydromorphone 0.5 Mg/0.5 Ml Syringe) 0.5 mg IVPUSH Q10M PRN PRN Reason: Pain (severe 7-10) Hydromorphone HCl (Hydromorphone 0.5 Mg/0.5 Ml Syringe) Confirm Administered Dose 0.5 mg .ROUTE .STK-MED ONE Stop: 01/27/21 16:08 Hydromorphone HCl (Hydromorphone 0.5 Mg/0.5 Ml Syringe) 0.5 mg IVPUSH Q6H PRN PRN Reason: Pain Last Admin: 02/01/21 14:32 Dose: 0.5 mg Documented by: Lactated Ringer's (Ringers, Lactated) 1,000 mls @ 999 mls/hr IV .BOLUS ONE Stop: 01/26/21 16:45 Last Admin: 01/26/21 16:12 Dose: 999 mls/hr Documented by: Lactated Ringer's (Ringers, Lactated) 1,000 mls @ 125 mls/hr IV ASDIRECTED [facility] Last Admin: 01/28/21 10:00 Dose: 125 mls/hr Documented by: Piperacillin Sod/Tazobactam (Sod 4.5 gm/ Sodium Chloride) 100 mls @ 25 mls/hr IV Q8H [facility] Last Admin: 02/01/21 08:14 Dose: 25 mls/hr Documented by: Piperacillin Sod/Tazobactam (Sod 4.5 gm/ Sodium Chloride) 100 mls @ 200 mls/hr IV ONETIME ONE Stop: 01/26/21 17:29 Last Admin: 01/26/21 16:34 Dose: 200 mls/hr Documented by: Potassium Chloride 10 meq/ (Premix) 100 mls @ 100 mls/hr IV Q1H [facility] Stop: 01/26/21 19:59 Last Admin: 01/26/21 19:50 Dose: Not Given Documented by: Potassium Chloride 10 meq/ (Premix) 100 mls @ 100 mls/hr IV Q1H [facility] Stop: 01/26/21 21:39 Last Admin: 01/26/21 19:51 Dose: Not Given Documented by: Potassium Chloride 10 meq/ (Premix) 100 mls @ 100 mls/hr IV Q1H [facility] Stop: 01/26/21 21:44 Last Admin: 01/26/21 21:36 Dose: 100 mls/hr Documented by: Potassium Chloride 10 meq/ (Premix) 100 mls @ 100 mls/hr IV Q1H [facility] Stop: 01/27/21 12:14 Last Admin: 01/27/21 15:52 Dose: Not Given Documented by: Lidocaine HCl (Xylocaine-Mpf 1%) Confirm Administered Dose 4 mls @ as directed .ROUTE .STK-MED ONE Stop: 01/27/21 08:31 Lactated Ringer's (Ringers, Lactated) Confirm Administered Dose 1,000 mls @ as directed .ROUTE .STK-MED ONE Stop: 01/27/21 08:31 Lactated Ringer's (Ringers, Lactated) Confirm Administered Dose 1,000 mls @ as directed .ROUTE .STK-MED ONE Stop: 01/27/21 12:27 Lactated Ringer's (Ringers, Lactated) Confirm Administered Dose 1,000 mls @ as directed .ROUTE .STK-MED ONE Stop: 01/27/21 14:08 Lactated Ringer's (Ringers, Lactated) Confirm Administered Dose 1,000 mls @ as directed .ROUTE .STK-MED ONE Stop: 01/27/21 16:12 Metoprolol Tartrate 5 mg/ (Sodium Chloride) 55 mls @ 100 mls/hr IV Q6H [facility] Last Admin: 01/27/21 19:58 Dose: Not Given Documented by: Pantoprazole Sodium 40 mg/ (Sodium Chloride) 100 mls @ 200 mls/hr IV DAILY [facility] Magnesium Sulfate 4 gm/ Premix 50 mls @ 12.5 mls/hr IV ONETIME ONE Stop: 01/28/21 14:57 Last Admin: 01/28/21 12:21 Dose: 12.5 mls/hr Documented by: Potassium Chloride/Dextrose/Sod Cl (D5 1/2 Ns W/ 20 Meq/L Kcl) 1,000 mls @ 75 mls/hr IV ASDIRECTED [facility] Last Admin: 01/29/21 09:30 Dose: 75 mls/hr Documented by: Potassium Chloride/Dextrose/Sod Cl (D5 1/2 Ns W/ 20 Meq/L Kcl) 1,000 mls @ 50 mls/hr IV ASDIRECTED [facility] Last Admin: 01/30/21 06:16 Dose: 50 mls/hr Documented by: Potassium Chloride 10 meq/ (Premix) 100 mls @ 100 mls/hr IV Q1H [facility] Stop: 01/30/21 17:59 Last Admin: 01/30/21 19:38 Dose: 100 mls/hr Documented by: Magnesium Sulfate/Dextrose 1 (gm/ Premix) 100 mls @ 100 mls/hr IV Q1H [facility] Stop: 01/30/21 18:59 Last Admin: 01/30/21 17:42 Dose: 100 mls/hr Documented by: Magnesium Sulfate 2 gm/ Premix 50 mls @ 25 mls/hr IV ONETIME ONE Stop: 01/31/21 13:29 Last Admin: 01/31/21 13:27 Dose: 25 mls/hr Documented by: Potassium Chloride 10 meq/ (Premix) 100 mls @ 100 mls/hr IV Q1H [facility] Stop: 01/31/21 10:59 Last Admin: 01/31/21 12:14 Dose: 100 mls/hr Documented by: Ketamine HCl (Ketamine 500 Mg/10 Ml Mdv) Confirm Administered Dose 500 mg .ROUTE .STK-MED ONE Stop: 01/27/21 11:40 Metoprolol Tartrate (Metoprolol Tartrate 5 Mg/5 Ml Sdv) Confirm Administered Dose 5 mg .ROUTE .STK-MED ONE Stop: 01/27/21 11:50 Metoprolol Tartrate (Metoprolol Tartrate 5 Mg/5 Ml Sdv) 5 mg IVPUSH Q6H [facility] Last Admin: 01/30/21 12:30 Dose: 5 mg Documented by: Midazolam HCl (Midazolam 1 Mg/Ml 2 Ml Sdv) Confirm Administered Dose 2 mg .ROUTE .STK-MED ONE Stop: 01/27/21 08:31 Neostigmine Methylsulfate (Neostigmine Methylsulfate 5 Mg/5 Ml Syringe) Confirm Administered Dose 5 mg .ROUTE .STK-MED ONE Stop: 01/27/21 15:01 Ondansetron HCl (Ondansetron 4 Mg/2 Ml Sdv) Confirm Administered Dose 4 mg .ROUTE .STK-MED ONE Stop: 01/27/21 08:31 Ondansetron HCl (Ondansetron 4 Mg/2 Ml Sdv) 4 mg IVPUSH ONETIME PRN PRN Reason: Nausea/Vomiting Ondansetron HCl (Ondansetron 4 Mg/2 Ml Sdv) Confirm Administered Dose 4 mg .ROUTE .STK-MED ONE Stop: 01/27/21 16:40 Oxycodone HCl (Oxycodone 5 Mg Tab) 5 mg PO Q4H PRN PRN Reason: Pain (moderate 4-6) Last Admin: 01/31/21 10:05 Dose: 5 mg Documented by: Pantoprazole Sodium (Pantoprazole 40 Mg Vial) 40 mg IVPUSH DAILY [facility] Last Admin: 01/30/21 08:11 Dose: 40 mg Documented by: Pantoprazole Sodium (Pantoprazole 40 Mg Vial) Confirm Administered Dose 40 mg .ROUTE .STK-MED ONE Stop: 01/28/21 08:41 Last Admin: 01/28/21 09:07 Dose: Not Given Documented by: Piperacillin Sod/Tazobactam Sod (Piperacillin/Tazobactam 4.5 Gm Advvial) Confirm Administered Dose 4.5 gm .ROUTE .STK-MED ONE Stop: 01/29/21 16:33 Last Admin: 01/29/21 16:40 Dose: Not Given Documented by: Polyethylene Glycol (Polyethylene Glycol 3350 Powder 17 Gm Packet) 17 gm PO DAILY [facility] Last Admin: 01/31/21 08:16 Dose: Not Given Documented by: Propofol (Propofol 200 Mg/20 Ml Sdv) Confirm Administered Dose 400 mg .ROUTE .STK-MED ONE Stop: 01/27/21 08:31 Propofol (Propofol 200 Mg/20 Ml Sdv) Confirm Administered Dose 200 mg .ROUTE .STK-MED ONE Stop: 01/27/21 12:42 Propofol (Propofol 200 Mg/20 Ml Sdv) Confirm Administered Dose 200 mg .ROUTE .STK-MED ONE Stop: 01/27/21 14:18 Propofol (Propofol 200 Mg/20 Ml Sdv) Confirm Administered Dose 200 mg .ROUTE .STK-MED ONE Stop: 01/27/21 16:11 Rocuronium [place] (Rocuronium 50 Mg/5 Ml Vial) Confirm Administered Dose 50 mg .ROUTE .STK-MED ONE Stop: 01/27/21 08:31 Rocuronium [place] (Rocuronium 50 Mg/5 Ml Vial) Confirm Administered Dose 50 mg .ROUTE .STK-MED ONE Stop: 01/27/21 12:14 Rocuronium [place] (Rocuronium 50 Mg/5 Ml Vial) Confirm Administered Dose 50 mg .ROUTE .STK-MED ONE Stop: 01/27/21 14:23 - Exam Urinary Catheter Total Time: 1Days 21Hours General: Alert, Oriented, Cooperative Lungs: Normal Respiratory Effort Cardiovascular: Regular Rate, Regular Rhythm, No Murmurs GI/Abdominal Exam: Soft, No Mass, Tender (mostly right abdomen) - Patient Data Lab Results Last 24 hrs: Laboratory Results - last 24 hr 02/02/21 02/02/21 Range/Units 06:37 06:37 WBC 12.44 H (4.23-9.07) K/mm3 RBC 3.10 L (4.63-6.08) M/mm3 Hgb 9.8 L (13.7-17.5) gm/dl Hct 29.4 L (40.1-51.0) % MCV 94.8 H (79.0-92.2) fl MCH 31.6 (25.7-32.2) pg MCHC 33.3 (32.2-35.5) g/dl RDW Std Deviation 43.9 (35.1-43.9) fL Plt Count 279 (163-337) K/mm3 MPV 8.6 L (9.4-12.3) fl Neut % (Auto) 82.7 H (34.0-67.9) % Lymph % (Auto) 8.8 L (21.8-53.1) % [place] % (Auto) 6.5 (5.3-12.2) % Eos % (Auto) 1.0 (0.8-7.0) Baso % (Auto) 0.3 (0.1-1.2) % Neut # (Auto) 10.28 H (1.78-5.38) K/mm3 Lymph # (Auto) 1.09 L (1.32-3.57) K/mm3 [place] # (Auto) 0.81 (0.30-0.82) K/mm3 Eos # (Auto) 0.13 (0.04-0.54) K/mm3 Baso # (Auto) 0.04 (0.01-0.08) K/mm3 Manual Slide Review Normal smear Sodium 136 (136-145) mEq/L Potassium 3.9 (3.5-5.1) mEq/L Chloride 101 (98-107) mEq/L Carbon Dioxide 26 (21-32) mEq/L Anion Gap 12.9 (5-15) BUN 7 (7-18) mg/dL Creatinine 0.7 (0.7-1.3) mg/dL Est Cr Clr Drug Dosing 88.21 mL/min Estimated GFR (MDRD) > 60 (>60) mL/min BUN/Creatinine Ratio 10.0 L (14-18) Glucose 103 H (70-99) mg/dL Calcium 8.0 L (8.5-10.1) mg/dL Phosphorus 2.9 (2.6-4.7) mg/dL Magnesium 1.8 (1.8-2.4) mg/dL Result Diagrams: 02/02/21 06:37 02/02/21 06:37 Sepsis Event Note - Evaluation Sepsis Screening Result: No Definite Risk - Focused Exam Vital Signs: Vital Signs Temp Pulse Resp BP Pulse Ox 02/02/21 09:53 88 132/60 02/02/21 07:57 98.4 F 88 14 132/60 94 L 02/02/21 05:36 98.4 F 90 16 145/56 H 92 L - Problem List Review Problem List Initiated/Reviewed/Updated: No - My Orders Last 24 Hours: My Active Orders 02/03/21 05:11 BASIC METABOLIC PANEL,BMP [CHEM] AM CBC WITH AUTO DIFF [HEME] AM MAGNESIUM [CHEM] AM PHOSPHORUS [CHEM] AM 02/04/21 05:11 BASIC METABOLIC PANEL,BMP [CHEM] AM CBC WITH AUTO DIFF [HEME] AM MAGNESIUM [CHEM] AM PHOSPHORUS [CHEM] AM - Assessment Assessment:: POD6, right hemicolectomy for colonic perforation and abscess. tolerating diet, ambulating, on room air. - Plan Plan:: - continue reg diet - Continue ambulation and incentive spirometer - Patient feels well. If he continue to do well, we may discharge him to home later today.
--- NOTE | 2021-02-02 17:49 | PCM.DCSUM1 ---
Discharge Summary - Hospital Course Free Text/Narrative:: Patient underwent a colonoscopy on 01/23/2021 and sustained a perforation which was confirmed on CT imaging. The patient underwent right hemicolectomy on 01/27/2021. He progressed well post operatively. He tolerated reg diet, started having bowel movements and vitals remained stable. He was discharged to home in stable condition. He will return to clinic next week for follow up. Diagnosis: Stroke: No - Discharge Data Discharge Date: 02/02/21 Discharge Disposition: Home, Self-Care 01 Condition: Good - Referral to Home Health Primary Care Physician: PCP Not In Area - Patient Summary/Data Consults: Consultations 01/28/21 11:27 PT Evaluation and Treatment [CONS] Routine - Patient Instructions Diet: Heart Healthy Diet Activity: No Lifting Over 20 Pounds (for 6 weeks) Driving: Do Not Drive (until off opioid pain medications) Showering/Bathing: May Shower Wound/Incision Care: Keep Operative Site/Wound Site Clean and Dry Notify Provider of: Fever, Increased Pain, Swelling and Redness, Drainage, Nausea and/or Vomiting Other/Special Instructions: - Patient can use Tylenol and/or Ibuprofen for pain. If pain gets worse, use the prescribed opioid pain medication. - Use Miralax when taking opioid pain medications - Discharge Plan *PRESCRIPTION DRUG MONITORING PROGRAM REVIEWED*: No *COPY OF PRESCRIPTION DRUG MONITORING REPORT IN PATIENT LINDA: No Prescriptions/Med Rec: polyethylene glycoL 3350 [MiraLAX] 17 gm PO DAILY 30 Days #30 packet oxyCODONE 10 mg PO Q8HR PRN 4 Days #24 tablet PRN Reason: Pain Home Medications: Home Meds Albuterol Sulfate [Albuterol Sulfate HFA] 2 puff INH Q6HR PRN 01/26/21 [History] Aspirin 81 mg PO DAILY 01/26/21 [History] Cholecalciferol (Vitamin D3) [Vitamin D3] 25 mcg PO DAILY 01/26/21 [History] Dextran 70/Hypromellose [Artificial Tears Eye Drops] 1 drop EYEBOTH Q6H PRN 01/26/21 [History] Metoprolol Succinate [Toprol XL] 25 mg PO DAILY 01/26/21 [History] Mirabegron [Myrbetriq] 50 mg PO DAILY 01/26/21 [History] Multivitamin with Minerals [Multiple Vitamin] 1 tab PO DAILY 01/26/21 [History] Pantoprazole [ProTONIX] 40 mg PO DAILY 01/26/21 [History] Tamsulosin [Flomax] 0.4 mg PO BEDTIME 01/26/21 [History] Ubidecarenone [Coenzyme Q10] 10 mg PO DAILY 01/26/21 [History] atorvaSTATin [Lipitor] 40 mg PO BEDTIME 01/26/21 [History] diphenhydrAMINE [Benadryl] 25 mg PO BEDTIME PRN 01/26/21 [History] lisinopriL [Lisinopril] 20 mg PO DAILY 01/26/21 [History] Fluticasone Propionate [Flonase] 1 spray NASBOTH DAILY 01/29/21 [History] Tolterodine Tartrate [Detrol LA] 4 mg PO DAILY 01/30/21 [History] Acetaminophen [Tylenol] 650 mg PO Q6H #0 tablet 02/02/21 [Rx] oxyCODONE 10 mg PO Q8HR PRN 4 Days #24 tablet 02/02/21 [Rx] polyethylene glycoL 3350 [MiraLAX] 17 gm PO DAILY 30 Days #30 packet 02/02/21 [Rx] Oxygen Therapy Mode: Room Air Patient Handouts: Open Colectomy, Care After, Open Colectomy Referrals: Randy Bangura [Other] (This is patients Primary Doctor at the [facility], follow up as needed.) Nakia Carvalho MD [Physician] - (Follow up in clinic 02/08/2021) - Discharge Summary/Plan Comment DC Time >30 min.: Yes - General Info Date of Service: 02/02/21 Admission Dx/Problem (Free Text: Admission Diagnosis/Problem Admission Diagnosis/Problem Abscess Subjective Update: Tolerating diet, ambulating, urinating. Pain controlled with oral pills. Functional Status: Reports: Pain Controlled, Tolerating Diet, Ambulating, Urinating - Review of Systems General: Reports: No Symptoms HEENT: Reports: No Symptoms Pulmonary: Reports: No Symptoms Cardiovascular: Reports: No Symptoms Gastrointestinal: Reports: Abdominal Pain (post op) Genitourinary: Reports: No Symptoms Musculoskeletal: Reports: No Symptoms Skin: Reports: No Symptoms - Patient Data Vitals - Most Recent: Last Vital Signs Temp 99.0 F 02/02/21 12:21 Pulse 94 02/02/21 12:21 Resp 14 02/02/21 12:21 BP 139/61 02/02/21 12:21 Pulse Ox 90 L 02/02/21 12:21 Weight - Most Recent: 103.464 kg I&O - Last 24 hours: Intake & Output 02/02/21 02/02/21 02/02/21 06:59 14:59 22:59 Intake Total 1120 Output Total 200 900 Balance -200 220 Lab Results - Last 24 hrs: Laboratory Results - last 24 hr 02/02/21 02/02/21 Range/Units 06:37 06:37 WBC 12.44 H (4.23-9.07) K/mm3 RBC 3.10 L (4.63-6.08) M/mm3 Hgb 9.8 L (13.7-17.5) gm/dl Hct 29.4 L (40.1-51.0) % MCV 94.8 H (79.0-92.2) fl MCH 31.6 (25.7-32.2) pg MCHC 33.3 (32.2-35.5) g/dl RDW Std Deviation 43.9 (35.1-43.9) fL Plt Count 279 (163-337) K/mm3 MPV 8.6 L (9.4-12.3) fl Neut % (Auto) 82.7 H (34.0-67.9) % Lymph % (Auto) 8.8 L (21.8-53.1) % [place] % (Auto) 6.5 (5.3-12.2) % Eos % (Auto) 1.0 (0.8-7.0) Baso % (Auto) 0.3 (0.1-1.2) % Neut # (Auto) 10.28 H (1.78-5.38) K/mm3 Lymph # (Auto) 1.09 L (1.32-3.57) K/mm3 [place] # (Auto) 0.81 (0.30-0.82) K/mm3 Eos # (Auto) 0.13 (0.04-0.54) K/mm3 Baso # (Auto) 0.04 (0.01-0.08) K/mm3 Manual Slide Review Normal smear Sodium 136 (136-145) mEq/L Potassium 3.9 (3.5-5.1) mEq/L Chloride 101 (98-107) mEq/L Carbon Dioxide 26 (21-32) mEq/L Anion Gap 12.9 (5-15) BUN 7 (7-18) mg/dL Creatinine 0.7 (0.7-1.3) mg/dL Est Cr Clr Drug Dosing 88.21 mL/min Estimated GFR (MDRD) > 60 (>60) mL/min BUN/Creatinine Ratio 10.0 L (14-18) Glucose 103 H (70-99) mg/dL Calcium 8.0 L (8.5-10.1) mg/dL Phosphorus 2.9 (2.6-4.7) mg/dL Magnesium 1.8 (1.8-2.4) mg/dL Med Orders - Current: Current Medications Acetaminophen (Acetaminophen 325 Mg Tab) 650 mg PO Q6H [facility] Last Admin: 02/02/21 17:00 Dose: 650 mg Documented by: Albuterol (Albuterol 6.7 Gm Inhaler) 0 gm INH Q6HR PRN PRN Reason: Shortness of Breath Artificial Tears (Carboxymethylcellulose Sodium 1% Ophth Gel 15 Ml Bottle) 0 ml EYEBOTH Q6H PRN PRN Reason: Dry Eyes Aspirin (Aspirin 81 Mg Tab.Chew) 81 mg PO DAILY [facility] Last Admin: 02/02/21 09:52 Dose: 81 mg Documented by: Atorvastatin Calcium (Atorvastatin 40 Mg Tab) 40 mg PO BEDTIME [facility] Last Admin: 02/01/21 21:03 Dose: 40 mg Documented by: Diphenhydramine HCl (Diphenhydramine 25 Mg Cap) 25 mg PO BEDTIME PRN PRN Reason: Shortness of Breath Enoxaparin Sodium (Enoxaparin 40 Mg/0.4 Ml Syringe) 40 mg SUBCUT DAILY [facility] Last Admin: 02/02/21 09:55 Dose: 40 mg Documented by: Fluticasone Propionate (Fluticasone Propionate Nasal [place] 16 Gm Bottle) 0 gm NASBOTH DAILY [facility] Last Admin: 02/02/21 09:55 Dose: 1 spray Documented by: Lisinopril (Lisinopril 20 Mg Tab) 20 mg PO DAILY [facility] Last Admin: 02/02/21 09:53 Dose: 20 mg Documented by: Metoprolol Succinate (Metoprolol Succinate 25 Mg Tab.Er) 25 mg PO DAILY [facility] Last Admin: 02/02/21 09:53 Dose: 25 mg Documented by: Ondansetron HCl (Ondansetron 4 Mg Tab.Dis) 4 mg PO Q4H PRN PRN Reason: nausea, able to take PO Ondansetron HCl (Ondansetron 4 Mg/2 Ml Sdv) 4 mg IV Q4H PRN PRN Reason: Nausea/Vomiting Oxycodone HCl (Oxycodone 5 Mg Tab) 10 mg PO Q4H PRN PRN Reason: Pain Last Admin: 02/02/21 13:55 Dose: 10 mg Documented by: Pantoprazole Sodium (Pantoprazole 40 Mg Tab.Cr) 40 mg PO DAILY [facility] Last Admin: 02/02/21 09:54 Dose: 40 mg Documented by: Mirabegron 50 Mg Tab .Er Patient's Own Med 0 each PO DAILY [facility] Last Admin: 02/02/21 09:55 Dose: Not Given Documented by: Polyethylene Glycol (Polyethylene Glycol 3350 Powder 17 Gm Packet) 17 gm PO DAILY [facility] Last Admin: 02/02/21 09:55 Dose: 17 gm Documented by: Sodium Chloride (Sodium Chloride 0.9% 10 Ml Syringe) 10 ml FLUSH ASDIRECTED PRN PRN Reason: Keep Vein Open Tamsulosin HCl (Tamsulosin 0.4 Mg Cap.Er) 0.4 mg PO BEDTIME [facility] Last Admin: 02/01/21 21:03 Dose: 0.4 mg Documented by: Trospium (Trospium 20 Mg Tab) 20 mg PO BIDAC [facility] Last Admin: 02/02/21 15:04 Dose: 20 mg Documented by: Discontinued Medications Acetaminophen (Acetaminophen 325 Mg Tab) 650 mg PO Q4H PRN PRN Reason: Pain (Mild 1-3)/fever Acetaminophen (Acetaminophen 325 Mg Tab) 650 mg PO Q6H [facility] Last Admin: 01/29/21 01:09 Dose: 650 mg Documented by: Albuterol (Albuterol 0.083% 2.5 Mg/3 Ml Neb Soln) 2.5 mg NEB ONETIME ONE Stop: 01/27/21 08:16 Last Admin: 01/27/21 08:21 Dose: 2.5 mg Documented by: Bisacodyl (Bisacodyl 10 Mg Supp) 10 mg RECTAL ONETIME ONE Stop: 01/31/21 17:31 Last Admin: 01/31/21 17:49 Dose: 10 mg Documented by: Bupivacaine HCl/Epinephrine Bitart (Bupivacaine 0.5%/Epinephrine 1:200,000 50 Ml Mdv) Confirm Administered Dose 100 ml .ROUTE .STK-MED ONE Stop: 01/27/21 09:48 Last Admin: 01/27/21 11:27 Dose: 30 ml Documented by: Dexamethasone (Dexamethasone 4 Mg/Ml 5 Ml Mdv) Confirm Administered Dose 20 mg .ROUTE .STK-MED ONE Stop: 01/27/21 08:34 Diphenhydramine HCl (Diphenhydramine 50 Mg/Ml Sdv) 25 mg IVPUSH BEDTIME PRN PRN Reason: Sleep Enoxaparin Sodium (Enoxaparin 30 Mg/0.3 Ml Syringe) 30 mg SUBCUT DAILY [facility] Last Admin: 01/29/21 09:29 Dose: 30 mg Documented by: Fentanyl (Fentanyl 250 Mcg/5 Ml Sdv) Confirm Administered Dose 250 mcg .ROUTE .STK-MED ONE Stop: 01/27/21 08:31 Fentanyl (Fentanyl 100 Mcg/2 Ml Sdv) Confirm Administered Dose 100 mcg .ROUTE .STK-MED ONE Stop: 01/27/21 14:39 Fentanyl (Fentanyl 100 Mcg/2 Ml Sdv) 50 mcg IVPUSH Q5M PRN PRN Reason: Pain Fentanyl (Fentanyl 100 Mcg/2 Ml Sdv) Confirm Administered Dose 100 mcg .ROUTE .STK-MED ONE Stop: 01/27/21 16:41 Fluticasone Propionate (Fluticasone Propionate Nasal [place] 16 Gm Bottle) gm NASBOTH DAILY [facility] Glycopyrrolate (Glycopyrrolate 0.2 Mg/Ml Sdv) Confirm Administered Dose 0.4 mg .ROUTE .STK-MED ONE Stop: 01/27/21 15:01 Hydromorphone HCl (Hydromorphone 0.5 Mg/0.5 Ml Syringe) 0.5 mg IVPUSH Q3H PRN PRN Reason: Pain (severe 7-10) Last Admin: 01/31/21 15:18 Dose: 0.5 mg Documented by: Hydromorphone HCl (Hydromorphone 0.5 Mg/0.5 Ml Syringe) 0.5 mg IVPUSH Q10M PRN PRN Reason: Pain (severe 7-10) Hydromorphone HCl (Hydromorphone 0.5 Mg/0.5 Ml Syringe) Confirm Administered Dose 0.5 mg .ROUTE .STK-MED ONE Stop: 01/27/21 16:08 Hydromorphone HCl (Hydromorphone 0.5 Mg/0.5 Ml Syringe) 0.5 mg IVPUSH Q6H PRN PRN Reason: Pain Last Admin: 02/01/21 14:32 Dose: 0.5 mg Documented by: Lactated Ringer's (Ringers, Lactated) 1,000 mls @ 999 mls/hr IV .BOLUS ONE Stop: 01/26/21 16:45 Last Admin: 01/26/21 16:12 Dose: 999 mls/hr Documented by: Lactated Ringer's (Ringers, Lactated) 1,000 mls @ 125 mls/hr IV ASDIRECTED [facility] Last Admin: 01/28/21 10:00 Dose: 125 mls/hr Documented by: Piperacillin Sod/Tazobactam (Sod 4.5 gm/ Sodium Chloride) 100 mls @ 25 mls/hr IV Q8H [facility] Last Admin: 02/01/21 08:14 Dose: 25 mls/hr Documented by: Piperacillin Sod/Tazobactam (Sod 4.5 gm/ Sodium Chloride) 100 mls @ 200 mls/hr IV ONETIME ONE Stop: 01/26/21 17:29 Last Admin: 01/26/21 16:34 Dose: 200 mls/hr Documented by: Potassium Chloride 10 meq/ (Premix) 100 mls @ 100 mls/hr IV Q1H [facility] Stop: 01/26/21 19:59 Last Admin: 01/26/21 19:50 Dose: Not Given Documented by: Potassium Chloride 10 meq/ (Premix) 100 mls @ 100 mls/hr IV Q1H [facility] Stop: 01/26/21 21:39 Last Admin: 01/26/21 19:51 Dose: Not Given Documented by: Potassium Chloride 10 meq/ (Premix) 100 mls @ 100 mls/hr IV Q1H [facility] Stop: 01/26/21 21:44 Last Admin: 01/26/21 21:36 Dose: 100 mls/hr Documented by: Potassium Chloride 10 meq/ (Premix) 100 mls @ 100 mls/hr IV Q1H [facility] Stop: 01/27/21 12:14 Last Admin: 01/27/21 15:52 Dose: Not Given Documented by: Lidocaine HCl (Xylocaine-Mpf 1%) Confirm Administered Dose 4 mls @ as directed .ROUTE .STK-MED ONE Stop: 01/27/21 08:31 Lactated Ringer's (Ringers, Lactated) Confirm Administered Dose 1,000 mls @ as directed .ROUTE .STK-MED ONE Stop: 01/27/21 08:31 Lactated Ringer's (Ringers, Lactated) Confirm Administered Dose 1,000 mls @ as directed .ROUTE .STK-MED ONE Stop: 01/27/21 12:27 Lactated Ringer's (Ringers, Lactated) Confirm Administered Dose 1,000 mls @ as directed .ROUTE .STK-MED ONE Stop: 01/27/21 14:08 Lactated Ringer's (Ringers, Lactated) Confirm Administered Dose 1,000 mls @ as directed .ROUTE .STK-MED ONE Stop: 01/27/21 16:12 Metoprolol Tartrate 5 mg/ (Sodium Chloride) 55 mls @ 100 mls/hr IV Q6H [facility] Last Admin: 01/27/21 19:58 Dose: Not Given Documented by: Pantoprazole Sodium 40 mg/ (Sodium Chloride) 100 mls @ 200 mls/hr IV DAILY [facility] Magnesium Sulfate 4 gm/ Premix 50 mls @ 12.5 mls/hr IV ONETIME ONE Stop: 01/28/21 14:57 Last Admin: 01/28/21 12:21 Dose: 12.5 mls/hr Documented by: Potassium Chloride/Dextrose/Sod Cl (D5 1/2 Ns W/ 20 Meq/L Kcl) 1,000 mls @ 75 mls/hr IV ASDIRECTED [facility] Last Admin: 01/29/21 09:30 Dose: 75 mls/hr Documented by: Potassium Chloride/Dextrose/Sod Cl (D5 1/2 Ns W/ 20 Meq/L Kcl) 1,000 mls @ 50 mls/hr IV ASDIRECTED [facility] Last Admin: 01/30/21 06:16 Dose: 50 mls/hr Documented by: Potassium Chloride 10 meq/ (Premix) 100 mls @ 100 mls/hr IV Q1H [facility] Stop: 01/30/21 17:59 Last Admin: 01/30/21 19:38 Dose: 100 mls/hr Documented by: Magnesium Sulfate/Dextrose 1 (gm/ Premix) 100 mls @ 100 mls/hr IV Q1H [facility] Stop: 01/30/21 18:59 Last Admin: 01/30/21 17:42 Dose: 100 mls/hr Documented by: Magnesium Sulfate 2 gm/ Premix 50 mls @ 25 mls/hr IV ONETIME ONE Stop: 01/31/21 13:29 Last Admin: 01/31/21 13:27 Dose: 25 mls/hr Documented by: Potassium Chloride 10 meq/ (Premix) 100 mls @ 100 mls/hr IV Q1H [facility] Stop: 01/31/21 10:59 Last Admin: 01/31/21 12:14 Dose: 100 mls/hr Documented by: Ketamine HCl (Ketamine 500 Mg/10 Ml Mdv) Confirm Administered Dose 500 mg .ROUTE .STK-MED ONE Stop: 01/27/21 11:40 Metoprolol Tartrate (Metoprolol Tartrate 5 Mg/5 Ml Sdv) Confirm Administered Dose 5 mg .ROUTE .STK-MED ONE Stop: 01/27/21 11:50 Metoprolol Tartrate (Metoprolol Tartrate 5 Mg/5 Ml Sdv) 5 mg IVPUSH Q6H [facility] Last Admin: 01/30/21 12:30 Dose: 5 mg Documented by: Midazolam HCl (Midazolam 1 Mg/Ml 2 Ml Sdv) Confirm Administered Dose 2 mg .ROUTE .STK-MED ONE Stop: 01/27/21 08:31 Neostigmine Methylsulfate (Neostigmine Methylsulfate 5 Mg/5 Ml Syringe) Confirm Administered Dose 5 mg .ROUTE .STK-MED ONE Stop: 01/27/21 15:01 Ondansetron HCl (Ondansetron 4 Mg/2 Ml Sdv) Confirm Administered Dose 4 mg .ROUTE .STK-MED ONE Stop: 01/27/21 08:31 Ondansetron HCl (Ondansetron 4 Mg/2 Ml Sdv) 4 mg IVPUSH ONETIME PRN PRN Reason: Nausea/Vomiting Ondansetron HCl (Ondansetron 4 Mg/2 Ml Sdv) Confirm Administered Dose 4 mg .ROUTE .STK-MED ONE Stop: 01/27/21 16:40 Oxycodone HCl (Oxycodone 5 Mg Tab) 5 mg PO Q4H PRN PRN Reason: Pain (moderate 4-6) Last Admin: 01/31/21 10:05 Dose: 5 mg Documented by: Pantoprazole Sodium (Pantoprazole 40 Mg Vial) 40 mg IVPUSH DAILY [facility] Last Admin: 01/30/21 08:11 Dose: 40 mg Documented by: Pantoprazole Sodium (Pantoprazole 40 Mg Vial) Confirm Administered Dose 40 mg .ROUTE .STK-MED ONE Stop: 01/28/21 08:41 Last Admin: 01/28/21 09:07 Dose: Not Given Documented by: Piperacillin Sod/Tazobactam Sod (Piperacillin/Tazobactam 4.5 Gm Advvial) Confirm Administered Dose 4.5 gm .ROUTE .STK-MED ONE Stop: 01/29/21 16:33 Last Admin: 01/29/21 16:40 Dose: Not Given Documented by: Polyethylene Glycol (Polyethylene Glycol 3350 Powder 17 Gm Packet) 17 gm PO DAILY [facility] Last Admin: 01/31/21 08:16 Dose: Not Given Documented by: Propofol (Propofol 200 Mg/20 Ml Sdv) Confirm Administered Dose 400 mg .ROUTE .STK-MED ONE Stop: 01/27/21 08:31 Propofol (Propofol 200 Mg/20 Ml Sdv) Confirm Administered Dose 200 mg .ROUTE .STK-MED ONE Stop: 01/27/21 12:42 Propofol (Propofol 200 Mg/20 Ml Sdv) Confirm Administered Dose 200 mg .ROUTE .STK-MED ONE Stop: 01/27/21 14:18 Propofol (Propofol 200 Mg/20 Ml Sdv) Confirm Administered Dose 200 mg .ROUTE .STK-MED ONE Stop: 01/27/21 16:11 Rocuronium [place] (Rocuronium 50 Mg/5 Ml Vial) Confirm Administered Dose 50 mg .ROUTE .STK-MED ONE Stop: 01/27/21 08:31 Rocuronium [place] (Rocuronium 50 Mg/5 Ml Vial) Confirm Administered Dose 50 mg .ROUTE .STK-MED ONE Stop: 01/27/21 12:14 Rocuronium [place] (Rocuronium 50 Mg/5 Ml Vial) Confirm Administered Dose 50 mg .ROUTE .STK-MED ONE Stop: 01/27/21 14:23 - Exam General: Reports: Alert, Oriented, Cooperative Lungs: Reports: Normal Respiratory Effort Cardiovascular: Reports: Regular Rate, Regular Rhythm, No Murmurs GI/Abdominal Exam: Soft, No Abnormal Bruit, Distended (mildly), Tender (appropriately)
--- NOTE | 2021-02-10 13:25 | PCM.SN.2 ---
- Free Text/Narrative Note: This is an interpretation of the EKG from 01/26/2021: - Sinus Rhythm - RBBB - Non-specific ST depression in the anterior leads. - Non-specific abnormal T-waves in the anterolateral leads
== END 2021-02-02 18:25 | disposition home or self-care (01) | DRG 329 ==
LOC: JD.MS 14:55
PROVIDERS: ADMIT Surgery; ATTEND Surgery
PROC: 0DTF4ZZ Resection of Right Large Intestine, Percutaneous Endoscopic Approach (ICD-10-PCS; principal; 2021-01-27)
DX: K63.1 Perforation of intestine (nontraumatic) (principal); K55.041 Focal (segmental) acute infarction of large intestine; K68.19 Other retroperitoneal abscess; E78.00 Pure hypercholesterolemia, unspecified; E66.9 Obesity, unspecified; Z20.822 Contact with and (suspected) exposure to COVID-19; I25.2 Old myocardial infarction; Z85.46 Personal history of malignant neoplasm of prostate; Z85.51 Personal history of malignant neoplasm of bladder; Z79.82 Long term (current) use of aspirin; Z98.49 Cataract extraction status, unspecified eye; Z79.899 Other long term (current) drug therapy; Z87.891 Personal history of nicotine dependence; Z68.34 Body mass index [BMI] 34.0-34.9, adult
CPT/HCPCS: 00790; 36415; 80048; 83735; 84100; 85025; 86850; 86900; 86901; 88307; 93005; 94640; 94761; 94762; 97110-GP; 97161-GP; 99100; 99140; A9270-GY; C9113; J0330; J1100; J1170; J1650; J2250; J2405; J2543; J2704; J2710; J3010; J3475; J3480; J3490; J7120; U0002

== ENCOUNTER 2021-03-28 15:48 | Inpatient (IN) | payer OTHER, MEDICARE ==
[2021-03-28] MEDS ORDERED: Sodium Chloride 0.9% 10 ML Syringe FLUSH PRN (16:20)
--- NOTE | 2021-03-28 16:37 | EDM.PDOC ---
ED HPI GENERAL MEDICAL PROBLEM - General Chief Complaint: Abdominal Pain Stated Complaint: ABDOMINAL PAIN Time Seen by Provider: 03/28/21 16:19 Source of Information: Reports: Patient, RN Notes Reviewed History Limitations: Reports: No Limitations - History of Present Illness INITIAL COMMENTS - FREE TEXT/NARRATIVE: Patient is a 75-year-old male who presents to the ER for evaluation of a possible ileus or early small bowel obstruction. Patient has a history of perforated bowel due to a colonoscopy in January 2021. This did result in a hemicolectomy, and an abdominal abscess. He did have a drain placed, and the drain was removed last week. Patient came into the surgical clinic today at [facility], complaining of some abdominal pain. States he has had no nausea and vomiting, and he still able to have small bowel movements but he cannot really remember the last time he passed gas. Laboratory evaluation was carried out and his CBC demonstrated no elevated white count (11.0 w/ 59% neuts), metabolic panel was essentially unremarkable as well but his CRP was markedly elevated, the provider noted it was 98. He did have labs taking 1 day prior and the patient's white count was 8.4 and neutrophil count was 49.7%. Apparently the CRP 1 day prior was 15. He also had a procalcitonin performed, 1 day ago and this was 0.03, which appears to be within normal limits for their reference ranges. The patient's initial colonoscopy with perforation was performed by Dr. Carvalho, and the patient has been doctoring since then for surgical issues with Dr. Stephens but Dr. Stephens was out of the office and the patient did see Tawana Lee, surgical AGRICULTURE LABORER at the [facility]. She did call over, and wanted the patient admitted for the ileus, with pain meds, fluids, and have the patient stay n.p.o. to see if this resolves itself. Patient himself states that he has had no fevers or chills. Right Lower Abdomen Pain Score (Numeric/FACES): 5 - Related Data Allergies Allergy/AdvReac Type Severity Reaction Status Date / Time seasonal AdvReac Other Uncoded 03/28/21 16:03 Home Meds: Home Meds Albuterol Sulfate [Albuterol Sulfate HFA] 2 puff INH Q6HR PRN 01/26/21 [History] Cholecalciferol (Vitamin D3) [Vitamin D3] 25 mcg PO DAILY 01/26/21 [History] Dextran 70/Hypromellose [Artificial Tears Eye Drops] 1 drop EYEBOTH Q6H PRN 01/26/21 [History] Metoprolol Succinate [Toprol XL] 25 mg PO DAILY 01/26/21 [History] Mirabegron [Myrbetriq] 50 mg PO DAILY 01/26/21 [History] Pantoprazole [ProTONIX] 40 mg PO DAILY 01/26/21 [History] Tamsulosin [Flomax] 0.4 mg PO BEDTIME 01/26/21 [History] Ubidecarenone [Coenzyme Q10] 10 mg PO DAILY 01/26/21 [History] atorvaSTATin [Lipitor] 40 mg PO BEDTIME 01/26/21 [History] diphenhydrAMINE [Benadryl] 25 mg PO BEDTIME 01/26/21 [History] lisinopriL [Lisinopril] 20 mg PO DAILY 01/26/21 [History] Fluticasone Propionate [Flonase] 1 spray NASBOTH DAILY 01/29/21 [History] Tolterodine Tartrate [Detrol LA] 4 mg PO DAILY 01/30/21 [History] Acetaminophen [Tylenol] 650 mg PO Q6H PRN 03/28/21 [History] Amoxicillin/Potassium Clav [Amox-Clav 875-125 mg Tablet] 1 tab PO DAILY 03/28/21 [History] Aspirin [Aspirin EC] 81 mg PO DAILY 03/28/21 [History] Cetirizine HCl 10 mg PO DAILY 03/28/21 [History] Famotidine 10 mg PO BID 03/28/21 [History] Past Medical History HEENT History: Reports: Cataract Other HEENT History: Glasses Cardiovascular History: Reports: High Cholesterol, Hypertension, [place] Respiratory History: Reports: SOB Other Genitourinary History: bladder and prostate cancer. urgency and frequency Musculoskeletal History: Reports: Arthritis Other Musculoskeletal History: occassional back pain Endocrine/Metabolic History: Reports: Obesity/BMI 30+ Other Endocrine/Metabolic History: Pre-DM Oncologic (Cancer) History: Reports: Bladder, Prostate - Infectious Disease History Infectious Disease History: Reports: Chicken Pox, Measles, Mumps - Past Surgical History HEENT Surgical History: Reports: Cataract Surgery Cardiovascular Surgical History: Reports: Coronary Artery Stent GI Surgical History: Reports: Appendectomy, Colonoscopy Other GI Surgeries/Procedures: Polyp biopsied, perforated bowel, hemicolectomy Male Surgical History: Reports: Prostate Biopsy Other Male Surgeries/Procedures: Surgery on bladder and prostate for cancer. Social & Family History - Tobacco Use Tobacco Use Status *Q: Never Tobacco User - Caffeine Use Caffeine Use: Reports: None - Recreational Drug Use Recreational Drug Use: No ED ROS GENERAL - Review of Systems Review Of Systems: Comprehensive ROS is negative, except as noted in HPI. ED EXAM, GI/ABD - Physical Exam Exam: See Below Exam Limited By: No Limitations General Appearance: Alert, WD/WN, No Apparent Distress Respiratory/Chest: No Respiratory Distress, Lungs Clear, Normal Breath Sounds, No Accessory Muscle Use, Chest Non-Tender Cardiovascular: Normal Peripheral Pulses, Regular Rate, Rhythm, No Edema GI/Abdominal Exam: Normal Bowel Sounds, Soft, No Mass, Distended (generalized with slight tenderness to percussion). No: Tender Extremities: Normal Inspection, Normal Capillary Refill Neurological: Alert, Oriented, Normal Cognition, No Motor/Sensory Deficits Psychiatric: Normal Affect, Normal Mood Skin Exam: Warm, Dry, Intact, Normal Color, No Rash Course - Vital Signs Last Recorded V/S: Last Vital Signs Temp 97.5 F 03/28/21 15:59 Pulse 95 03/28/21 15:59 Resp 18 03/28/21 15:59 BP 116/64 03/28/21 15:59 Pulse Ox 95 03/28/21 15:59 - Orders/Labs/Meds Orders: Active Orders 24 hr Category Date Time Status Peripheral IV Care [RC] . DIRECTED Care 03/28/21 16:20 Active Sodium Chloride 0.9% [Normal Saline] 1,000 ml Med 03/28/21 16:52 Active IV ONETIME Sodium Chloride 0.9% [Saline Flush] Med 03/28/21 16:20 Active 10 ml FLUSH ASDIRECTED PRN Peripheral IV Insertion Adult [OM.PC] Routine Oth 03/28/21 16:20 Ordered Medication Orders Sodium Chloride (Normal Saline) 1,000 mls @ 150 mls/hr IV ONETIME ONE Stop: 03/28/21 23:31 Last Admin: 03/28/21 17:28 Dose: 150 mls/hr Documented by: BROWN Sodium Chloride (Sodium Chloride 0.9% 10 Ml Syringe) 10 ml FLUSH ASDIRECTED PRN PRN Reason: Keep Vein Open Last Admin: 03/28/21 16:27 Dose: 10 ml Documented by: BROWN Labs: Laboratory Tests 03/28/21 Range/Units 16:28 Influenza Type A RNA Negative (NEGATIVE) Influenza Type B RNA Negative (NEGATIVE) SARS-CoV-2 RNA (JUAN RAMON) Negative (NEGATIVE) Meds: Medications Generic Name Dose Route Start Last Admin Trade Name Freq PRN Reason Stop Dose Admin Sodium Chloride 1,000 mls @ 150 mls/hr 03/28/21 16:52 03/28/21 17:28 Normal Saline IV 03/28/21 23:31 150 mls/hr ONETIME ONE Administration Sodium Chloride 10 ml 03/28/21 16:20 03/28/21 16:27 Sodium Chloride 0.9% 10 Ml Syringe FLUSH 10 ml ASDIRECTED PRN Administration Keep Vein Open Discontinued Medications Generic Name Dose Route Start Last Admin Trade Name Freq PRN Reason Stop Dose Admin Hydromorphone HCl 0.5 mg 03/28/21 16:53 03/28/21 17:27 Hydromorphone 0.5 Mg/0.5 Ml Syringe IVPUSH 03/28/21 16:54 0.5 mg ONETIME ONE Administration Ondansetron HCl 4 mg 03/28/21 16:53 03/28/21 17:26 Ondansetron 4 Mg/2 Ml Sdv IVPUSH 03/28/21 16:54 4 mg ONETIME ONE Administration - Re-Assessments/Exams Free Text/Narrative Re-Assessment/Exam: 03/28/21 16:40 Patient presents to the ER for his ongoing abdominal pain. For today's purposes Dr. Carvalho is our surgeon on-call, so he will need to admit the patient for hospital admission for the ileus/small bowel obstruction pattern. I did call and talk with him regarding this patient, and he did graciously accept in care. We will go ahead start some IV fluids, give him some pain meds, nausea meds, keep him n.p.o. for today's purposes. I did discuss in length with the patient, that we cannot control who or which provider is bail bond agent, and if the patient would like to remain in this hospital, Dr. Carvalho would have to be his doctor for today's purposes, and likely throughout his stay. If he would want to be transferred elsewhere, I would accommodate the transfer request however we do have the facilities capable to take care of this patient at this hospital unless his care would exceed the limit of our capabilities. The patient did decide to stay in this hospital under the care of Dr. Carvalho at this time. Labs to be done will be the Covid screen, as the patient did have CBC, CMP and CRP through the [facility], for which I have the paper copies that will be included in the patient's chart. 03/28/21 17:44 COVID-19 screen is negative for today's purposes, we will go ahead and get admission orders written and transfer the patient over to the floor for ongoing management. Departure - Departure Time of Disposition: 17:45 Disposition: Refer to Observation Condition: Fair Clinical Impression: Ileus, unspecified - Discharge Information *PRESCRIPTION DRUG MONITORING PROGRAM REVIEWED*: No *COPY OF PRESCRIPTION DRUG MONITORING REPORT IN PATIENT LINDA: No Referrals: PCP,Not In Area [Primary Care Provider] - Forms: ED Department Discharge Sepsis Event Note (ED) - Evaluation Sepsis Screening Result: No Definite Risk - Focused Exam Vital Signs: Vital Signs Temp Pulse Resp BP Pulse Ox 03/28/21 15:59 97.5 F 95 18 116/64 95 - My Orders Last 24 Hours: My Active Orders 03/28/21 16:20 Peripheral IV Care [RC] . DIRECTED Sodium Chloride 0.9% [Saline Flush] 10 ml FLUSH ASDIRECTED PRN Peripheral IV Insertion Adult [OM.PC] Routine 03/28/21 16:52 Sodium Chloride 0.9% [Normal Saline] 1,000 ml IV ONETIME - Assessment/Plan Last 24 Hours: My Active Orders 03/28/21 16:20 Peripheral IV Care [RC] . DIRECTED Sodium Chloride 0.9% [Saline Flush] 10 ml FLUSH ASDIRECTED PRN Peripheral IV Insertion Adult [OM.PC] Routine 03/28/21 16:52 Sodium Chloride 0.9% [Normal Saline] 1,000 ml IV ONETIME
[2021-03-28] MEDS ORDERED: Sodium Chloride 0.9% 1,000 ML IV ONE (16:52)
[2021-03-28] MEDS ORDERED: HYDROmorphone 0.5 MG/0.5 ML Syringe IVPUSH ONE (16:53)
[2021-03-28] MEDS ORDERED: Ondansetron 4 MG/2 ML SDV IVPUSH ONE (16:53)
[2021-03-28 17:28] LABS: CORONAVIRUS COVID-19 NAA NEGATIVE (NEGATIVE)
[2021-03-28] MEDS ORDERED: Ketorolac 30 MG/ML SDV IM PRN (18:32)
[2021-03-28] MEDS ORDERED: Ondansetron 4 MG/2 ML SDV IV PRN (18:32)
[2021-03-28] MEDS ORDERED: Polyvinyl Alcohol 1.4% Ophth Soln 15 ML Bottle EYEBOTH PRN (18:37)
[2021-03-28] MEDS ORDERED: Fluticasone Propionate Nasal Spray 16 GM Bottle NASBOTH PRN (18:37)
[2021-03-28] MEDS ORDERED: Albuterol 6.7 GM Inhaler INH PRN (18:37)
[2021-03-28] MEDS ORDERED: Lactated Ringers 1,000 ML IV SCH (18:45)
[2021-03-28] MEDS ORDERED: Piperacillin/Tazobactam 4.5 GM in Sodium Chloride 0.9% 100 ML IV ONE (19:00)
--- NOTE | 2021-03-28 19:03 | PCM.HP.2 ---
H&P History of Present Illness - General Date of Service: 03/28/21 Admit Problem/Dx: Admission Diagnosis/Problem Admission Diagnosis/Problem Ileus Source of Information: Patient History Limitations: Reports: No Limitations - History of Present Illness Initial Comments - Free Text/Narative: Patient presents with concern for SBO. He had iatrogenic colonic perforation in 01/2021 after a colonoscopy. Underwent emergent right hemicolectomy. He developed abscess s/p IR drain and antibiotics. He then developed another abscess s/p IR abscess. Last drain was removed 1 weeks ago and the patient was doing well until 2 days ago when he started having increasing RUQ and right back pain. He came to clinic today and CT scan was concerning for possible SBO. WBC was normal but CRP was elevated to 98. He was sent to admission. I reviewed the CT, I believe the patient has inflammation around the anastomosis but no abscess. This is causing secondary SBO. Onset of Symptoms: Reports: Sudden, Gradual Duration of Symptoms: Reports: Day(s): (2) Location: Reports: Abdomen Severity: Moderate Improves with: Reports: Other (sitting up) Worsens with: Reports: Other (lying on his back) Right Lower Abdomen Pain Score (Numeric/FACES): 5 - Related Data Allergies/Adverse Reactions: Allergies Allergy/AdvReac Type Severity Reaction Status Date / Time seasonal AdvReac Other Uncoded 03/28/21 18:16 Home Medications: Home Meds Albuterol Sulfate [Albuterol Sulfate HFA] 2 puff INH Q6HR PRN 01/26/21 [History] Cholecalciferol (Vitamin D3) [Vitamin D3] 25 mcg PO DAILY 01/26/21 [History] Dextran 70/Hypromellose [Artificial Tears Eye Drops] 1 drop EYEBOTH Q6H PRN 01/26/21 [History] Metoprolol Succinate [Toprol XL] 25 mg PO DAILY 01/26/21 [History] Mirabegron [Myrbetriq] 50 mg PO DAILY 01/26/21 [History] Pantoprazole [ProTONIX] 40 mg PO DAILY 01/26/21 [History] Tamsulosin [Flomax] 0.4 mg PO DAILY 01/26/21 [History] Ubidecarenone [Coenzyme Q10] 200 mg PO DAILY 01/26/21 [History] atorvaSTATin [Lipitor] 40 mg PO BEDTIME 01/26/21 [History] diphenhydrAMINE [Benadryl] 25 mg PO BEDTIME 01/26/21 [History] lisinopriL [Lisinopril] 20 mg PO DAILY 01/26/21 [History] Fluticasone Propionate [Flonase] 1 spray NASBOTH DAILY PRN 01/29/21 [History] Tolterodine Tartrate [Detrol LA] 4 mg PO DAILY 01/30/21 [History] Acetaminophen [Tylenol] 650 mg PO Q4H PRN 03/28/21 [History] Amoxicillin/Potassium Clav [Amox-Clav 875-125 mg Tablet] 1 tab PO BID 03/28/21 [History] Aspirin [Aspirin EC] 81 mg PO DAILY 03/28/21 [History] Cetirizine HCl 10 mg PO DAILY 03/28/21 [History] Famotidine 10 mg PO BID 03/28/21 [History] L.acidoph,Paracasei, B.lactis [Probiotic] 1 cap PO 1200 03/28/21 [History] Past Medical History HEENT History: Reports: Cataract, Hard of Hearing, Other (See Below) Other HEENT History: Glasses; has upper and lower dentures Cardiovascular History: Reports: High Cholesterol, Hypertension, [place] Respiratory History: Reports: SOB Gastrointestinal History: Reports: GERD Genitourinary History: Reports: Other (See Below) Other Genitourinary History: bladder and prostate cancer. urgency and frequency Musculoskeletal History: Reports: Other (See Below) Other Musculoskeletal History: occassional back pain Endocrine/Metabolic History: Reports: Obesity/BMI 30+, Other (See Below) Other Endocrine/Metabolic History: Pre-DM Oncologic (Cancer) History: Reports: Bladder, Prostate - Infectious Disease History Infectious Disease History: Reports: Chicken Pox, Measles, Mumps - Past Surgical History HEENT Surgical History: Reports: Cataract Surgery Cardiovascular Surgical History: Reports: Coronary Artery Stent Respiratory Surgical History: Reports: None GI Surgical History: Reports: Appendectomy, Colonoscopy, Other (See Below) Other GI Surgeries/Procedures: Polyp biopsied, perforated bowel, hemicolectomy Male Surgical History: Reports: Prostate Biopsy, Other (See Below) Other Male Surgeries/Procedures: Surgery on bladder and prostate for cancer. Endocrine Surgical History: Reports: None Musculoskeletal Surgical History: Reports: None Oncologic Surgical History: Reports: None Social & Family History - Family History Family Medical History: No Pertinent Family History - Tobacco Use Tobacco Use Status *Q: Former Tobacco User Used Tobacco, but Quit: Yes Month/Year Tobacco Last Used: 1989 - Caffeine Use Caffeine Use: Reports: Soda - Recreational Drug Use Recreational Drug Use: No H&P Review of Systems - Review of Systems: Review Of Systems: See Below General: Reports: No Symptoms HEENT: Reports: No Symptoms Pulmonary: Reports: No Symptoms Cardiovascular: Reports: No Symptoms Gastrointestinal: Reports: Abdominal Pain Genitourinary: Reports: No Symptoms Musculoskeletal: Reports: No Symptoms Skin: Reports: No Symptoms Psychiatric: Reports: No Symptoms Neurological: Reports: No Symptoms Exam - Exam Exam: See Below - Vital Signs Vital Signs: Last Vital Signs Temp 97.5 F 03/28/21 15:59 Pulse 95 03/28/21 15:59 Resp 18 03/28/21 15:59 BP 116/64 03/28/21 15:59 Pulse Ox 95 03/28/21 15:59 Weight: 87.589 kg - Exam General: Alert, Oriented, Cooperative Lungs: Clear to Auscultation, Normal Respiratory Effort Cardiovascular: Regular Rate, Regular Rhythm, Normal S1, Normal S2 GI/Abdominal Exam: Soft, Non-Tender, No Organomegaly, Tender (RUQ) - Patient Data Lab Results Last 24 hrs: Laboratory Results - last 24 hr 03/28/21 Range/Units 16:28 Influenza Type A RNA Negative (NEGATIVE) Influenza Type B RNA Negative (NEGATIVE) SARS-CoV-2 RNA (JUAN RAMON) Negative (NEGATIVE) Sepsis Event Note - Evaluation Sepsis Screening Result: No Definite Risk - Focused Exam Vital Signs: Vital Signs Temp Pulse Resp BP Pulse Ox 03/28/21 15:59 97.5 F 95 18 116/64 95 Problem List Initiated/Reviewed/Updated: No Orders Last 24hrs: Active Orders 24 hr Category Date Time Status Admission Status [Patient Status] [ADT] Routine ADT 03/28/21 17:45 Active Antiembolic Devices [RC] PER UNIT ROUTINE Care 03/28/21 18:33 Active Intake and Output [RC] QSHIFT Care 03/28/21 18:32 Active Oxygen Therapy [RC] PRN Care 03/28/21 18:32 Active Peripheral IV Care [RC] . DIRECTED Care 03/28/21 16:20 Active Up ad Kathy [RC] ASDIRECTED Care 03/28/21 18:32 Active VTE/DVT Education [RC] PER UNIT ROUTINE Care 03/28/21 18:32 Active Vital Signs [RC] Q4H Care 03/28/21 18:32 Active Nothing per Oral Now Diet [DIET] Diet 03/28/21 Dinner Active BASIC METABOLIC PANEL,BMP [CHEM] AM Lab 03/29/21 05:11 Ordered BASIC METABOLIC PANEL,BMP [CHEM] AM Lab 03/30/21 05:11 Ordered BASIC METABOLIC PANEL,BMP [CHEM] AM Lab 03/31/21 05:11 Ordered BASIC METABOLIC PANEL,BMP [CHEM] AM Lab 04/01/21 05:11 Ordered BASIC METABOLIC PANEL,BMP [CHEM] AM Lab 04/02/21 05:11 Ordered CBC WITH AUTO DIFF [HEME] AM Lab 03/29/21 05:11 Ordered CBC WITH AUTO DIFF [HEME] AM Lab 03/30/21 05:11 Ordered CBC WITH AUTO DIFF [HEME] AM Lab 03/31/21 05:11 Ordered CBC WITH AUTO DIFF [HEME] AM Lab 04/01/21 05:11 Ordered CBC WITH AUTO DIFF [HEME] AM Lab 04/02/21 05:11 Ordered MAGNESIUM [CHEM] AM Lab 03/29/21 05:11 Ordered MAGNESIUM [CHEM] AM Lab 03/30/21 05:11 Ordered MAGNESIUM [CHEM] AM Lab 03/31/21 05:11 Ordered MAGNESIUM [CHEM] AM Lab 04/01/21 05:11 Ordered MAGNESIUM [CHEM] AM Lab 04/02/21 05:11 Ordered PHOSPHORUS [CHEM] AM Lab 03/29/21 05:11 Ordered PHOSPHORUS [CHEM] AM Lab 03/30/21 05:11 Ordered PHOSPHORUS [CHEM] AM Lab 03/31/21 05:11 Ordered PHOSPHORUS [CHEM] AM Lab 04/01/21 05:11 Ordered PHOSPHORUS [CHEM] AM Lab 04/02/21 05:11 Ordered Albuterol Sulfate Med 03/28/21 18:37 Ordered 2 puff INH Q6HR PRN Enoxaparin [Lovenox] Med 03/29/21 09:00 Ordered 40 mg SUBCUT DAILY Fluticasone Propionate [Flonase] Med 03/28/21 18:37 Ordered DOSE gm NASBOTH DAILY PRN Hypromellose Med 03/28/21 18:37 Ordered 1 drop EYEBOTH Q6H PRN Ketorolac [Toradol] Med 03/28/21 18:32 Active 30 mg IM Q6H PRN L.acidoph,Paracasei, B.lactis [Probiotic] Med 03/29/21 12:00 Ordered 1 cap PO 1200 Lactated Ringers [Ringers, Lactated] 1,000 ml Med 03/28/21 18:45 Active IV ASDIRECTED Metoprolol Succinate [Toprol XL] Med 03/29/21 09:00 Ordered 25 mg PO DAILY Mirabegron Med 03/29/21 09:00 Ordered 50 mg PO DAILY Ondansetron [Zofran] Med 03/28/21 18:32 Active 4 mg IV Q4H PRN Pantoprazole [ProTONIX] Med 03/29/21 09:00 Ordered 40 mg PO DAILY Piperacillin/Tazobactam [Piperacil-Tazobact] 4.5 gm Med 03/28/21 19:00 Active Sodium Chloride 0.9% [Normal Saline] 100 ml IV ONETIME Piperacillin/Tazobactam [Piperacil-Tazobact] 4.5 gm Med 03/29/21 03:00 Active Sodium Chloride 0.9% [Normal Saline] 100 ml IV Q8H Sodium Chloride 0.9% [Normal Saline] 1,000 ml Med 03/28/21 16:52 Active IV ONETIME Sodium Chloride 0.9% [Saline Flush] Med 03/28/21 16:20 Active 10 ml FLUSH ASDIRECTED PRN Tamsulosin [Flomax] Med 03/29/21 09:00 Ordered 0.4 mg PO DAILY Tolterodine Tartrate [Detrol LA] Med 03/29/21 09:00 Ordered 4 mg PO DAILY Ubidecarenone [Coenzyme Q10] Med 03/29/21 09:00 Ordered 200 mg PO DAILY Peripheral IV Insertion Adult [OM.PC] Routine Oth 03/28/21 16:20 Ordered Sequential Compression Device [OM.PC] Per Unit Routine Oth 03/28/21 18:32 Ordered Resuscitation Status Routine Resus Stat 03/28/21 18:32 Ordered Medication Orders Enoxaparin Sodium (Enoxaparin 40 Mg/0.4 Ml Syringe) 40 mg SUBCUT DAILY SHANEKA Fluticasone Propionate (Fluticasone Propionate Nasal [place] 16 Gm Bottle) gm NASBOTH DAILY PRN PRN Reason: Allergies Sodium Chloride (Normal Saline) 1,000 mls @ 150 mls/hr IV ONETIME ONE Stop: 03/28/21 23:31 Last Admin: 03/28/21 17:28 Dose: 150 mls/hr Documented by: BROWN Lactated Ringer's (Ringers, Lactated) 1,000 mls @ 125 mls/hr IV ASDIRECTED SHANEKA Piperacillin Sod/Tazobactam (Sod 4.5 gm/ Sodium Chloride) 100 mls @ 25 mls/hr IV Q8H SHANEKA Piperacillin Sod/Tazobactam (Sod 4.5 gm/ Sodium Chloride) 100 mls @ 25 mls/hr IV ONETIME ONE Stop: 03/28/21 22:59 Ketorolac Tromethamine (Ketorolac 30 Mg/Ml Sdv) 30 mg IM Q6H PRN PRN Reason: Pain (moderate 4-6) Metoprolol Succinate (Metoprolol Succinate 25 Mg Tab.Er) 25 mg PO DAILY [facility] Non-Formulary Medication (Albuterol Sulfate) 2 puff INH Q6HR PRN PRN Reason: Shortness of Breath Non-Formulary Medication (Hypromellose) 1 drop EYEBOTH Q6H PRN PRN Reason: Dry Eyes Non-Formulary Medication (L.Acidoph,Paracasei, B.Lactis [Probiotic]) 1 cap PO 1200 [facility] Non-Formulary Medication (Mirabegron) 50 mg PO DAILY [facility] Non-Formulary Medication (Tolterodine Tartrate [Detrol La]) 4 mg PO DAILY [facility] Non-Formulary Medication (Ubidecarenone [Coenzyme Q10]) 200 mg PO DAILY [facility] Ondansetron HCl (Ondansetron 4 Mg/2 Ml Sdv) 4 mg IV Q4H PRN PRN Reason: Nausea/Vomiting Pantoprazole Sodium (Pantoprazole 40 Mg Tab.Cr) 40 mg PO DAILY [facility] Sodium Chloride (Sodium Chloride 0.9% 10 Ml Syringe) 10 ml FLUSH ASDIRECTED PRN PRN Reason: Keep Vein Open Last Admin: 03/28/21 16:27 Dose: 10 ml Documented by: BROWN Tamsulosin HCl (Tamsulosin 0.4 Mg Cap.Er) 0.4 mg PO DAILY [facility] Assessment/Plan Comment:: Patient s/p R hemicolectomy 01/2021 after colonic perf from colonoscopy. Developed abscesses x2 s/p IR drainage. Last drain removed 03/20/21. He was still on antibiotics. Plan - bowel rest - NPO, Zosyn - Pain control - Incentive spirometer - Daily labs - Mortality Measure Prognosis:: Good
[2021-03-28] MEDS ORDERED: HYDROmorphone 0.5 MG/0.5 ML Syringe IVPUSH PRN (19:09)
[2021-03-28] MEDS: Ketorolac 30 MG/ML SDV IVPUSH PRN (22:13)
[2021-03-29] MEDS: Piperacillin/Tazobactam 4.5 GM in Sodium Chloride 0.9% 100 ML IV SCH ×3 (02:05→18:22)
[2021-03-29] MEDS: HYDROmorphone 1 MG/ML Syringe IVPUSH PRN ×2 (02:07→20:59)
[2021-03-29] MEDS: Ketorolac 30 MG/ML SDV IVPUSH PRN ×2 (06:23→14:22)
[2021-03-29] MEDS: Trospium 20 MG Tab PO SCH ×2 (06:32→16:39)
[2021-03-29] MEDS ORDERED: Magnesium Sulfate/Water 4 GM in Premix Bag 1 BAG IV ONE (07:20)
--- NOTE | 2021-03-29 08:06 | PCM.PN ---
- General Info Date of Service: 03/29/21 Admission Dx/Problem (Free Text): Admission Diagnosis/Problem Admission Diagnosis/Problem Ileus Subjective Update: Feeling better today. no fevers or chills or nausea/vomiting overnight Functional Status: Reports: Pain Controlled, Urinating - Review of Systems General: Reports: No Symptoms HEENT: Reports: No Symptoms Pulmonary: Reports: No Symptoms Cardiovascular: Reports: No Symptoms Gastrointestinal: Reports: Abdominal Pain Genitourinary: Reports: No Symptoms Musculoskeletal: Reports: No Symptoms Skin: Reports: No Symptoms Neurological: Reports: No Symptoms Psychiatric: Reports: No Symptoms - Patient Data Vitals - Most Recent: Last Vital Signs Temp 98.1 F 03/29/21 02:21 Pulse 96 03/29/21 02:21 Resp 18 03/29/21 02:21 BP 129/65 03/29/21 02:21 Pulse Ox 91 L 03/29/21 02:21 Weight - Most Recent: 87.589 kg I&O - Last 24 Hours: Intake & Output 03/28/21 03/29/21 03/29/21 22:59 06:59 14:59 Intake Total 514 Output Total 350 Balance 164 Lab Results Last 24 Hours: Laboratory Results - last 24 hr 03/28/21 03/29/21 03/29/21 Range/Units 16:28 05:27 05:27 WBC 9.47 H (4.23-9.07) K/mm3 RBC 3.39 L (4.63-6.08) M/mm3 Hgb 10.3 L (13.7-17.5) gm/dl Hct 32.8 L (40.1-51.0) % MCV 96.8 H (79.0-92.2) fl MCH 30.4 (25.7-32.2) pg MCHC 31.4 L (32.2-35.5) g/dl RDW Std Deviation 61.2 H (35.1-43.9) fL Plt Count 208 (163-337) K/mm3 MPV 8.8 L (9.4-12.3) fl Neut % (Auto) 56.6 (34.0-67.9) % Lymph % (Auto) 32.2 (21.8-53.1) % [place] % (Auto) 10.6 (5.3-12.2) % Eos % (Auto) 0.2 L (0.8-7.0) Baso % (Auto) 0.3 (0.1-1.2) % Neut # (Auto) 5.36 (1.78-5.38) K/mm3 Lymph # (Auto) 3.05 (1.32-3.57) K/mm3 [place] # (Auto) 1.00 H (0.30-0.82) K/mm3 Eos # (Auto) 0.02 L (0.04-0.54) K/mm3 Baso # (Auto) 0.03 (0.01-0.08) K/mm3 Sodium 139 (136-145) mEq/L Potassium 4.5 (3.5-5.1) mEq/L Chloride 102 (98-107) mEq/L Carbon Dioxide 29 (21-32) mEq/L Anion Gap 12.5 (5-15) BUN 14 (7-18) mg/dL Creatinine 1.0 (0.7-1.3) mg/dL Est Cr Clr Drug Dosing 61.75 mL/min Estimated GFR (MDRD) > 60 (>60) mL/min BUN/Creatinine Ratio 14.0 (14-18) Glucose 108 H (70-99) mg/dL Calcium 9.3 (8.5-10.1) mg/dL Phosphorus 4.0 (2.6-4.7) mg/dL Magnesium 1.5 L (1.8-2.4) mg/dL Influenza Type A RNA Negative (NEGATIVE) Influenza Type B RNA Negative (NEGATIVE) SARS-CoV-2 RNA ([facility] RAMON) Negative (NEGATIVE) Med Orders - Current: Current Medications Albuterol (Albuterol 6.7 Gm Inhaler) 0 gm INH Q6H PRN PRN Reason: Shortness of Breath Artificial Tears (Polyvinyl Alcohol 1.4% Ophth Soln 15 Ml Bottle) 0 ml EYEBOTH Q6H PRN PRN Reason: Dry Eyes Enoxaparin Sodium (Enoxaparin 40 Mg/0.4 Ml Syringe) 40 mg SUBCUT DAILY [facility] Fluticasone Propionate (Fluticasone Propionate Nasal [place] 16 Gm Bottle) 0 gm NASBOTH DAILY PRN PRN Reason: Allergies Hydromorphone HCl (Hydromorphone 1 Mg/Ml Syringe) 1 mg IVPUSH Q3H PRN PRN Reason: Abdominal Pain Last Admin: 03/29/21 02:07 Dose: 1 mg Documented by: Piperacillin Sod/Tazobactam (Sod 4.5 gm/ Sodium Chloride) 100 mls @ 25 mls/hr IV Q8H [facility] Last Admin: 03/29/21 02:05 Dose: 25 mls/hr Documented by: Magnesium Sulfate 4 gm/ Premix 50 mls @ 12.5 mls/hr IV ONETIME ONE Stop: 03/29/21 11:19 Lactated Ringer's (Ringers, Lactated) 1,000 mls @ 75 mls/hr IV ASDIRECTED [facility] Ketorolac Tromethamine (Ketorolac 30 Mg/Ml Sdv) 30 mg IVPUSH Q6H PRN PRN Reason: Pain (moderate 4-6) Last Admin: 03/29/21 06:23 Dose: 30 mg Documented by: Metoprolol Succinate (Metoprolol Succinate 25 Mg Tab.Er) 25 mg PO DAILY [facility] Ondansetron HCl (Ondansetron 4 Mg/2 Ml Sdv) 4 mg IV Q4H PRN PRN Reason: Nausea/Vomiting Pantoprazole Sodium (Pantoprazole 40 Mg Tab.Cr) 40 mg PO DAILY [facility] Mirabegron 25 Mg Tab (.Er) 0 each PO DAILY [facility] Ubidecarenone [ Coenzyme Q10] 10 Mg Capsule 0 each PO DAILY [facility] Saccharomyces Boulardii (Saccharomyces Boulardii (Probiotic) 250 Mg Cap) 250 mg PO DAILY@1200 [facility] Sodium Chloride (Sodium Chloride 0.9% 10 Ml Syringe) 10 ml FLUSH ASDIRECTED PRN PRN Reason: Keep Vein Open Last Admin: 03/28/21 16:27 Dose: 10 ml Documented by: Tamsulosin HCl (Tamsulosin 0.4 Mg Cap.Er) 0.4 mg PO DAILY [facility] Trospium (Trospium 20 Mg Tab) 20 mg PO BIDAC [facility] Last Admin: 03/29/21 06:32 Dose: 20 mg Documented by: Discontinued Medications Hydromorphone HCl (Hydromorphone 0.5 Mg/0.5 Ml Syringe) 0.5 mg IVPUSH ONETIME ONE Stop: 03/28/21 16:54 Last Admin: 03/28/21 17:27 Dose: 0.5 mg Documented by: Hydromorphone HCl (Hydromorphone 0.5 Mg/0.5 Ml Syringe) 0.5 mg IVPUSH Q3H PRN PRN Reason: Abdominal Pain Last Admin: 03/28/21 19:53 Dose: 0.5 mg Documented by: Sodium Chloride (Normal Saline) 1,000 mls @ 150 mls/hr IV ONETIME ONE Stop: 03/28/21 23:31 Last Admin: 03/28/21 17:28 Dose: 150 mls/hr Documented by: Lactated Ringer's (Ringers, Lactated) 1,000 mls @ 125 mls/hr IV ASDIRECTED [facility] Last Admin: 03/28/21 23:34 Dose: 125 mls/hr Documented by: Piperacillin Sod/Tazobactam (Sod 4.5 gm/ Sodium Chloride) 100 mls @ 25 mls/hr IV ONETIME ONE Stop: 03/28/21 22:59 Last Admin: 03/28/21 19:54 Dose: 25 mls/hr Documented by: Ketorolac Tromethamine (Ketorolac 30 Mg/Ml Sdv) 30 mg IM Q6H PRN PRN Reason: Pain (moderate 4-6) Ondansetron HCl (Ondansetron 4 Mg/2 Ml Sdv) 4 mg IVPUSH ONETIME ONE Stop: 03/28/21 16:54 Last Admin: 03/28/21 17:26 Dose: 4 mg Documented by: - Exam General: Alert, Oriented, Cooperative Lungs: Clear to Auscultation, Normal Respiratory Effort Cardiovascular: Regular Rate, Regular Rhythm GI/Abdominal Exam: Soft, No Organomegaly, No Distention, Tender (mildly on RUQ) - Patient Data Lab Results Last 24 hrs: Laboratory Results - last 24 hr 03/28/21 03/29/21 03/29/21 Range/Units 16:28 05:27 05:27 WBC 9.47 H (4.23-9.07) K/mm3 RBC 3.39 L (4.63-6.08) M/mm3 Hgb 10.3 L (13.7-17.5) gm/dl Hct 32.8 L (40.1-51.0) % MCV 96.8 H (79.0-92.2) fl MCH 30.4 (25.7-32.2) pg MCHC 31.4 L (32.2-35.5) g/dl RDW Std Deviation 61.2 H (35.1-43.9) fL Plt Count 208 (163-337) K/mm3 MPV 8.8 L (9.4-12.3) fl Neut % (Auto) 56.6 (34.0-67.9) % Lymph % (Auto) 32.2 (21.8-53.1) % [place] % (Auto) 10.6 (5.3-12.2) % Eos % (Auto) 0.2 L (0.8-7.0) Baso % (Auto) 0.3 (0.1-1.2) % Neut # (Auto) 5.36 (1.78-5.38) K/mm3 Lymph # (Auto) 3.05 (1.32-3.57) K/mm3 [place] # (Auto) 1.00 H (0.30-0.82) K/mm3 Eos # (Auto) 0.02 L (0.04-0.54) K/mm3 Baso # (Auto) 0.03 (0.01-0.08) K/mm3 Sodium 139 (136-145) mEq/L Potassium 4.5 (3.5-5.1) mEq/L Chloride 102 (98-107) mEq/L Carbon Dioxide 29 (21-32) mEq/L Anion Gap 12.5 (5-15) BUN 14 (7-18) mg/dL Creatinine 1.0 (0.7-1.3) mg/dL Est Cr Clr Drug Dosing 61.75 mL/min Estimated GFR (MDRD) > 60 (>60) mL/min BUN/Creatinine Ratio 14.0 (14-18) Glucose 108 H (70-99) mg/dL Calcium 9.3 (8.5-10.1) mg/dL Phosphorus 4.0 (2.6-4.7) mg/dL Magnesium 1.5 L (1.8-2.4) mg/dL Influenza Type A RNA Negative (NEGATIVE) Influenza Type B RNA Negative (NEGATIVE) SARS-CoV-2 RNA ([facility]ON) Negative (NEGATIVE) Result Diagrams: 03/29/21 05:27 03/29/21 05:27 Sepsis Event Note - Evaluation Sepsis Screening Result: No Definite Risk - Focused Exam Vital Signs: Vital Signs Temp Pulse Resp BP Pulse Ox 03/29/21 02:21 98.1 F 96 18 129/65 91 L - Problem List Review Problem List Initiated/Reviewed/Updated: No - My Orders Last 24 Hours: My Active Orders 03/28/21 18:32 Intake and Output [RC] 04,16 Oxygen Therapy [RC] PRN Up ad Kathy [RC] ASDIRECTED VTE/DVT Education [RC] PER UNIT ROUTINE Vital Signs [RC] Q4HR Ondansetron [Zofran] 4 mg IV Q4H PRN Sequential Compression Device [OM.PC] Per Unit Routine Resuscitation Status Routine 03/28/21 18:33 Antiembolic Devices [RC] PER UNIT ROUTINE 03/28/21 18:37 Albuterol [Proventil HFA] 0 gm INH Q6H PRN Fluticasone Propionate [Flonase] 0 gm NASBOTH DAILY PRN Polyvinyl Alcohol [LiquiTears 1.4% Ophth Soln] 0 ml EYEBOTH Q6H PRN 03/28/21 22:02 Ketorolac [Toradol] 30 mg IVPUSH Q6H PRN 03/28/21 22:05 HYDROmorphone [Dilaudid] 1 mg IVPUSH Q3H PRN 03/29/21 03:00 Piperacillin/Tazobactam [Piperacil-Tazobact] 4.5 gm Sodium Chloride 0.9% [Normal Saline] 100 ml IV Q8H 03/29/21 06:30 Trospium [Sanctura] 20 mg PO BIDAC 03/29/21 Breakfast Clear Liquid Diet [DIET] 03/29/21 07:20 Magnesium Sulfate/Water [Magnesium Sulfate in Water 4 GM/50 ML] 4 gm Premix Bag 1 bag IV ONETIME 03/29/21 07:30 Lactated Ringers [Ringers, Lactated] 1,000 ml IV ASDIRECTED 03/29/21 09:00 Enoxaparin [Lovenox] 40 mg SUBCUT DAILY Metoprolol Succinate [Toprol XL] 25 mg PO DAILY Pantoprazole [ProTONIX] 40 mg PO DAILY Patient's Own Medication [Ptom] 0 each PO DAILY Patient's Own Medication [Ptom] 0 each PO DAILY Tamsulosin [Flomax] 0.4 mg PO DAILY 03/29/21 12:00 Saccharomyces Boulardii [Florastor] 250 mg PO DAILY@1200 03/30/21 05:11 BASIC METABOLIC PANEL,BMP [CHEM] AM CBC WITH AUTO DIFF [HEME] AM CRP [C-REACTIVE PROTEIN] [CHEM] AM MAGNESIUM [CHEM] AM PHOSPHORUS [CHEM] AM 03/31/21 05:11 BASIC METABOLIC PANEL,BMP [CHEM] AM CBC WITH AUTO DIFF [HEME] AM CRP [C-REACTIVE PROTEIN] [CHEM] AM MAGNESIUM [CHEM] AM PHOSPHORUS [CHEM] AM 04/01/21 05:11 BASIC METABOLIC PANEL,BMP [CHEM] AM CBC WITH AUTO DIFF [HEME] AM CRP [C-REACTIVE PROTEIN] [CHEM] AM MAGNESIUM [CHEM] AM PHOSPHORUS [CHEM] AM 04/02/21 05:11 BASIC METABOLIC PANEL,BMP [CHEM] AM CBC WITH AUTO DIFF [HEME] AM CRP [C-REACTIVE PROTEIN] [CHEM] AM MAGNESIUM [CHEM] AM PHOSPHORUS [CHEM] AM 04/03/21 05:11 CRP [C-REACTIVE PROTEIN] [CHEM] AM - Assessment Assessment:: HD1 for possible ileus vs SBO. Has inflammation around ileocolonic anastomosis causing pSBO. - continue IV ZOsyn - Check CRP tomorrow with labs - CLD today - Ok to ambulate as tolerated - replete mag - Will continue to monitor - Plan Plan:: Patient s/p R hemicolectomy 01/2021 after colonic perf from colonoscopy. Developed abscesses x2 s/p IR drainage. Last drain removed 03/20/21. He was still on antibiotics. Plan - bowel rest - NPO, Zosyn - Pain control - Incentive spirometer - Daily labs
[2021-03-29] MEDS: Tamsulosin 0.4 MG Cap.ER PO SCH (08:22)
[2021-03-29] MEDS: Pantoprazole 40 MG Tab.CR PO SCH (08:23)
[2021-03-29] MEDS: Metoprolol Succinate 25 MG Tab.ER PO SCH (08:23)
[2021-03-29] MEDS: Enoxaparin 40 MG/0.4 ML Syringe SUBCUT SCH (08:24)
[2021-03-29] MEDS: Ubidecarenone [Coenzyme Q10] 10 MG Capsule PO SCH (08:25)
[2021-03-29] MEDS: Mirabegron 25 MG Tab.Er PO SCH (08:25)
[2021-03-29] MEDS: Saccharomyces Boulardii (Probiotic) 250 MG Cap PO SCH (12:12)
[2021-03-29] MEDS: Lactated Ringers 1,000 ML IV SCH (18:25)
[2021-03-30] MEDS: HYDROmorphone 1 MG/ML Syringe IVPUSH PRN (01:04)
[2021-03-30] MEDS: Piperacillin/Tazobactam 4.5 GM in Sodium Chloride 0.9% 100 ML IV SCH ×3 (03:41→18:20)
[2021-03-30] MEDS ORDERED: Diatrizoate Meglumine/Diatrizoate Sodium 37% 120 ML Bottle PO ONE (09:57)
[2021-03-30] MEDS ORDERED: HYDROmorphone 1 MG/ML Syringe IVPUSH PRN (09:59)
[2021-03-30] MEDS ORDERED: Carboxymethylcellulose Sodium 1% Ophth Gel 15 ML Bottle EYEBOTH PRN (10:04)
[2021-03-30] MEDS: Metoprolol Succinate 25 MG Tab.ER PO SCH (10:21)
[2021-03-30] MEDS: Mirabegron 25 MG Tab.Er PO SCH (10:22)
[2021-03-30] MEDS: Ubidecarenone [Coenzyme Q10] 10 MG Capsule PO SCH (10:22)
[2021-03-30] MEDS: Pantoprazole 40 MG Tab.CR PO SCH (10:22)
[2021-03-30] MEDS: Tamsulosin 0.4 MG Cap.ER PO SCH (10:22)
[2021-03-30] MEDS: Enoxaparin 40 MG/0.4 ML Syringe SUBCUT SCH (10:23)
[2021-03-30] MEDS: Trospium 20 MG Tab PO SCH ×2 (10:23→16:31)
[2021-03-30] MEDS: Saccharomyces Boulardii (Probiotic) 250 MG Cap PO SCH (12:01)
--- NOTE | 2021-03-30 15:42 | PCM.PN ---
- General Info Date of Service: 03/30/21 Admission Dx/Problem (Free Text): Admission Diagnosis/Problem Admission Diagnosis/Problem Ileus Subjective Update: Tolerating clears, pain is controlled, ambulating Functional Status: Reports: Pain Controlled, Tolerating Diet, Ambulating, Urinating - Review of Systems General: Reports: No Symptoms HEENT: Reports: No Symptoms Pulmonary: Reports: No Symptoms Cardiovascular: Reports: No Symptoms Gastrointestinal: Reports: Abdominal Pain Genitourinary: Reports: No Symptoms Musculoskeletal: Reports: No Symptoms Skin: Reports: No Symptoms - Patient Data Vitals - Most Recent: Last Vital Signs Temp 98.8 F 03/30/21 13:39 Pulse 96 03/30/21 13:39 Resp 14 03/30/21 13:39 BP 128/64 03/30/21 13:39 Pulse Ox 93 L 03/30/21 13:39 Weight - Most Recent: 87.543 kg I&O - Last 24 Hours: Intake & Output 03/30/21 03/30/21 03/30/21 06:59 14:59 22:59 Intake Total 900 Output Total 450 Balance 450 Lab Results Last 24 Hours: Laboratory Results - last 24 hr 03/30/21 03/30/21 Range/Units 05:33 05:33 WBC 6.35 (4.23-9.07) K/mm3 RBC 3.03 L (4.63-6.08) M/mm3 Hgb 9.2 L (13.7-17.5) gm/dl Hct 29.1 L (40.1-51.0) % MCV 96.0 H (79.0-92.2) fl MCH 30.4 (25.7-32.2) pg MCHC 31.6 L (32.2-35.5) g/dl RDW Std Deviation 57.9 H (35.1-43.9) fL Plt Count 187 (163-337) K/mm3 MPV 8.3 L (9.4-12.3) fl Neut % (Auto) 50.2 (34.0-67.9) % Lymph % (Auto) 36.5 (21.8-53.1) % [place] % (Auto) 10.6 (5.3-12.2) % Eos % (Auto) 2.4 (0.8-7.0) Baso % (Auto) 0.3 (0.1-1.2) % Neut # (Auto) 3.19 (1.78-5.38) K/mm3 Lymph # (Auto) 2.32 (1.32-3.57) K/mm3 [place] # (Auto) 0.67 (0.30-0.82) K/mm3 Eos # (Auto) 0.15 (0.04-0.54) K/mm3 Baso # (Auto) 0.02 (0.01-0.08) K/mm3 Sodium 137 (136-145) mEq/L Potassium 3.9 (3.5-5.1) mEq/L Chloride 101 (98-107) mEq/L Carbon Dioxide 27 (21-32) mEq/L Anion Gap 12.9 (5-15) BUN 11 (7-18) mg/dL Creatinine 0.8 (0.7-1.3) mg/dL Est Cr Clr Drug Dosing 77.19 mL/min Estimated GFR (MDRD) > 60 (>60) mL/min BUN/Creatinine Ratio 13.8 L (14-18) Glucose 96 (70-99) mg/dL Calcium 8.2 L (8.5-10.1) mg/dL Phosphorus 2.9 (2.6-4.7) mg/dL Magnesium 1.9 (1.8-2.4) mg/dL C-Reactive Protein 19.5 H* (<1.0) mg/dL Med Orders - Current: Current Medications Albuterol (Albuterol 6.7 Gm Inhaler) 0 gm INH Q6H PRN PRN Reason: Shortness of Breath Artificial Tears (Carboxymethylcellulose Sodium 1% Ophth Gel 15 Ml Bottle) 0 ml EYEBOTH Q6H PRN PRN Reason: Dry Eyes Enoxaparin Sodium (Enoxaparin 40 Mg/0.4 Ml Syringe) 40 mg SUBCUT DAILY [facility] Last Admin: 03/30/21 10:23 Dose: 40 mg Documented by: Fluticasone Propionate (Fluticasone Propionate Nasal [place] 16 Gm Bottle) 0 gm NASBOTH DAILY PRN PRN Reason: Allergies Hydromorphone HCl (Hydromorphone 1 Mg/Ml Syringe) 1 mg IVPUSH Q6H PRN PRN Reason: Abdominal Pain Last Admin: 03/30/21 12:01 Dose: 1 mg Documented by: Piperacillin Sod/Tazobactam (Sod 4.5 gm/ Sodium Chloride) 100 mls @ 25 mls/hr IV Q8H [facility] Last Admin: 03/30/21 10:22 Dose: 25 mls/hr Documented by: Lactated Ringer's (Ringers, Lactated) 1,000 mls @ 75 mls/hr IV ASDIRECTED [facility] Last Admin: 03/29/21 18:25 Dose: 75 mls/hr Documented by: Ketorolac Tromethamine (Ketorolac 30 Mg/Ml Sdv) 30 mg IVPUSH Q6H PRN PRN Reason: Pain (moderate 4-6) Last Admin: 03/29/21 14:22 Dose: 30 mg Documented by: Metoprolol Succinate (Metoprolol Succinate 25 Mg Tab.Er) 25 mg PO DAILY [facility] Last Admin: 03/30/21 10:21 Dose: 25 mg Documented by: Ondansetron HCl (Ondansetron 4 Mg/2 Ml Sdv) 4 mg IV Q4H PRN PRN Reason: Nausea/Vomiting Pantoprazole Sodium (Pantoprazole 40 Mg Tab.Cr) 40 mg PO DAILY [facility] Last Admin: 03/30/21 10:22 Dose: 40 mg Documented by: Mirabegron 25 Mg Tab (.Er) 0 each PO DAILY [facility] Last Admin: 03/30/21 10:22 Dose: 50 each Documented by: Ubidecarenone [ Coenzyme Q10] 10 Mg Capsule 0 each PO DAILY [facility] Last Admin: 03/30/21 10:22 Dose: 200 each Documented by: Saccharomyces Boulardii (Saccharomyces Boulardii (Probiotic) 250 Mg Cap) 250 mg PO DAILY@1200 [facility] Last Admin: 03/30/21 12:01 Dose: 250 mg Documented by: Sodium Chloride (Sodium Chloride 0.9% 10 Ml Syringe) 10 ml FLUSH ASDIRECTED PRN PRN Reason: Keep Vein Open Last Admin: 03/28/21 16:27 Dose: 10 ml Documented by: Tamsulosin HCl (Tamsulosin 0.4 Mg Cap.Er) 0.4 mg PO DAILY [facility] Last Admin: 03/30/21 10:22 Dose: 0.4 mg Documented by: Trospium (Trospium 20 Mg Tab) 20 mg PO BIDAC [facility] Last Admin: 03/30/21 10:23 Dose: 20 mg Documented by: Discontinued Medications Artificial Tears (Polyvinyl Alcohol 1.4% Ophth Soln 15 Ml Bottle) 0 ml EYEBOTH Q6H PRN PRN Reason: Dry Eyes Diatrizoate Meglum/Diatrizoate Sod (Diatrizoate Meglumine/Diatrizoate Sodium 37% 120 Ml Bottle) 120 ml PO ONETIME ONE Stop: 03/30/21 09:58 Last Admin: 03/30/21 10:22 Dose: 120 ml Documented by: Hydromorphone HCl (Hydromorphone 0.5 Mg/0.5 Ml Syringe) 0.5 mg IVPUSH ONETIME ONE Stop: 03/28/21 16:54 Last Admin: 03/28/21 17:27 Dose: 0.5 mg Documented by: Hydromorphone HCl (Hydromorphone 0.5 Mg/0.5 Ml Syringe) 0.5 mg IVPUSH Q3H PRN PRN Reason: Abdominal Pain Last Admin: 03/28/21 19:53 Dose: 0.5 mg Documented by: Hydromorphone HCl (Hydromorphone 1 Mg/Ml Syringe) 1 mg IVPUSH Q3H PRN PRN Reason: Abdominal Pain Last Admin: 03/30/21 01:04 Dose: 1 mg Documented by: Sodium Chloride (Normal Saline) 1,000 mls @ 150 mls/hr IV ONETIME ONE Stop: 03/28/21 23:31 Last Admin: 03/28/21 17:28 Dose: 150 mls/hr Documented by: Lactated Ringer's (Ringers, Lactated) 1,000 mls @ 125 mls/hr IV ASDIRECTED [facility] Last Admin: 03/28/21 23:34 Dose: 125 mls/hr Documented by: Piperacillin Sod/Tazobactam (Sod 4.5 gm/ Sodium Chloride) 100 mls @ 25 mls/hr IV ONETIME ONE Stop: 03/28/21 22:59 Last Admin: 03/28/21 19:54 Dose: 25 mls/hr Documented by: Magnesium Sulfate 4 gm/ Premix 50 mls @ 12.5 mls/hr IV ONETIME ONE Stop: 03/29/21 11:19 Last Admin: 03/29/21 08:09 Dose: 12.5 mls/hr Documented by: Ketorolac Tromethamine (Ketorolac 30 Mg/Ml Sdv) 30 mg IM Q6H PRN PRN Reason: Pain (moderate 4-6) Ondansetron HCl (Ondansetron 4 Mg/2 Ml Sdv) 4 mg IVPUSH ONETIME ONE Stop: 03/28/21 16:54 Last Admin: 03/28/21 17:26 Dose: 4 mg Documented by: - Exam General: Alert, Oriented, Cooperative Lungs: Normal Respiratory Effort Cardiovascular: Regular Rate, Regular Rhythm GI/Abdominal Exam: Soft, Non-Tender, No Organomegaly, No Distention - Patient Data Lab Results Last 24 hrs: Laboratory Results - last 24 hr 03/30/21 03/30/21 Range/Units 05:33 05:33 WBC 6.35 (4.23-9.07) K/mm3 RBC 3.03 L (4.63-6.08) M/mm3 Hgb 9.2 L (13.7-17.5) gm/dl Hct 29.1 L (40.1-51.0) % MCV 96.0 H (79.0-92.2) fl MCH 30.4 (25.7-32.2) pg MCHC 31.6 L (32.2-35.5) g/dl RDW Std Deviation 57.9 H (35.1-43.9) fL Plt Count 187 (163-337) K/mm3 MPV 8.3 L (9.4-12.3) fl Neut % (Auto) 50.2 (34.0-67.9) % Lymph % (Auto) 36.5 (21.8-53.1) % [place] % (Auto) 10.6 (5.3-12.2) % Eos % (Auto) 2.4 (0.8-7.0) Baso % (Auto) 0.3 (0.1-1.2) % Neut # (Auto) 3.19 (1.78-5.38) K/mm3 Lymph # (Auto) 2.32 (1.32-3.57) K/mm3 [place] # (Auto) 0.67 (0.30-0.82) K/mm3 Eos # (Auto) 0.15 (0.04-0.54) K/mm3 Baso # (Auto) 0.02 (0.01-0.08) K/mm3 Sodium 137 (136-145) mEq/L Potassium 3.9 (3.5-5.1) mEq/L Chloride 101 (98-107) mEq/L Carbon Dioxide 27 (21-32) mEq/L Anion Gap 12.9 (5-15) BUN 11 (7-18) mg/dL Creatinine 0.8 (0.7-1.3) mg/dL Est Cr Clr Drug Dosing 77.19 mL/min Estimated GFR (MDRD) > 60 (>60) mL/min BUN/Creatinine Ratio 13.8 L (14-18) Glucose 96 (70-99) mg/dL Calcium 8.2 L (8.5-10.1) mg/dL Phosphorus 2.9 (2.6-4.7) mg/dL Magnesium 1.9 (1.8-2.4) mg/dL C-Reactive Protein 19.5 H* (<1.0) mg/dL Result Diagrams: 03/30/21 05:33 03/30/21 05:33 Sepsis Event Note - Evaluation Sepsis Screening Result: No Definite Risk - Focused Exam Vital Signs: Vital Signs Temp Pulse Resp BP Pulse Ox 03/30/21 13:39 98.8 F 96 14 128/64 93 L 03/30/21 10:21 99 139/60 03/30/21 09:00 98.8 F 99 16 139/60 86 L - Problem List Review Problem List Initiated/Reviewed/Updated: No - My Orders Last 24 Hours: My Active Orders 03/30/21 09:59 HYDROmorphone [Dilaudid] 1 mg IVPUSH Q6H PRN 03/30/21 10:04 Carboxymethylcellulose Sodium [Refresh Liquigel 1%] 0 ml EYEBOTH Q6H PRN 03/30/21 16:30 Abdomen 1V Flat [CR] Routine 03/31/21 05:11 BASIC METABOLIC PANEL,BMP [CHEM] AM CBC WITH AUTO DIFF [HEME] AM CRP [C-REACTIVE PROTEIN] [CHEM] AM MAGNESIUM [CHEM] AM PHOSPHORUS [CHEM] AM 04/01/21 05:11 BASIC METABOLIC PANEL,BMP [CHEM] AM CBC WITH AUTO DIFF [HEME] AM CRP [C-REACTIVE PROTEIN] [CHEM] AM MAGNESIUM [CHEM] AM PHOSPHORUS [CHEM] AM 04/02/21 05:11 BASIC METABOLIC PANEL,BMP [CHEM] AM CBC WITH AUTO DIFF [HEME] AM CRP [C-REACTIVE PROTEIN] [CHEM] AM MAGNESIUM [CHEM] AM PHOSPHORUS [CHEM] AM 04/03/21 05:11 CRP [C-REACTIVE PROTEIN] [CHEM] AM - Assessment Assessment:: Patient s/p R hemicolectomy 01/2021 after colonic perf from colonoscopy. Developed abscesses x2 s/p IR drainage. Last drain removed 03/20/21. He was still on antibiotics. HD2 for possible ileus vs SBO. Has inflammation around ileocolonic anastomosis causing pSBO. - Plan Plan:: - Will do a contrast study today: patient will take PO Gastrografin contrast, then do an ABD XR after 8 hrs. If contrast is in colon then consider advancing to Reg diet - continue IV ZOsyn - Daily CRP with labs - CLD for now - Ok to ambulate as tolerated - Signed off the pt to Dr. Shelton who will assume care today (pt/family preference)
[2021-03-30] MEDS: Lactated Ringers 1,000 ML IV SCH (16:33)
--- NOTE | 2021-03-30 17:05 | CR ---
Abdomen: Supine view of the abdomen was obtained. Comparison: Prior CT abdomen and pelvis study of 02/08/21. Contrast is noted within the stomach as well as within the small bowel and portions of the colon. Small amount of rectal contrast is also noted. Small bowel appears fairly normal in size. Degenerative change is scattered within the spine. Radiation implant seeds are noted. Surgical clips are seen from prior cholecystectomy. Impression: 1. Contrast within stomach, small bowel, colon and rectum. Findings rule out complete small bowel obstruction. Persistent contrast within the stomach raises the possibility of gastric emptying problems. Please correlate. 2. Other findings as noted above. Diagnostic code #2
[2021-03-30] MEDS: Ketorolac 30 MG/ML SDV IVPUSH PRN (18:21)
[2021-03-31] MEDS: Piperacillin/Tazobactam 4.5 GM in Sodium Chloride 0.9% 100 ML IV SCH (03:00)
[2021-03-31] MEDS: Trospium 20 MG Tab PO SCH (05:06)
[2021-03-31] MEDS: Lactated Ringers 1,000 ML IV SCH (05:06)
[2021-03-31] MEDS: Enoxaparin 40 MG/0.4 ML Syringe SUBCUT SCH (08:02)
[2021-03-31] MEDS: Pantoprazole 40 MG Tab.CR PO SCH (08:02)
[2021-03-31] MEDS: Tamsulosin 0.4 MG Cap.ER PO SCH (08:02)
[2021-03-31] MEDS: Mirabegron 25 MG Tab.Er PO SCH (08:02)
[2021-03-31] MEDS: Metoprolol Succinate 25 MG Tab.ER PO SCH (08:02)
[2021-03-31] MEDS: Ubidecarenone [Coenzyme Q10] 10 MG Capsule PO SCH (08:03)
[2021-03-31] MEDS ORDERED: Potassium Chloride 20 MEQ Tab.ER PO ONE (09:51)
--- NOTE | 2021-03-31 10:31 | PCM.SURGPN ---
- General Info Date of Service: 03/31/21 Admission Diagnosis/Problem: Partial small bowel obstruction Functional Status: Reports: Pain Controlled, Tolerating Diet (started on regular diet last night), Other (had ROBF with bowel movements yesterday. Last BM was this AM) - Patient Data Vitals - Most Recent: Last Vital Signs Temp 36.9 C 03/31/21 07:56 Pulse 88 03/31/21 08:02 Resp 12 03/31/21 07:56 BP 158/71 H 03/31/21 08:02 Pulse Ox 93 L 03/31/21 07:56 Weight - Most Recent: 87.543 kg I&O - Last 24 Hours: Intake & Output 03/30/21 03/31/21 03/31/21 22:59 06:59 14:59 Intake Total 770 1425 Output Total 400 925 Balance 370 500 Lab Results Last 24 Hrs: Laboratory Results - last 24 hr 03/31/21 03/31/21 Range/Units 05:15 05:35 WBC 5.41 (4.23-9.07) K/mm3 RBC 3.13 L (4.63-6.08) M/mm3 Hgb 9.2 L (13.7-17.5) gm/dl Hct 29.5 L (40.1-51.0) % MCV 94.2 H (79.0-92.2) fl MCH 29.4 (25.7-32.2) pg MCHC 31.2 L (32.2-35.5) g/dl RDW Std Deviation 54.7 H (35.1-43.9) fL Plt Count 204 (163-337) K/mm3 MPV 8.7 L (9.4-12.3) fl Neut % (Auto) 45.5 (34.0-67.9) % Lymph % (Auto) 39.7 (21.8-53.1) % [place] % (Auto) 11.8 (5.3-12.2) % Eos % (Auto) 2.4 (0.8-7.0) Baso % (Auto) 0.4 (0.1-1.2) % Neut # (Auto) 2.46 (1.78-5.38) K/mm3 Lymph # (Auto) 2.15 (1.32-3.57) K/mm3 [place] # (Auto) 0.64 (0.30-0.82) K/mm3 Eos # (Auto) 0.13 (0.04-0.54) K/mm3 Baso # (Auto) 0.02 (0.01-0.08) K/mm3 Sodium 140 (136-145) mEq/L Potassium 3.4 L (3.5-5.1) mEq/L Chloride 103 (98-107) mEq/L Carbon Dioxide 29 (21-32) mEq/L Anion Gap 11.4 (5-15) BUN 9 (7-18) mg/dL Creatinine 0.7 (0.7-1.3) mg/dL Est Cr Clr Drug Dosing 88.21 mL/min Estimated GFR (MDRD) > 60 (>60) mL/min BUN/Creatinine Ratio 12.9 L (14-18) Glucose 98 (70-99) mg/dL Calcium 8.7 (8.5-10.1) mg/dL Phosphorus 3.0 (2.6-4.7) mg/dL Magnesium 1.8 (1.8-2.4) mg/dL C-Reactive Protein 12.8 H* (<1.0) mg/dL Med Orders - Current: Current Medications Albuterol (Albuterol 6.7 Gm Inhaler) 0 gm INH Q6H PRN PRN Reason: Shortness of Breath Artificial Tears (Carboxymethylcellulose Sodium 1% Ophth Gel 15 Ml Bottle) 0 ml EYEBOTH Q6H PRN PRN Reason: Dry Eyes Enoxaparin Sodium (Enoxaparin 40 Mg/0.4 Ml Syringe) 40 mg SUBCUT DAILY [facility] Last Admin: 03/31/21 08:02 Dose: 40 mg Documented by: Fluticasone Propionate (Fluticasone Propionate Nasal [place] 16 Gm Bottle) 0 gm NASBOTH DAILY PRN PRN Reason: Allergies Hydromorphone HCl (Hydromorphone 1 Mg/Ml Syringe) 1 mg IVPUSH Q6H PRN PRN Reason: Abdominal Pain Last Admin: 03/30/21 12:01 Dose: 1 mg Documented by: Piperacillin Sod/Tazobactam (Sod 4.5 gm/ Sodium Chloride) 100 mls @ 25 mls/hr IV Q8H [facility] Last Admin: 03/31/21 03:00 Dose: 25 mls/hr Documented by: Lactated Ringer's (Ringers, Lactated) 1,000 mls @ 75 mls/hr IV ASDIRECTED [facility] Last Admin: 03/31/21 05:06 Dose: 75 mls/hr Documented by: Ketorolac Tromethamine (Ketorolac 30 Mg/Ml Sdv) 30 mg IVPUSH Q6H PRN PRN Reason: Pain (moderate 4-6) Last Admin: 03/30/21 18:21 Dose: 30 mg Documented by: Metoprolol Succinate (Metoprolol Succinate 25 Mg Tab.Er) 25 mg PO DAILY [facility] Last Admin: 03/31/21 08:02 Dose: 25 mg Documented by: Ondansetron HCl (Ondansetron 4 Mg/2 Ml Sdv) 4 mg IV Q4H PRN PRN Reason: Nausea/Vomiting Pantoprazole Sodium (Pantoprazole 40 Mg Tab.Cr) 40 mg PO DAILY [facility] Last Admin: 03/31/21 08:02 Dose: 40 mg Documented by: Mirabegron 25 Mg Tab (.Er) 0 each PO DAILY [facility] Last Admin: 03/31/21 08:02 Dose: 50 each Documented by: Ubidecarenone [ Coenzyme Q10] 10 Mg Capsule 0 each PO DAILY [facility] Last Admin: 03/31/21 08:03 Dose: 200 each Documented by: Saccharomyces Boulardii (Saccharomyces Boulardii (Probiotic) 250 Mg Cap) 250 mg PO DAILY@1200 [facility] Last Admin: 03/30/21 12:01 Dose: 250 mg Documented by: Sodium Chloride (Sodium Chloride 0.9% 10 Ml Syringe) 10 ml FLUSH ASDIRECTED PRN PRN Reason: Keep Vein Open Last Admin: 03/28/21 16:27 Dose: 10 ml Documented by: Tamsulosin HCl (Tamsulosin 0.4 Mg Cap.Er) 0.4 mg PO DAILY [facility] Last Admin: 03/31/21 08:02 Dose: 0.4 mg Documented by: Trospium (Trospium 20 Mg Tab) 20 mg PO BIDAC [facility] Last Admin: 03/31/21 05:06 Dose: 20 mg Documented by: Discontinued Medications Artificial Tears (Polyvinyl Alcohol 1.4% Ophth Soln 15 Ml Bottle) 0 ml EYEBOTH Q6H PRN PRN Reason: Dry Eyes Diatrizoate Meglum/Diatrizoate Sod (Diatrizoate Meglumine/Diatrizoate Sodium 37% 120 Ml Bottle) 120 ml PO ONETIME ONE Stop: 03/30/21 09:58 Last Admin: 03/30/21 10:22 Dose: 120 ml Documented by: Hydromorphone HCl (Hydromorphone 0.5 Mg/0.5 Ml Syringe) 0.5 mg IVPUSH ONETIME ONE Stop: 03/28/21 16:54 Last Admin: 03/28/21 17:27 Dose: 0.5 mg Documented by: Hydromorphone HCl (Hydromorphone 0.5 Mg/0.5 Ml Syringe) 0.5 mg IVPUSH Q3H PRN PRN Reason: Abdominal Pain Last Admin: 03/28/21 19:53 Dose: 0.5 mg Documented by: Hydromorphone HCl (Hydromorphone 1 Mg/Ml Syringe) 1 mg IVPUSH Q3H PRN PRN Reason: Abdominal Pain Last Admin: 03/30/21 01:04 Dose: 1 mg Documented by: Sodium Chloride (Normal Saline) 1,000 mls @ 150 mls/hr IV ONETIME ONE Stop: 03/28/21 23:31 Last Admin: 03/28/21 17:28 Dose: 150 mls/hr Documented by: Lactated Ringer's (Ringers, Lactated) 1,000 mls @ 125 mls/hr IV ASDIRECTED [facility] Last Admin: 03/28/21 23:34 Dose: 125 mls/hr Documented by: Piperacillin Sod/Tazobactam (Sod 4.5 gm/ Sodium Chloride) 100 mls @ 25 mls/hr IV ONETIME ONE Stop: 03/28/21 22:59 Last Admin: 03/28/21 19:54 Dose: 25 mls/hr Documented by: Magnesium Sulfate 4 gm/ Premix 50 mls @ 12.5 mls/hr IV ONETIME ONE Stop: 03/29/21 11:19 Last Admin: 03/29/21 08:09 Dose: 12.5 mls/hr Documented by: Ketorolac Tromethamine (Ketorolac 30 Mg/Ml Sdv) 30 mg IM Q6H PRN PRN Reason: Pain (moderate 4-6) Ondansetron HCl (Ondansetron 4 Mg/2 Ml Sdv) 4 mg IVPUSH ONETIME ONE Stop: 03/28/21 16:54 Last Admin: 03/28/21 17:26 Dose: 4 mg Documented by: Potassium Chloride (Potassium Chloride 20 Meq Tab.Er) 20 meq PO ONETIME ONE Stop: 03/31/21 09:52 - Exam General: Alert, Oriented HEENT: EOMI Lungs: Normal Respiratory Effort GI/Abdominal Exam: Soft, Non-Tender, Distended Sepsis Event Note - Evaluation Sepsis Screening Result: No Definite Risk - Focused Exam Vital Signs: Vital Signs Temp Pulse Resp BP Pulse Ox 03/31/21 08:02 88 158/71 H 03/31/21 07:56 36.9 C 88 12 158/71 H 93 L 03/31/21 05:03 37.2 C 83 13 140/69 94 L - Problem List & Annotations (1) Partial small bowel obstruction SNOMED Code(s): 144904583 Code(s): K56.600 - PARTIAL INTESTINAL OBSTRUCTION, UNSPECIFIED TO CAUSE Status: Acute Current Visit: Yes - Problem List Review Problem List Initiated/Reviewed/Updated: Yes - My Orders Last 24 Hours: Active Orders 24 hr Category Date Time Status Patient Status [ADT] Routine ADT 03/30/21 14:31 Active Regular Diet [DIET] Diet 03/31/21 Breakfast Active BASIC METABOLIC PANEL,BMP [CHEM] AM Lab 04/01/21 05:11 Ordered BASIC METABOLIC PANEL,BMP [CHEM] AM Lab 04/02/21 05:11 Ordered CBC WITH AUTO DIFF [HEME] AM Lab 04/01/21 05:11 Ordered CBC WITH AUTO DIFF [HEME] AM Lab 04/02/21 05:11 Ordered CRP [C-REACTIVE PROTEIN] [CHEM] AM Lab 04/01/21 05:11 Ordered CRP [C-REACTIVE PROTEIN] [CHEM] AM Lab 04/02/21 05:11 Ordered CRP [C-REACTIVE PROTEIN] [CHEM] AM Lab 04/03/21 05:11 Ordered MAGNESIUM [CHEM] AM Lab 04/01/21 05:11 Ordered MAGNESIUM [CHEM] AM Lab 04/02/21 05:11 Ordered PHOSPHORUS [CHEM] AM Lab 04/01/21 05:11 Ordered PHOSPHORUS [CHEM] AM Lab 04/02/21 05:11 Ordered Carboxymethylcellulose Sodium [Refresh Liquigel 1%] Med 03/30/21 10:04 Active 0 ml EYEBOTH Q6H PRN HYDROmorphone [Dilaudid] Med 03/30/21 09:59 Active 1 mg IVPUSH Q6H PRN Medication Orders Albuterol (Albuterol 6.7 Gm Inhaler) 0 gm INH Q6H PRN PRN Reason: Shortness of Breath Artificial Tears (Carboxymethylcellulose Sodium 1% Ophth Gel 15 Ml Bottle) 0 ml EYEBOTH Q6H PRN PRN Reason: Dry Eyes Enoxaparin Sodium (Enoxaparin 40 Mg/0.4 Ml Syringe) 40 mg SUBCUT DAILY [facility] Last Admin: 03/31/21 08:02 Dose: 40 mg Documented by: Admin: 03/30/21 10:23 Dose: 40 mg Documented by: Admin: 03/29/21 08:24 Dose: 40 mg Documented by: SHARAN Fluticasone Propionate (Fluticasone Propionate Nasal [place] 16 Gm Bottle) 0 gm NASBOTH DAILY PRN PRN Reason: Allergies Hydromorphone HCl (Hydromorphone 1 Mg/Ml Syringe) 1 mg IVPUSH Q6H PRN PRN Reason: Abdominal Pain Last Admin: 03/30/21 12:01 Dose: 1 mg Documented by: SWATI Piperacillin Sod/Tazobactam (Sod 4.5 gm/ Sodium Chloride) 100 mls @ 25 mls/hr IV Q8H [facility] Last Admin: 03/31/21 03:00 Dose: 25 mls/hr Documented by: Infusion: 03/30/21 22:20 Dose: 25 mls/hr Documented by: Admin: 03/30/21 18:20 Dose: 25 mls/hr Documented by: Infusion: 03/30/21 14:22 Dose: 25 mls/hr Documented by: Admin: 03/30/21 10:22 Dose: 25 mls/hr Documented by: Infusion: 03/30/21 07:41 Dose: 25 mls/hr Documented by: Admin: 03/30/21 03:41 Dose: 25 mls/hr Documented by: Infusion: 03/29/21 22:22 Dose: 25 mls/hr Documented by: Admin: 03/29/21 18:22 Dose: 25 mls/hr Documented by: Infusion: 03/29/21 16:12 Dose: 25 mls/hr Documented by: Admin: 03/29/21 12:12 Dose: 25 mls/hr Documented by: Infusion: 03/29/21 06:05 Dose: 25 mls/hr Documented by: Admin: 03/29/21 02:05 Dose: 25 mls/hr Documented by: RITA Lactated Ringer's (Ringers, Lactated) 1,000 mls @ 75 mls/hr IV ASDIRECTED [facility] Last Admin: 03/31/21 05:06 Dose: 75 mls/hr Documented by: Infusion: 03/31/21 05:06 Dose: 75 mls/hr Documented by: Admin: 03/30/21 16:33 Dose: 75 mls/hr Documented by: Infusion: 03/30/21 07:45 Dose: 75 mls/hr Documented by: Admin: 03/29/21 18:25 Dose: 75 mls/hr Documented by: SHARAN Ketorolac Tromethamine (Ketorolac 30 Mg/Ml Sdv) 30 mg IVPUSH Q6H PRN PRN Reason: Pain (moderate 4-6) Last Admin: 03/30/21 18:21 Dose: 30 mg Documented by: Admin: 03/29/21 14:22 Dose: 30 mg Documented by: Admin: 03/29/21 06:23 Dose: 30 mg Documented by: Admin: 03/28/21 22:13 Dose: 30 mg Documented by: RITA Metoprolol Succinate (Metoprolol Succinate 25 Mg Tab.Er) 25 mg PO DAILY [facility] Last Admin: 03/31/21 08:02 Dose: 25 mg Documented by: Admin: 03/30/21 10:21 Dose: 25 mg Documented by: Admin: 03/29/21 08:23 Dose: 25 mg Documented by: SHARAN Ondansetron HCl (Ondansetron 4 Mg/2 Ml Sdv) 4 mg IV Q4H PRN PRN Reason: Nausea/Vomiting Pantoprazole Sodium (Pantoprazole 40 Mg Tab.Cr) 40 mg PO DAILY [facility] Last Admin: 03/31/21 08:02 Dose: 40 mg Documented by: Admin: 03/30/21 10:22 Dose: 40 mg Documented by: Admin: 03/29/21 08:23 Dose: 40 mg Documented by: SHARAN Mirabegron 25 Mg Tab (.Er) 0 each PO DAILY [facility] Last Admin: 03/31/21 08:02 Dose: 50 each Documented by: Admin: 03/30/21 10:22 Dose: 50 each Documented by: Admin: 03/29/21 08:25 Dose: Not Given Documented by: SHARAN Ubidecarenone [ Coenzyme Q10] 10 Mg Capsule 0 each PO DAILY [facility] Last Admin: 03/31/21 08:03 Dose: 200 each Documented by: Admin: 03/30/21 10:22 Dose: 200 each Documented by: Admin: 03/29/21 08:25 Dose: Not Given Documented by: SHARAN Saccharomyces Boulardii (Saccharomyces Boulardii (Probiotic) 250 Mg Cap) 250 mg PO DAILY@1200 [facility] Last Admin: 03/30/21 12:01 Dose: 250 mg Documented by: Admin: 03/29/21 12:12 Dose: 250 mg Documented by: MADAN Sodium Chloride (Sodium Chloride 0.9% 10 Ml Syringe) 10 ml FLUSH ASDIRECTED PRN PRN Reason: Keep Vein Open Last Admin: 03/28/21 16:27 Dose: 10 ml Documented by: BROWN Tamsulosin HCl (Tamsulosin 0.4 Mg Cap.Er) 0.4 mg PO DAILY [facility] Last Admin: 03/31/21 08:02 Dose: 0.4 mg Documented by: Admin: 03/30/21 10:22 Dose: 0.4 mg Documented by: Admin: 03/29/21 08:22 Dose: 0.4 mg Documented by: SHARAN Trospium (Trospium 20 Mg Tab) 20 mg PO BIDAC [facility] Last Admin: 03/31/21 05:06 Dose: 20 mg Documented by: Admin: 03/30/21 16:31 Dose: 20 mg Documented by: Admin: 03/30/21 10:23 Dose: 20 mg Documented by: Admin: 03/29/21 16:39 Dose: 20 mg Documented by: Admin: 03/29/21 06:32 Dose: 20 mg Documented by: RITA - Assessment Assessment (Free Text/Narrative):: 75 y/o man with partial small bowel obstruction vs. ileus, now resolved. - Plan Plan (Free Text/Narrative):: - transition from IV Zosyn to PO augmentin. Pt has augmentin previously prescribed, instructed to continue a 7 day course - regular diet as tolerated - short interval clinic follow up Pt should keep his previously scheduled appointment with ID in [place] Discharge home Susan Shelton MD General surgery
--- NOTE | 2021-03-31 10:36 | PCM.DCSUM1 ---
Discharge Summary - Hospital Course Free Text/Narrative:: the patient is a 75 y/o gentleman with a history of iatrogenic colon perforation, s/p right hemicolectomy and subsequent abscess formation treated with percutaneous drainage. He presented to clinic with ileus vs. partial small bowel obstruction, likely secondary to inflammation at the RUQ anastomosis site. He was admitted for bowel rest and IV Zosyn. on HOD3, he had a small bowel study showing contrast movement into the colon, and had ROBF. He was tolerating diet on HOD4 and was discharged home on PO Augmentin with short interval clinic follow up. Diagnosis: Stroke: No Modified [place] Scale: No Signif.Disability Despite Sympt.Able to Carry Out Usual Act./Duties Modified [place] Scale Score: 1 - Discharge Data Discharge Date: 03/31/21 Discharge Disposition: Home, Self-Care 01 Condition: Good - Referral to Home Health Primary Care Physician: PCP Not In Area - Discharge Diagnosis/Problem(s) (1) Partial small bowel obstruction SNOMED Code(s): 351490873 ICD Code: K56.600 - PARTIAL INTESTINAL OBSTRUCTION, UNSPECIFIED TO CAUSE Status: Acute Current Visit: Yes - Patient Instructions Diet: Usual Diet as Tolerated Activity: As Tolerated Showering/Bathing: May Shower Notify Provider of: Fever, Increased Pain, Nausea and/or Vomiting - Discharge Plan *PRESCRIPTION DRUG MONITORING PROGRAM REVIEWED*: Not Applicable *COPY OF PRESCRIPTION DRUG MONITORING REPORT IN PATIENT LINDA: Not Applicable Home Medications: Home Meds Albuterol Sulfate [Albuterol Sulfate HFA] 2 puff INH Q6HR PRN 01/26/21 [History] Cholecalciferol (Vitamin D3) [Vitamin D3] 25 mcg PO DAILY 01/26/21 [History] Dextran 70/Hypromellose [Artificial Tears Eye Drops] 1 drop EYEBOTH Q6H PRN 01/26/21 [History] Metoprolol Succinate [Toprol XL] 25 mg PO DAILY 01/26/21 [History] Mirabegron [Myrbetriq] 50 mg PO DAILY 01/26/21 [History] Pantoprazole [ProTONIX] 40 mg PO DAILY 01/26/21 [History] Tamsulosin [Flomax] 0.4 mg PO DAILY 01/26/21 [History] Ubidecarenone [Coenzyme Q10] 200 mg PO DAILY 01/26/21 [History] atorvaSTATin [Lipitor] 40 mg PO BEDTIME 01/26/21 [History] diphenhydrAMINE [Benadryl] 25 mg PO BEDTIME 01/26/21 [History] lisinopriL [Lisinopril] 20 mg PO DAILY 01/26/21 [History] Fluticasone Propionate [Flonase] 1 spray NASBOTH DAILY PRN 01/29/21 [History] Tolterodine Tartrate [Detrol LA] 4 mg PO DAILY 01/30/21 [History] Acetaminophen [Tylenol] 650 mg PO Q4H PRN 03/28/21 [History] Amoxicillin/Potassium Clav [Amox-Clav 875-125 mg Tablet] 1 tab PO BID 03/28/21 [History] Aspirin [Aspirin EC] 81 mg PO DAILY 03/28/21 [History] Cetirizine HCl 10 mg PO DAILY 03/28/21 [History] Famotidine 10 mg PO BID 03/28/21 [History] L.acidoph,Paracasei, B.lactis [Probiotic] 1 cap PO 1200 03/28/21 [History] Forms: ED Department Discharge Referrals: PCP,Not In Area [Primary Care Provider] - Susan Shelton MD [Physician] - (Follow up on 04/03/2021) - Discharge Summary/Plan Comment DC Time >30 min.: No - Patient Data Vitals - Most Recent: Last Vital Signs Temp 36.9 C 03/31/21 07:56 Pulse 88 03/31/21 08:02 Resp 12 03/31/21 07:56 BP 158/71 H 03/31/21 08:02 Pulse Ox 93 L 03/31/21 07:56 Weight - Most Recent: 87.543 kg I&O - Last 24 hours: Intake & Output 03/30/21 03/31/21 03/31/21 22:59 06:59 14:59 Intake Total 770 1425 Output Total 400 925 Balance 370 500 Lab Results - Last 24 hrs: Laboratory Results - last 24 hr 03/31/21 03/31/21 Range/Units 05:15 05:35 WBC 5.41 (4.23-9.07) K/mm3 RBC 3.13 L (4.63-6.08) M/mm3 Hgb 9.2 L (13.7-17.5) gm/dl Hct 29.5 L (40.1-51.0) % MCV 94.2 H (79.0-92.2) fl MCH 29.4 (25.7-32.2) pg MCHC 31.2 L (32.2-35.5) g/dl RDW Std Deviation 54.7 H (35.1-43.9) fL Plt Count 204 (163-337) K/mm3 MPV 8.7 L (9.4-12.3) fl Neut % (Auto) 45.5 (34.0-67.9) % Lymph % (Auto) 39.7 (21.8-53.1) % [place] % (Auto) 11.8 (5.3-12.2) % Eos % (Auto) 2.4 (0.8-7.0) Baso % (Auto) 0.4 (0.1-1.2) % Neut # (Auto) 2.46 (1.78-5.38) K/mm3 Lymph # (Auto) 2.15 (1.32-3.57) K/mm3 [place] # (Auto) 0.64 (0.30-0.82) K/mm3 Eos # (Auto) 0.13 (0.04-0.54) K/mm3 Baso # (Auto) 0.02 (0.01-0.08) K/mm3 Sodium 140 (136-145) mEq/L Potassium 3.4 L (3.5-5.1) mEq/L Chloride 103 (98-107) mEq/L Carbon Dioxide 29 (21-32) mEq/L Anion Gap 11.4 (5-15) BUN 9 (7-18) mg/dL Creatinine 0.7 (0.7-1.3) mg/dL Est Cr Clr Drug Dosing 88.21 mL/min Estimated GFR (MDRD) > 60 (>60) mL/min BUN/Creatinine Ratio 12.9 L (14-18) Glucose 98 (70-99) mg/dL Calcium 8.7 (8.5-10.1) mg/dL Phosphorus 3.0 (2.6-4.7) mg/dL Magnesium 1.8 (1.8-2.4) mg/dL C-Reactive Protein 12.8 H* (<1.0) mg/dL Med Orders - Current: Current Medications Albuterol (Albuterol 6.7 Gm Inhaler) 0 gm INH Q6H PRN PRN Reason: Shortness of Breath Artificial Tears (Carboxymethylcellulose Sodium 1% Ophth Gel 15 Ml Bottle) 0 ml EYEBOTH Q6H PRN PRN Reason: Dry Eyes Enoxaparin Sodium (Enoxaparin 40 Mg/0.4 Ml Syringe) 40 mg SUBCUT DAILY [facility] Last Admin: 03/31/21 08:02 Dose: 40 mg Documented by: Fluticasone Propionate (Fluticasone Propionate Nasal [place] 16 Gm Bottle) 0 gm NASBOTH DAILY PRN PRN Reason: Allergies Hydromorphone HCl (Hydromorphone 1 Mg/Ml Syringe) 1 mg IVPUSH Q6H PRN PRN Reason: Abdominal Pain Last Admin: 03/30/21 12:01 Dose: 1 mg Documented by: Piperacillin Sod/Tazobactam (Sod 4.5 gm/ Sodium Chloride) 100 mls @ 25 mls/hr IV Q8H [facility] Last Admin: 03/31/21 03:00 Dose: 25 mls/hr Documented by: Lactated Ringer's (Ringers, Lactated) 1,000 mls @ 75 mls/hr IV ASDIRECTED [facility] Last Admin: 03/31/21 05:06 Dose: 75 mls/hr Documented by: Ketorolac Tromethamine (Ketorolac 30 Mg/Ml Sdv) 30 mg IVPUSH Q6H PRN PRN Reason: Pain (moderate 4-6) Last Admin: 03/30/21 18:21 Dose: 30 mg Documented by: Metoprolol Succinate (Metoprolol Succinate 25 Mg Tab.Er) 25 mg PO DAILY [facility] Last Admin: 03/31/21 08:02 Dose: 25 mg Documented by: Ondansetron HCl (Ondansetron 4 Mg/2 Ml Sdv) 4 mg IV Q4H PRN PRN Reason: Nausea/Vomiting Pantoprazole Sodium (Pantoprazole 40 Mg Tab.Cr) 40 mg PO DAILY [facility] Last Admin: 03/31/21 08:02 Dose: 40 mg Documented by: Mirabegron 25 Mg Tab (.Er) 0 each PO DAILY [facility] Last Admin: 03/31/21 08:02 Dose: 50 each Documented by: Ubidecarenone [ Coenzyme Q10] 10 Mg Capsule 0 each PO DAILY [facility] Last Admin: 03/31/21 08:03 Dose: 200 each Documented by: Saccharomyces Boulardii (Saccharomyces Boulardii (Probiotic) 250 Mg Cap) 250 mg PO DAILY@1200 [facility] Last Admin: 03/30/21 12:01 Dose: 250 mg Documented by: Sodium Chloride (Sodium Chloride 0.9% 10 Ml Syringe) 10 ml FLUSH ASDIRECTED PRN PRN Reason: Keep Vein Open Last Admin: 03/28/21 16:27 Dose: 10 ml Documented by: Tamsulosin HCl (Tamsulosin 0.4 Mg Cap.Er) 0.4 mg PO DAILY [facility] Last Admin: 03/31/21 08:02 Dose: 0.4 mg Documented by: Trospium (Trospium 20 Mg Tab) 20 mg PO BIDAC [facility] Last Admin: 03/31/21 05:06 Dose: 20 mg Documented by: Discontinued Medications Artificial Tears (Polyvinyl Alcohol 1.4% Ophth Soln 15 Ml Bottle) 0 ml EYEBOTH Q6H PRN PRN Reason: Dry Eyes Diatrizoate Meglum/Diatrizoate Sod (Diatrizoate Meglumine/Diatrizoate Sodium 37% 120 Ml Bottle) 120 ml PO ONETIME ONE Stop: 03/30/21 09:58 Last Admin: 03/30/21 10:22 Dose: 120 ml Documented by: Hydromorphone HCl (Hydromorphone 0.5 Mg/0.5 Ml Syringe) 0.5 mg IVPUSH ONETIME ONE Stop: 03/28/21 16:54 Last Admin: 03/28/21 17:27 Dose: 0.5 mg Documented by: Hydromorphone HCl (Hydromorphone 0.5 Mg/0.5 Ml Syringe) 0.5 mg IVPUSH Q3H PRN PRN Reason: Abdominal Pain Last Admin: 03/28/21 19:53 Dose: 0.5 mg Documented by: Hydromorphone HCl (Hydromorphone 1 Mg/Ml Syringe) 1 mg IVPUSH Q3H PRN PRN Reason: Abdominal Pain Last Admin: 03/30/21 01:04 Dose: 1 mg Documented by: Sodium Chloride (Normal Saline) 1,000 mls @ 150 mls/hr IV ONETIME ONE Stop: 03/28/21 23:31 Last Admin: 03/28/21 17:28 Dose: 150 mls/hr Documented by: Lactated Ringer's (Ringers, Lactated) 1,000 mls @ 125 mls/hr IV ASDIRECTED [facility] Last Admin: 03/28/21 23:34 Dose: 125 mls/hr Documented by: Piperacillin Sod/Tazobactam (Sod 4.5 gm/ Sodium Chloride) 100 mls @ 25 mls/hr IV ONETIME ONE Stop: 03/28/21 22:59 Last Admin: 03/28/21 19:54 Dose: 25 mls/hr Documented by: Magnesium Sulfate 4 gm/ Premix 50 mls @ 12.5 mls/hr IV ONETIME ONE Stop: 03/29/21 11:19 Last Admin: 03/29/21 08:09 Dose: 12.5 mls/hr Documented by: Ketorolac Tromethamine (Ketorolac 30 Mg/Ml Sdv) 30 mg IM Q6H PRN PRN Reason: Pain (moderate 4-6) Ondansetron HCl (Ondansetron 4 Mg/2 Ml Sdv) 4 mg IVPUSH ONETIME ONE Stop: 03/28/21 16:54 Last Admin: 03/28/21 17:26 Dose: 4 mg Documented by: Potassium Chloride (Potassium Chloride 20 Meq Tab.Er) 20 meq PO ONETIME ONE Stop: 03/31/21 09:52
== END 2021-03-31 11:26 | disposition home or self-care (01) | DRG 390 ==
LOC: JD.ED 15:48 → JD.MS 17:45 → OBSVTOIN 03-30 14:31
PROVIDERS: ADMIT Surgery; ATTEND Surgery
DX: K56.7 Ileus, unspecified (principal); K56.600 Partial intestinal obstruction, unspecified as to cause; Z20.822 Contact with and (suspected) exposure to COVID-19; H91.90 Unspecified hearing loss, unspecified ear; E66.9 Obesity, unspecified; H54.7 Unspecified visual loss; E78.00 Pure hypercholesterolemia, unspecified; I10 Essential (primary) hypertension; K21.9 Gastro-esophageal reflux disease without esophagitis; Z85.46 Personal history of malignant neoplasm of prostate; Z85.51 Personal history of malignant neoplasm of bladder; Z87.891 Personal history of nicotine dependence; Z68.29 Body mass index [BMI] 29.0-29.9, adult; Z91.09 Other allergy status, other than to drugs and biological substances; Z90.49 Acquired absence of other specified parts of digestive tract; I25.2 Old myocardial infarction; Z79.51 Long term (current) use of inhaled steroids; J30.2 Other seasonal allergic rhinitis; Z98.49 Cataract extraction status, unspecified eye; Z79.82 Long term (current) use of aspirin; Z79.899 Other long term (current) drug therapy
CPT/HCPCS: 0240U; 36415; 74018; 80048; 83735; 84100; 85025; 86140; 96374; 96375; 99284; 96365; 96366; 96367; 96372; 96376; A9270-GY; G0378; J1170; J1650; J1885; J2405; J2543; J3475; J7030; J7120; Q9963